=== PATIENT | female | born 1965 | race Caucasian/White ===

== ENCOUNTER 2017-07-05 15:59 | Observation (INO) | payer MEDICAID, OTHER ==
--- NOTE | 2017-07-05 17:00 | XR ---
EXAMINATION TYPE: XR chest 2V DATE OF EXAM: 07/05/2017 COMPARISON: July 16, 2011 HISTORY: Shortness of breath TECHNIQUE: Frontal and lateral views of the chest are obtained. FINDINGS: Scattered senescent parenchymal changes noted. No evidence for infiltrate. No evidence for atelectasis. Heart size is stable. Mediastinal structures are stable and grossly unremarkable. No evidence for hilar prominence. Degenerative changes dorsal spine. IMPRESSION: 1. No evidence for acute pulmonary disease.
[2017-07-05 17:03] LABS: Basophils # (A) 0.1 k/uL (0-0.2); Basophils % (A) 1 %; Eosinophils # (A) 0.2 k/uL (0-0.7); Eosinophils % (A) 3 %; HCT 33.3 % (34.0-46.0); HGB 10.2 gm/dL (11.4-16.0); Hypochromasia Slight; Lymphocytes # (A) 2.5 k/uL (1.0-4.8); Lymphocytes % (A) 33 %; MCH 23.3 pg (25.0-35.0); MCHC 30.6 g/dL (31.0-37.0); MCV 76.2 fL (80.0-100.0); Mean Platelet Volume 8.4; Monocytes # (A) 0.4 k/uL (0-1.0); Monocytes % (A) 6 %; Neutrophils # (A) 4.2 k/uL (1.3-7.7); Neutrophils % (A) 55 %; Platelet Count 289 k/uL (150-450); RBC 4.37 m/uL (3.80-5.40); RDW 14.2 % (11.5-15.5); WBC 7.5 k/uL (3.8-10.6)
[2017-07-05 17:11] LABS: INR 0.9 (<1.2); Partial Thromboplastin Time 23.2 sec (22.0-30.0); Prothrombin Time 9.5 sec (9.0-12.0)
[2017-07-05 17:13] LABS: ALT 28 U/L (9-52); AST 26 U/L (14-36); Albumin 4.3 g/dL (3.5-5.0); Alkaline Phosphatase 125 U/L (38-126); Anion Gap 15 mmol/L; Blood Urea Nitrogen 15 mg/dL (7-17); Calcium 9.5 mg/dL (8.4-10.2); Carbon Dioxide 23 mmol/L (22-30); Chloride 107 mmol/L (98-107); Creatine Kinase 93 U/L (30-135); Glucose 117 mg/dL (74-99); Lipase 110 U/L (23-300); Magnesium 1.8 mg/dL (1.6-2.3); Potassium 4.3 mmol/L (3.5-5.1); Sodium 145 mmol/L (137-145); Total Bilirubin 0.3 mg/dL (0.2-1.3); Total Protein 7.2 g/dL (6.3-8.2)
[2017-07-05 17:25] LABS: Troponin I <0.012 ng/mL (0.000-0.034)
--- NOTE | 2017-07-05 17:41 | ED ---
General Adult HPI - General Chief complaint: Chest Pain Stated complaint: Chest pain Time Seen by Provider: 07/05/17 16:44 Source: patient, RN notes reviewed, old records reviewed Mode of arrival: wheelchair Limitations: no limitations - History of Present Illness Initial comments: This is a 51-year-old male to the ER for evaluation. This patient presented today for evaluation regards to chest pain. Patient is no family history of chest pain no prior history of chest pain herself. She has no cardiac risk factors, but has had chest pain on and off for a week worse with exertion increasing shortness of breath. Patient has occasional diaphoresis. Currently no chest pain but she is having a racing heart, palpitations. Patient's chest pain is been episodic and weak. She is also felt fatigued - Related Data Home Medications Medication Instructions Recorded Confirmed Baclofen 10 mg PO TID 08/17/15 07/05/17 Gabapentin [Neurontin] 100 mg PO BID 08/17/15 07/05/17 Levothyroxine Sodium [Synthroid] 137 mcg PO QAM 08/17/15 07/05/17 Acetaminophen/Diphenhydramine 1 tab PO HS PRN 07/05/17 07/05/17 [Tylenol PM 500-25mg] Atorvastatin [Lipitor] 10 mg PO HS 07/05/17 07/05/17 Calcium Carbonate/Vitamin D3 1 tab PO DAILY 07/05/17 07/05/17 [Calcium 500-Vit D3 200 Tablet] Multivit with Calcium,Iron,Min 1 tab PO DAILY 07/05/17 07/05/17 [Women's Multivitamin] Allergies Allergy/AdvReac Type Severity Reaction Status Date / Time No Known Allergies Allergy Verified 07/05/17 16:45 Review of Systems ROS Statement: Those systems with pertinent positive or pertinent negative responses have been documented in the HPI. ROS Other: All systems not noted in ROS Statement are negative. Past Medical History Past Medical History: Thyroid Disorder History of Any Multi-Drug Resistant Organisms: None Reported Past Surgical History: Hysterectomy Additional Past Surgical History / Comment(s): thyroidectomy, fatty tumor Past Psychological History: No Psychological Hx Reported Smoking Status: Never smoker Past Alcohol Use History: None Reported Past Drug Use History: None Reported General Exam Limitations: no limitations General appearance: alert, in no apparent distress Head exam: Present: atraumatic, normocephalic, normal inspection Eye exam: Present: normal appearance, PERRL, EOMI. Absent: scleral icterus, conjunctival injection, periorbital swelling ENT exam: Present: normal exam, mucous membranes moist Neck exam: Present: normal inspection. Absent: tenderness, meningismus, lymphadenopathy Respiratory exam: Present: normal lung sounds bilaterally. Absent: respiratory distress, wheezes, rales, rhonchi, stridor Cardiovascular Exam: Present: regular rate, normal rhythm, normal heart sounds. Absent: systolic murmur, diastolic murmur, rubs, gallop, clicks GI/Abdominal exam: Present: soft, normal bowel sounds. Absent: distended, tenderness, guarding, rebound, rigid Extremities exam: Present: normal inspection, full ROM, normal capillary refill. Absent: tenderness, pedal edema, joint swelling, calf tenderness Back exam: Present: normal inspection Neurological exam: Present: alert, oriented X3, CN II-XII intact Psychiatric exam: Present: normal affect, normal mood Skin exam: Present: warm, dry, intact, normal color. Absent: rash Course Vital Signs 07/05/17 16:10 Temperature 97.6 F Pulse Rate 95 Respiratory 20 Rate Blood Pressure 138/80 O2 Sat by Pulse 99 Oximetry - Reevaluation(s) Reevaluation #1: 07/05/17 17:57 Patient still with episodic chest pain here in the emergency room, feels like her heart is racing EKG Findings - EKG Comments: EKG Findings:: EKG shows sinus rhythm rate of 94, WA 138, QRS 90, QTc 442 Medical Decision Making - Medical Decision Making 51 female the ER for evaluation of chest pain. Patient is recent week long history of chest pain, cardiac in nature shortness of breath. Will admit patient for cardiac observation - Lab Data Result diagrams: 07/05/17 16:32 07/05/17 16:32 Lab Results 07/05/17 07/05/17 07/05/17 Range/Units 16:32 16:32 16:32 WBC 7.5 (3.8-10.6) k/uL RBC 4.37 (3.80-5.40) m/uL Hgb 10.2 L (11.4-16.0) gm/dL Hct 33.3 L (34.0-46.0) % MCV 76.2 L (80.0-100.0) fL MCH 23.3 L (25.0-35.0) pg MCHC 30.6 L (31.0-37.0) g/dL RDW 14.2 (11.5-15.5) % Plt Count 289 (150-450) k/uL Neutrophils % 55 % Lymphocytes % 33 % Monocytes % 6 % Eosinophils % 3 % Basophils % 1 % Neutrophils # 4.2 (1.3-7.7) k/uL Lymphocytes # 2.5 (1.0-4.8) k/uL Monocytes # 0.4 (0-1.0) k/uL Eosinophils # 0.2 (0-0.7) k/uL Basophils # 0.1 (0-0.2) k/uL Hypochromasia Slight PT (9.0-12.0) sec INR (<1.2) APTT (22.0-30.0) sec Sodium 145 (137-145) mmol/L Potassium 4.3 (3.5-5.1) mmol/L Chloride 107 (98-107) mmol/L Carbon Dioxide 23 (22-30) mmol/L Anion Gap 15 mmol/L BUN 15 (7-17) mg/dL Creatinine 0.63 (0.52-1.04) mg/dL Est GFR (CKD-EPI)AfAm >90 (>60 ml/min/1.73 sqM) Est GFR (CKD-EPI)NonAf >90 (>60 ml/min/1.73 sqM) Glucose 117 H (74-99) mg/dL Calcium 9.5 (8.4-10.2) mg/dL Magnesium 1.8 (1.6-2.3) mg/dL Total Bilirubin 0.3 (0.2-1.3) mg/dL AST 26 (14-36) U/L ALT 28 (9-52) U/L Alkaline Phosphatase 125 (38-126) U/L Total Creatine Kinase 93 (30-135) U/L CK-MB (CK-2) 1.0 (0.0-2.4) ng/mL CK-MB (CK-2) Rel Index 1.1 Troponin I <0.012 (0.000-0.034) ng/mL NT-Pro-B Natriuret Pep pg/mL Total Protein 7.2 (6.3-8.2) g/dL Albumin 4.3 (3.5-5.0) g/dL Lipase 110 (23-300) U/L 07/05/17 07/05/17 Range/Units 16:32 16:32 WBC (3.8-10.6) k/uL RBC (3.80-5.40) m/uL Hgb (11.4-16.0) gm/dL Hct (34.0-46.0) % MCV (80.0-100.0) fL MCH (25.0-35.0) pg MCHC (31.0-37.0) g/dL RDW (11.5-15.5) % Plt Count (150-450) k/uL Neutrophils % % Lymphocytes % % Monocytes % % Eosinophils % % Basophils % % Neutrophils # (1.3-7.7) k/uL Lymphocytes # (1.0-4.8) k/uL Monocytes # (0-1.0) k/uL Eosinophils # (0-0.7) k/uL Basophils # (0-0.2) k/uL Hypochromasia PT 9.5 (9.0-12.0) sec INR 0.9 (<1.2) APTT 23.2 (22.0-30.0) sec Sodium (137-145) mmol/L Potassium (3.5-5.1) mmol/L Chloride (98-107) mmol/L Carbon Dioxide (22-30) mmol/L Anion Gap mmol/L BUN (7-17) mg/dL Creatinine (0.52-1.04) mg/dL Est GFR (CKD-EPI)AfAm (>60 ml/min/1.73 sqM) Est GFR (CKD-EPI)NonAf (>60 ml/min/1.73 sqM) Glucose (74-99) mg/dL Calcium (8.4-10.2) mg/dL Magnesium (1.6-2.3) mg/dL Total Bilirubin (0.2-1.3) mg/dL AST (14-36) U/L ALT (9-52) U/L Alkaline Phosphatase (38-126) U/L Total Creatine Kinase (30-135) U/L CK-MB (CK-2) (0.0-2.4) ng/mL CK-MB (CK-2) Rel Index Troponin I (0.000-0.034) ng/mL NT-Pro-B Natriuret Pep 60 pg/mL Total Protein (6.3-8.2) g/dL Albumin (3.5-5.0) g/dL Lipase (23-300) U/L - Radiology Data Radiology results: report reviewed (Chest x-rays negative for acute disease), image reviewed Critical Care Time Critical Care Time: Yes Total Critical Care Time: 31 Disposition Clinical Impression: Chest pain Disposition: ADMITTED IP TO THIS HOSP Condition: Undetermined Instructions: Chest Pain (ED) Referrals: Tamela Ngo MD [Primary Care Provider] - 1-2 days
[2017-07-05] MEDS ORDERED: HEPARIN SODIUM,PORCINE 5,000 UNIT/ML 1 ML VIAL IV ONE (17:54)
[2017-07-05] MEDS ORDERED: NITROGLYCERIN SL TABS 0.4 MG TAB SUBLINGUAL PRN (17:54)
[2017-07-05] MEDS ORDERED: ASPIRIN 81 MG PO STA (17:54)
[2017-07-05] MEDS ORDERED: HEPARIN SODIUM,PORCINE 5,000 UNIT/ML 1 ML VIAL IV PRN (17:54)
[2017-07-05] MEDS ORDERED: HEPARIN SOD,PORK IN 0.45% NACL 25,000 UNIT in 0.45% NACL 1 500ML.BAG IV SCH (18:00)
[2017-07-05 20:45] VITALS: BMI 28.8
[2017-07-05] MEDS ORDERED: ACETAMINOPHEN TAB 500 MG TAB PO PRN (21:08)
[2017-07-05] MEDS ORDERED: BACLOFEN 10 MG TAB PO SCH (21:15)
[2017-07-05] MEDS ORDERED: ATORVASTATIN 10 MG TAB PO SCH (21:15)
[2017-07-05] MEDS ORDERED: ACETAMINOPHEN TAB 325 MG TAB PO PRN (21:17)
[2017-07-05] MEDS ORDERED: diphenhydrAMINE 25 MG CAP PO PRN (21:21)
[2017-07-05] MEDS: METOPROLOL TARTRATE 25 MG TAB PO SCH (21:27)
[2017-07-05] MEDS: GABAPENTIN 100 MG CAP PO SCH (21:56)
[2017-07-06 00:37] LABS: Creatine Kinase 72 U/L (30-135)
[2017-07-06 00:50] LABS: Creatine Kinase MB 0.7 ng/mL (0.0-2.4); Troponin I <0.012 ng/mL (0.000-0.034)
[2017-07-06] MEDS ORDERED: LEVOTHYROXINE 137 MCG TAB PO SCH (06:30)
[2017-07-06 06:34] LABS: Mean Platelet Volume 8.2; Platelet Count 244 k/uL (150-450)
[2017-07-06 07:11] LABS: Creatine Kinase 66 U/L (30-135)
[2017-07-06 07:24] LABS: Creatine Kinase MB 0.6 ng/mL (0.0-2.4); Troponin I <0.012 ng/mL (0.000-0.034)
[2017-07-06 07:30] LABS: Cholesterol 193 mg/dL (<200); HDL Cholesterol 57 mg/dL (40-60); LDL Cholesterol,Calculated 82 mg/dL (0-99); Triglycerides 272 mg/dL (<150)
[2017-07-06] MEDS ORDERED: ATORVASTATIN 80 MG TAB PO SCH (09:00)
[2017-07-06] MEDS ORDERED: ASPIRIN 325 MG TAB PO SCH (09:00)
[2017-07-06] MEDS ORDERED: CALCIUM CARB-VIT D 500MG-200UN 1 EACH TAB PO SCH (09:00)
[2017-07-06] MEDS ORDERED: BACLOFEN 10 MG TAB PO SCH (09:00)
--- NOTE | 2017-07-06 09:36 | CONS ---
CONSULTATION CHIEF COMPLAINT: Chest pain and palpitations. HISTORY OF PRESENT ILLNESS: Saray is a 51-year-old lady with history of hypothyroidism, dyslipidemia, and chronic musculoskeletal pain, who presents to the hospital complaining of palpitations, sharp precordial pain. This has been going on for the last several weeks. She reported that this was somewhat worse yesterday and came to the ER and got admitted. Her chest discomfort is sharp, atypical, mild intensity, unrelated to exertion, associated with diaphoresis. There are no clear-cut relieving or exacerbating factors. Since being discharged home, she is doing well and is free of symptoms. EKG on her shows sinus rhythm without significant ST-T wave changes. Patient had 3 sets of cardiac enzymes that were all within normal limits and creatinine is normal at 0.6, hemoglobin is low at 10.2, LDL cholesterol is 82. PAST MEDICAL HISTORY: Significant for hypothyroidism and dyslipidemia. MEDICATIONS: Include Synthroid, Neurontin, baclofen, Lipitor and Tylenol. ALLERGIES: No known drug allergies. FAMILY HISTORY: Significant for premature coronary artery disease. SOCIAL HISTORY: Negative for current smoking, EtOH abuse or drug abuse. REVIEW OF SYSTEMS: HEENT is unremarkable. Cardiac as described above. Respiratory negative. GI negative. negative. Allergy negative. Skin negative. Musculoskeletal significant for arthritis. Psychosocial negative. Endocrine: Negative. Derm: Negative. Constitutional, oncological negative. Rest of the system review is not relevant. EXAM: Comfortable at rest. Vital signs is stable. There is no jugular venous distention. Carotid upstroke is normal. There is no bruit. Chest exam reveals good air entry bilaterally. Heart exam reveals first and second heart sounds. No gallop. No murmur. No rub. Abdomen is soft, nontender. Exam of extremities did not reveal any edema. Dorsalis pedis and posterior tibial pulses are normal. PAPER TUBE GRADER exam did not reveal focal neurological deficits. EKG does not reveal ischemic changes. Cardiac enzymes have been negative. ASSESSMENT: Chest pain, atypical and probably noncardiac in origin. So far, workup is benign and unremarkable. I will obtain a 2D echo and we should be able to discharge her home and arrange an outpatient stress test on her. MMODL / IJN: [id number] /
[2017-07-06] MEDS: METOPROLOL TARTRATE 25 MG TAB PO SCH (10:16)
[2017-07-06] MEDS: GABAPENTIN 100 MG CAP PO SCH (10:21)
[2017-07-06] MEDS ORDERED: MULTIVITAMINS, THERA 1 EACH TAB PO SCH (12:00)
--- NOTE | 2017-07-06 13:39 | ECHOF ---
Referral Reason:chest pain MEASUREMENTS -------- HEIGHT: 170.2 cm WEIGHT: 83.5 kg BP: RVIDd: 2.8 cm (< 3.3) IVSd: 0.9 cm (0.6 - 1.1) LVIDd: 4.8 cm (3.9 - 5.3) LVPWd: 0.8 cm (0.6 - 1.1) IVSs: 1.2 cm LVIDs: 3.6 cm LVPWs: 1.2 cm LA Diam: 3.9 cm (2.7 - 3.8) LAESV Index (A-L): 31.51 ml/m Ao Diam: 2.5 cm (2.0 - 3.7) AV Cusp: 1.7 cm (1.5 - 2.6) LA Diam: 3.9 cm (2.7 - 3.8) MV EXCURSION: 13.818 mm (> 18.000) MV EF SLOPE: 44 mm/s (70 - 150) EPSS: 1.4 cm MV E Hayden: 0.90 m/s MV DecT: 223 ms MV A Hayden: 1.07 m/s MV E/A Ratio: 0.84 RAP: 5.00 mmHg RVSP: 22.12 mmHg FINDINGS -------- Sinus rhythm. This was a technically good study. LV size, wall thickness and systolic function are normal, with an EF greater than 55%. The left alexander tricular size is normal. The right ventricle is normal in size. LA is midly dilated 29-33ml/m2. The right atrial size is normal. The aortic valve is trileaflet, and appears structurally normal. No aortic stenosis or regurgitation. Mild mitral regurgitation is present. Mild tricuspid regurgitation present. There is no evidence of pulmonary hypertension. The right v entricular systolic pressure, as measured by Doppler, is 22.12mmHg. There is no pulmonic regurgitation present. The aortic root size is normal. There is a trivial pericardial effusion present. CONCLUSIONS -------- 1. LV size, wall thickness and systolic function are normal, with an EF greater than 55%. 2. The left ventricular size is normal. 3. LA is midly dilated 29-33ml/m2. 4. The aortic valve is trileaflet, and appears structurally normal. No aortic stenosis or regurgitati on. 5. Mild mitral regurgitation is present. 6. Mild tricuspid regurgitation present. 7. There is no evidence of pulmonary hypertension. 8. The right ventricular systolic pressure, as measured by Doppler, is 22.12mmHg. 9. There is no pulmonic regurgitation present. 10. The aortic root size is normal. 11. There is a trivial pericardial effusion present. FARM LABORER: Brenda Vasquez RDCS
[2017-07-06 16:00] VITALS: BP 144/76; PULSE 81; RESP 18; TEMP 98.4
--- NOTE | 2017-07-06 18:28 | P.HPIM ---
History of Present Illness 51-year-old male to the ER for evaluation. This patient presented today for evaluation regards to chest pain. Patient is no family history of chest pain no prior history of chest pain herself. She has no cardiac risk factors, but has had chest pain on and off for a week worse with exertion increasing shortness of breath. Patient has occasional diaphoresis. Currently no chest pain but she is having a racing heart, palpitations. Patient's chest pain is been episodic and weak. She is also felt fatigued. Patient was ruled out acute coronary syndromes patient was a valid by cardiology and recommending outpatient stress test patient will be discharged . Review of Systems REVIEW OF SYSTEMS: CONSTITUTIONAL: No fever, no malaise, no fatigue. HEENT: No recent visual problems or hearing problems. Denied any sore throat. CARDIOVASCULAR: No orthopnea, PND, no palpitations, no syncope. PULMONARY: No shortness of breath, no cough, no hemoptysis. GASTROINTESTINAL: No diarrhea, no nausea, no vomiting, no abdominal pain. Normoactive bowel sounds. NEUROLOGICAL: No headaches, no weakness, no numbness. HEMATOLOGICAL: Denies any bleeding or petechiae. GENITOURINARY: Denies any burning micturition, frequency, or urgency. MUSCULOSKELETAL/RHEUMATOLOGICAL: Denies any joint pain, swelling, or any muscle pain. ENDOCRINE: Denies any polyuria or polydipsia. The rest of the 14-point review of systems is negative. Past Medical History Past Medical History: Hyperlipidemia, Osteoarthritis (OA), Thyroid Disorder Additional Past Medical History / Comment(s): Restless leg Sx History of Any Multi-Drug Resistant Organisms: None Reported Past Surgical History: Hysterectomy Additional Past Surgical History / Comment(s): thyroidectomy, fatty tumor Past Anesthesia/Blood Transfusion Reactions: Postoperative Nausea & Vomiting ( PONV) Past Psychological History: No Psychological Hx Reported Smoking Status: Never smoker Past Alcohol Use History: None Reported Past Drug Use History: None Reported - Past Family History Father Family Medical History: Cancer, Myocardial Infarction (MD) Additional Family Medical History / Comment(s): Bladder CA, from MD-CABG Mother Family Medical History: Diabetes Mellitus, Hypertension Additional Family Medical History / Comment(s): Mur[place] Son(s) Family Medical History: Diabetes Mellitus Sister(s) Family Medical History: Diabetes Mellitus, Hyperlipidemia Medications and Allergies Home Medications Medication Instructions Recorded Confirmed Type Baclofen 10 mg PO DAILY 08/17/15 07/05/17 History Gabapentin [Neurontin] 100 mg PO BID 08/17/15 07/05/17 History Levothyroxine Sodium [Synthroid] 137 mcg PO QAM 08/17/15 07/05/17 History Acetaminophen/Diphenhydramine 1 tab PO HS PRN 07/05/17 07/05/17 History [Tylenol PM 500-25mg] Atorvastatin [Lipitor] 10 mg PO HS 07/05/17 07/05/17 History Baclofen [Lioresal] 20 mg PO HS 07/05/17 07/05/17 History Calcium Carbonate/Vitamin D3 1 tab PO DAILY 07/05/17 07/05/17 History [Calcium 500-Vit D3 200 Tablet] Multivit with Calcium,Iron,Min 1 tab PO DAILY 07/05/17 07/05/17 History [Women's Multivitamin] Allergies Allergy/AdvReac Type Severity Reaction Status Date / Time No Known Allergies Allergy Verified 07/05/17 20:32 Physical Exam Vitals: Vital Signs Temp Pulse Pulse Resp BP BP BP 07/06/17 16:00 98.4 F 81 18 144/76 07/06/17 12:00 97.6 F 93 16 125/71 07/06/17 08:00 97.7 F 70 14 112/59 07/06/17 04:00 97.9 F 76 16 116/68 07/06/17 03:18 70 16 07/05/17 23:20 72 16 07/05/17 23:16 98.2 F 72 16 126/56 07/05/17 20:00 98.3 F 74 16 150/82 07/05/17 19:12 98.6 F 100 16 145/66 Pulse Ox 07/06/17 16:00 95 07/06/17 12:00 96 07/06/17 08:00 98 07/06/17 04:00 96 07/06/17 03:18 07/05/17 23:20 07/05/17 23:16 97 07/05/17 20:00 97 07/05/17 19:12 100 Intake and Output 07/06/17 07/06/17 07/06/17 06:59 14:59 22:59 Intake Total 579.943 Balance 579.943 Intake: IV 330 0.9 NS @ KVO 160 Heparin Sod,Pork in 0.45% 170 NaCl 25,000 unit In 0.45 % NaCl 1 500ml.bag @ 11.9 UNITS/KG/HR 19.86 mls/hr IV .Q24H [facility] Rx#: [id number] Intake, IV Titration 149.943 Amount Heparin Sod,Pork in 0.45% 149.943 NaCl 25,000 unit In 0.45 % NaCl 1 500ml.bag @ 11.9 UNITS/KG/HR 19.86 mls/hr IV .Q24H [facility] Rx#: [id number] Oral 100 Other: Voiding Method Toilet Toilet # Voids 2 PHYSICAL EXAMINATION: GENERAL: The patient is alert and oriented x3, not in any acute distress. Well developed, well nourished. HEENT: Pupils are round and equally reacting to light. EOMI. No scleral icterus. No conjunctival pallor. Normocephalic, atraumatic. No pharyngeal erythema. No thyromegaly. CARDIOVASCULAR: S1 and S2 present. No murmurs, rubs, or gallops. PULMONARY: Chest is clear to auscultation, no wheezing or crackles. ABDOMEN: Soft, nontender, nondistended, normoactive bowel sounds. No palpable organomegaly. MUSCULOSKELETAL: No joint swelling or deformity. EXTREMITIES: No cyanosis, clubbing, or pedal edema. NEUROLOGICAL: Gross neurological examination did not reveal any focal deficits. SKIN: No rashes. Results CBC & Chem 7: 07/06/17 06:21 07/05/17 16:32 Labs: Abnormal Lab Results - Last 24 Hours (Table) 07/05/17 07/06/17 07/06/17 Range/Units 23:55 06:21 08:10 APTT 36.9 H 43.5 H (22.0-30.0) sec Triglycerides 272 H (<150) mg/dL Thrombosis Risk Factor Assmnt - Choose All That Apply Each Factor Represents 1 point: Age 41-60 years Thrombosis Risk Factor Assessment Total Risk Factor Score: 1 Thrombosis Risk Factor Assessment Level: Low Risk Assessment and Plan Plan: 1 chest pain: Rule out acute coronary syndromes probably related to anxiety noncardiac chest pain outpatient stress test. 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
--- NOTE | 2017-07-06 18:29 | P.DS ---
Providers Date of admission: 07/05/17 17:54 Attending physician: Jorge Lovelace Consults: 07/05/17 17:54 Consult Physician Urgent Consulting Provider: Ramone Roper Consult Reason/Comments: cp Do you want consulting provider notified?: Yes Primary care physician: Jeni Rapp [facility] Course: Please refer to my HPI Patient Condition at Discharge: Undetermined Plan - Discharge Summary Discharge Rx Participant: No New Discharge Prescriptions: No Action Baclofen 10 mg PO DAILY Levothyroxine Sodium [Synthroid] 137 mcg PO QAM Gabapentin [Neurontin] 100 mg PO BID Multivit with Calcium,Iron,Min [Women's Multivitamin] 1 tab PO DAILY Acetaminophen/Diphenhydramine [Tylenol PM 500-25mg] 1 tab PO HS PRN PRN Reason: Pain Calcium Carbonate/Vitamin D3 [Calcium 500-Vit D3 200 Tablet] 1 tab PO DAILY Atorvastatin [Lipitor] 10 mg PO HS Baclofen [Lioresal] 20 mg PO HS Discharge Medication List Baclofen 10 mg PO DAILY 08/17/15 [History] Gabapentin [Neurontin] 100 mg PO BID 08/17/15 [History] Levothyroxine Sodium [Synthroid] 137 mcg PO QAM 08/17/15 [History] Acetaminophen/Diphenhydramine [Tylenol PM 500-25mg] 1 tab PO HS PRN 07/05/17 [ History] Atorvastatin [Lipitor] 10 mg PO HS 07/05/17 [History] Baclofen [Lioresal] 20 mg PO HS 07/05/17 [History] Calcium Carbonate/Vitamin D3 [Calcium 500-Vit D3 200 Tablet] 1 tab PO DAILY [History] Multivit with Calcium,Iron,Min [Women's Multivitamin] 1 tab PO DAILY 07/05/17 [ History] Follow up Appointment(s)/Referral(s): Tamela Ngo MD [Primary Care Provider] - 1-2 days Dante Patricia MD [STAFF PHYSICIAN] - 1 Week (Office will call to arrange follow up appointment) Patient Instructions/Handouts: Chest Pain (ED) Discharge Disposition: HOME SELF-CARE
== END 2017-07-06 17:35 | disposition home or self-care (01) ==
LOC: EC 15:59 → 3SUR 17:54
PROVIDERS: ADMIT Hospitalist; ATTEND Hospitalist
DX: R07.89 Other chest pain (principal); R07.2 Precordial pain; R00.0 Tachycardia, unspecified; R00.2 Palpitations; M79.1 Myalgia; R53.1 Weakness; G89.29 Other chronic pain; R06.02 Shortness of breath; M54.5 Low back pain; E89.0 Postprocedural hypothyroidism; R61 Generalized hyperhidrosis; F41.9 Anxiety disorder, unspecified; D64.9 Anemia, unspecified; G25.81 Restless legs syndrome; M19.90 Unspecified osteoarthritis, unspecified site; E78.5 Hyperlipidemia, unspecified; G62.9 Polyneuropathy, unspecified; Z79.899 Other long term (current) drug therapy; Z82.49 Family history of ischemic heart disease and other diseases of the circulatory system; Z80.52 Family history of malignant neoplasm of bladder; Z83.3 Family history of diabetes mellitus
CPT/HCPCS: 99291 ×2; 96376 ×2; 96365; 96366 ×3; 36415; 93005; 93306; 83880; 80061; 80053; 82550 ×2; 82553 ×2; 83690; 83735; 84484 ×2; 85025; 85049; 85610; 85730 ×2; 71046; G0378 ×2; J1644 ×2

== ENCOUNTER 2017-08-16 10:20 | Day surgery (SDC) | payer MEDICAID ==
[2017-08-13 14:42] VITALS: BMI 30.4
[~2017-08-16 10:20] MED LIST: ALPRAZolam 0.25 MG TAB PO PRN; ALPRAZolam 0.5 MG TAB PO PRN; ASPIRIN 325 MG TAB PO STA; NITROGLYCERIN SL TABS 0.4 MG TAB SUBLINGUAL PRN; SODIUM CHLORIDE 0.9% 1,000 ML in EMPTY BAG 1 BAG IV ONE
[2017-08-16 11:08] LABS: Anisocytosis Slight; Basophils % (A) 1 %; Eosinophils # (A) 0.2 k/uL (0-0.7); Eosinophils % (A) 3 %; HCT 38.6 % (34.0-46.0); HGB 12.4 gm/dL (11.4-16.0); Lymphocytes # (A) 1.3 k/uL (1.0-4.8); Lymphocytes % (A) 25 %; MCH 25.7 pg (25.0-35.0); MCV 80.3 fL (80.0-100.0); Mean Platelet Volume 7.9; Microcytosis Slight; Monocytes # (A) 0.3 k/uL (0-1.0); Monocytes % (A) 6 %; Neutrophils # (A) 3.2 k/uL (1.3-7.7); Neutrophils % (A) 63 %; Platelet Count 251 k/uL (150-450); RBC 4.81 m/uL (3.80-5.40); RDW 18.4 % (11.5-15.5); WBC 5.1 k/uL (3.8-10.6)
[2017-08-16 11:15] VITALS: PULSE 90; RESP 20; TEMP 99.2
[2017-08-16 11:18] LABS: Anion Gap 14 mmol/L; Blood Urea Nitrogen 10 mg/dL (7-17); Calcium 9.8 mg/dL (8.4-10.2); Carbon Dioxide 27 mmol/L (22-30); Chloride 104 mmol/L (98-107); Glucose 94 mg/dL (74-99); Potassium 4.4 mmol/L (3.5-5.1); Sodium 145 mmol/L (137-145)
[2017-08-16] MEDS ORDERED: MIDAZOLAM 2 MG/2 ML VIAL IV ONE (12:39)
[2017-08-16] MEDS ORDERED: LIDOCAINE 2% INJ 20 MG/ML SQ ONE (12:42)
[2017-08-16] MEDS ORDERED: HEPARIN SODIUM 1,000 UN/ML (10ML VL) IV ONE (12:46)
[2017-08-16] MEDS ORDERED: fentaNYL (PF) 50 MCG/ML 2 ML AMP IV ONE (12:48)
[2017-08-16] MEDS ORDERED: IOPAMIDOL-370 125ML BTL INJ ONE (12:50)
[2017-08-16] MEDS ORDERED: RX INFO: IV CONTRAST WAS GIVEN 1 EACH MISC MISCELLANE PRN (12:56)
[2017-08-16] MEDS ORDERED: SODIUM CHLORIDE 0.9% 1,000 ML IV SCH (13:00)
--- NOTE | 2017-08-16 14:53 | LTR ---
August 16, [address] Ngo: Mrs. Saray Merrill underwent a heart catheterization and that revealed normal coronaries. I want to thank you for allowing me to participate in the care and please do not hesitate to call if you have any question or concern. AYSHA / IJN: [id number] /
--- NOTE | 2017-08-16 15:11 | CC ---
CARDIAC CATHETERIZATION REPORT DATE OF SERVICE: 08/16/2017 PERFORMING PHYSICIAN: Lul Jolly MD, Carpet Cleaner. PROCEDURE PERFORMED: Selective right and left coronary angiogram. INDICATION: This is a very pleasant 51-year-old female patient who was having chest discomfort and underwent myocardial perfusion imaging stress test and that revealed anterior ischemia. Because of that, a heart catheterization was recommended. APPROACH: Right radial artery. COMPLICATION: None. LEVEL OF SEDATION: Moderate with sedation length of 12 minutes. PROCEDURE DESCRIPTION: After obtaining an informed consent, the patient was brought to the Cardiac [employer]iting [employer]. The right radial artery was cannulated using micropuncture technique. The micropuncture wire passed easily, then I placed a 6-Wallisian sheath in the right radial artery. After that, I gave the patient 2 mg of verapamil IA and 8000 units of heparin IV. Selective right and left coronary angiogram was performed using JR4 and JL3.5 catheters and the procedure was performed without any complication. SELECTIVE CORONARY ANGIOGRAM: 1. The right coronary artery is a large caliber vessel and it is a dominant vessel. It is angiographically normal. Distally bifurcates into PDA and PLV branches, both are angiographically normal. 2. The left main is angiographically normal. It bifurcates into left circumflex, ramus intermedius, and left anterior descending artery. 3. The left circumflex is a large caliber vessel. It is a nondominant vessel. The proximal circ is angiographically normal. The mid circ is normal and gives rise into OM branch which seems to be angiographically normal and the circ distally is angiographically normal. 4. The ramus intermedius is a large caliber vessel and seems to be angiographically normal. 5. The LAD: The proximal LAD is normal. The mid LAD is normal and gives rise into a large diagonal branch which seems to be angiographically normal and then distally becomes small caliber vessel and seems to be normal as well. CONCLUSION: Normal coronary angiogram. POSTPROCEDURE MANAGEMENT: Maximize medical treatment and follow up with the patient. MMODL / IJN: [id number] /
[2017-08-16 18:10] VITALS: BP 133/67
== END 2017-08-16 18:00 | disposition home or self-care (01) ==
LOC: CATHCVL 10:20
PROVIDERS: ATTEND Internal Medicine Interventional Cardiology
DX: R07.89 Other chest pain (principal); R94.39 Abnormal result of other cardiovascular function study; E78.5 Hyperlipidemia, unspecified; Z82.49 Family history of ischemic heart disease and other diseases of the circulatory system; Z79.82 Long term (current) use of aspirin; Z79.890 Hormone replacement therapy; Z79.899 Other long term (current) drug therapy
CPT/HCPCS: 93454; 80048; 85025; C1894; J2001; J2250; J3010; J1644; Q9967

== ENCOUNTER → 2018-07-22 | Outpatient (CLI) | payer MEDICAID ==
--- NOTE | 2018-07-22 22:09 | CT ---
EXAMINATION TYPE: CT abdomen pelvis w con DATE OF EXAM: 07/22/2018 HISTORY: abdominal mass, ascending colon mass per order. CT DLP: 1133.0mGycm Automated Exposure Control for Dose Reduction was Utilized. CONTRAST: CT scan of the abdomen and pelvis is performed with IV Contrast, patient injected with 100 mL of Isov ue 300. COMPARISON: CT abdomen and pelvis July 16, 2011 FINDINGS: LUNG BASES: There is right basilar linear scarring and/or atelectasis. There is a tiny pericardial ef fusion. LIVER/GB: Liver is diffusely low dense consistent with fatty infiltration. No suspicious focal masses are clearly seen.. PANCREAS: No significant abnormality is seen. SPLEEN: No significant abnormality is seen. ADRENALS: No significant abnormality is seen. KIDNEYS: There is symmetric cortical medullary uptake and excretion without hydronephrosis seen bilat erally.. BOWEL: Oral contrast reaches the level of rectum. Normal contrast-filled appendix is seen from the ba se of cecum. Focal mild wall thickening in the right colon axial image 47 could reflect polypoid type mass or neoplasm corresponding to coronal image 30. This additional area of mild wall thickening chris r the hepatic flexure. No suspicious adjacent adenopathy is seen. There is mild wall thickening over a longer segment in the mid to distal sigmoid colon with rare diverticula. No CT evidence for acute d iverticulitis. UTERUS/ADNEXA: Uterus is surgically absent or markedly atrophic. Scattered pelvic phleboliths are pre sent. LYMPH NODES: No greater than 1cm abdominal or pelvic lymph nodes are appreciated. OSSEOUS STRUCTURES: Advanced disc space narrowing at L5-S1 level is seen. OTHER: No significant additional abnormality is seen. IMPRESSION: 1. Primary right sided mass or neoplasm not well visualized on CT versus presumed colonoscopy. No met astatic disease or suspicious adenopathy is noted.
== END ==
LOC: RADCTMAIN 14:37
PROVIDERS: ATTEND Surgery
DX: K63.89 Other specified diseases of intestine (principal)
CPT/HCPCS: 74177; Q9967

== ENCOUNTER → 2018-07-22 | Day surgery (SDC) | payer MEDICAID ==
[2018-07-18 10:50] VITALS: BMI 31.3
[~2018-07-22] MED LIST changes: -ALPRAZolam 0.25 MG TAB PO PRN; -ALPRAZolam 0.5 MG TAB PO PRN; -ASPIRIN 325 MG TAB PO STA; +LACTATED RINGERS 1,000 ML IV SCH; +LIDOCAINE 1% 20 ML VIAL (10MG/ML) FOR IV START INTRADERMA PRN; +LIDOCAINE 1% INJ 10MG/ML (20 ML MDV) ONE; +MIDAZOLAM (PF) 2 MG/2 ML VIAL IV PRN; -NITROGLYCERIN SL TABS 0.4 MG TAB SUBLINGUAL PRN; +PROPOFOL 10 MG/ML 20 ML VIAL IV ONE; -SODIUM CHLORIDE 0.9% 1,000 ML in EMPTY BAG 1 BAG IV ONE
[2018-07-22 12:15] VITALS: TEMP 98.2
--- NOTE | 2018-07-22 13:14 | P.PCN ---
Date of Procedure: 07/22/18 Preoperative Diagnosis: Colon cancer screening Postoperative Diagnosis: Ascending colon mass, colon polyps, diverticulosis Procedure(s) Performed: Colonoscopy with polypectomy and biopsy Anesthesia: MAC Surgeon: Claudia Gatica Pathology: other Condition: stable Disposition: PACU Indications for Procedure: Patient presented for screening. Description of Procedure: The patient's taken to the endoscopy suite where colonoscope is passed per rectum to the cecum. She has a good prep. There is a few diverticuli noted in the sigmoid colon. She has 2 small polyps in the left: 1:30 and one at 70 cm which are removed with a lumpectomy snare. Just proximal to the ileocecal fat pad there is a large polypoid mass. This is likely a small colon cancer or very large dysplastic polyp. Polypectomy snare was used to remove a segment and sent for pathology. The rest the colon was without evidence of mass lesion ulcer or other mucosal abnormality. She tolerated the procedure without difficulty and is taken recovery room in satisfactory condition. Set her up for a computed tomography scan of the abdomen in order a CEA. There in the office in a week. Plan - Discharge Summary Discharge Rx Participant: No New Discharge Prescriptions: No Action Baclofen 10 mg PO TID Levothyroxine Sodium [Synthroid] 137 mcg PO QAM Gabapentin [Neurontin] 100 mg PO BID Multivit with Calcium,Iron,Min [Women's Multivitamin] 1 tab PO DAILY Atorvastatin [Lipitor] 10 mg PO HS Metoprolol Tartrate [Lopressor] 25 mg PO HS PRN PRN Reason: increased heart rate Ferrous Sulfate [Iron (65 MG Elemental)] 325 mg PO BID Aspirin 81 mg PO DAILY Discharge Medication List Baclofen 10 mg PO TID 08/17/15 [History] Gabapentin [Neurontin] 100 mg PO BID 08/17/15 [History] Levothyroxine Sodium [Synthroid] 137 mcg PO QAM 08/17/15 [History] Atorvastatin [Lipitor] 10 mg PO HS 07/05/17 [History] Multivit with Calcium,Iron,Min [Women's Multivitamin] 1 tab PO DAILY 07/05/17 [History] Aspirin 81 mg PO DAILY 08/13/17 [History] Ferrous Sulfate [Iron (65 MG Elemental)] 325 mg PO BID 08/13/17 [History] Metoprolol Tartrate [Lopressor] 25 mg PO HS PRN 08/13/17 [History]
[2018-07-22 13:57] VITALS: BP 149/84; PULSE 75
[2018-07-22 15:16] LABS: Blood Urea Nitrogen 13 mg/dL (7-17)
== END | disposition home or self-care (01) ==
LOC: ORWHC2ENDO 11:37
PROVIDERS: ATTEND Surgery
DX: Z12.11 Encounter for screening for malignant neoplasm of colon (principal); D12.2 Benign neoplasm of ascending colon; D12.4 Benign neoplasm of descending colon; K57.30 Diverticulosis of large intestine without perforation or abscess without bleeding; E78.5 Hyperlipidemia, unspecified; E07.9 Disorder of thyroid, unspecified; G25.81 Restless legs syndrome; G62.9 Polyneuropathy, unspecified; M19.90 Unspecified osteoarthritis, unspecified site; Z79.890 Hormone replacement therapy; Z79.899 Other long term (current) drug therapy; Z79.82 Long term (current) use of aspirin
CPT/HCPCS: 88305; 82378; 82565; 84520; 45385; J2001; J2704

== ENCOUNTER → 2018-08-23 | Outpatient (CLI) | payer MEDICAID ==
[2018-08-23 11:00] LABS: HCT 40.4 % (34.0-46.0); HGB 12.9 gm/dL (11.4-16.0); MCH 28.2 pg (25.0-35.0); MCHC 31.9 g/dL (31.0-37.0); MCV 88.5 fL (80.0-100.0); Platelet Count 248 k/uL (150-450); RBC 4.56 m/uL (3.80-5.40); RDW 14.1 % (11.5-15.5); WBC 6.2 k/uL (3.8-10.6)
[2018-08-23 11:14] LABS: Potassium 4.2 mmol/L (3.5-5.1)
== END ==
LOC: LABPAT 10:07
PROVIDERS: ATTEND Anesthesiology
DX: Z01.818 Encounter for other preprocedural examination (principal); Z01.812 Encounter for preprocedural laboratory examination
CPT/HCPCS: 36415; 80051; 85027; 93005

== ENCOUNTER 2018-08-26 11:29 | Inpatient (IN) | payer MEDICAID ==
[2018-08-21 10:52] VITALS: BMI 29.7
[~2018-08-26 11:29] MED LIST changes: +DEXAMETHASONE SOD PHOSPHATE 10 MG/ML 1 ML VIAL IV ONE; +HEPARIN SODIUM,PORCINE 5,000 UNIT/ML 1 ML VIAL SQ ONE; -LACTATED RINGERS 1,000 ML IV SCH; -LIDOCAINE 1% 20 ML VIAL (10MG/ML) FOR IV START INTRADERMA PRN; -LIDOCAINE 1% INJ 10MG/ML (20 ML MDV) ONE; -MIDAZOLAM (PF) 2 MG/2 ML VIAL IV PRN; +MIDAZOLAM 2 MG/2 ML VIAL IV PRN; +ONDANSETRON 4 MG/2 ML VIAL IVP ONE; -PROPOFOL 10 MG/ML 20 ML VIAL IV ONE; +SCOPOLAMINE 1.5MG/72HR PATCH TRANSDERM ONE; +ceFAZolin IN SWFI 2 GM/20 ML SYRINGE IVP ONE; +metroNIDAZOLE-NS PMX 500 MG in SALINE 1 100ML.BAG IVPB ONE
[2018-08-26] MEDS: LACTATED RINGERS 1,000 ML IV SCH (12:29)
[2018-08-26] MEDS ORDERED: MIDAZOLAM 2 MG/2 ML VIAL ONE (13:44)
[2018-08-26] MEDS ORDERED: HYDROmorphone (PF) 1 MG/ML ONE (13:44)
[2018-08-26] MEDS ORDERED: fentaNYL (PF) 50 MCG/ML 2 ML AMP ONE (13:44)
[2018-08-26] MEDS ORDERED: LIDOCAINE 1% INJ 10MG/ML (20 ML MDV) ONE (13:44)
[2018-08-26] MEDS ORDERED: ROCURONIUM BROMIDE 10 MG/ML 10 ML VIAL IV ONE (13:44)
[2018-08-26] MEDS ORDERED: NEOSTIGMINE 1 MG/ML 10 ML VIAL ONE (13:44)
[2018-08-26] MEDS ORDERED: SUCCINYLCHOLINE CHLORIDE 100 MG/5 ML SYR IV ONE (13:44)
[2018-08-26] MEDS ORDERED: PROPOFOL 10 MG/ML 20 ML VIAL IV ONE (13:44)
[2018-08-26] MEDS ORDERED: GLYCOPYRROLATE 0.2 MG/ML 2 ML VIAL ONE (13:44)
[2018-08-26] MEDS ORDERED: KETOROLAC 30 MG/ML 1 ML VIAL ONE (13:44)
[2018-08-26] MEDS ORDERED: BUPIVACAIN-EPI 0.25%-1:200,000 30 ML VIAL SQ ONE (14:21)
[2018-08-26] MEDS ORDERED: LIDOCAINE 1%/EPI 1:200,000 MPF 10 ML VIAL SQ ONE (14:31)
[2018-08-26] MEDS ORDERED: LACTATED RINGERS 1,000 ML IV ONE (15:00)
[2018-08-26] MEDS ORDERED: HYDROcodone/APAP 5-325MG 1 EACH TAB PO PRN ×2 (16:04)
--- NOTE | 2018-08-26 16:04 | P.OP ---
Date of Procedure: 08/26/18 Preoperative Diagnosis: Colon polyp Postoperative Diagnosis: Colon polyp Procedure(s) Performed: Robotic assisted right hemicolectomy Anesthesia: VELASQUEZ Surgeon: Claudia Gatica Estimated Blood Loss (ml): 100 Pathology: other (right colon) Condition: stable Disposition: observation Indications for Procedure: The patient has a large polyp in the right colon which could not be removed endoscopically Operative Findings: The liver, diaphragm, large and small bowel were all grossly normal where they were seen Description of Procedure: The patient's taken the operative suite where she is prepped and draped in the usual sterile manner under a general endotracheal anesthetic. A small incision is made to the right of the umbilicus and a optical trocar is placed into the abdominal cavity under visualization. Pneumoperitoneum was established with CO2 gas. Sites were chosen for accessory trochars needs are placed through small skin incisions. The terminal ileum and right colon are examined and there is no significant adhesions or other abnormalities. Therefore the robot is docked. Starting in the proximal transverse colon, the colon is mobilized using the vessel sealer. The colon is then taken down along the white line of Toldt. The appendix, cecum, terminal ileum were also mobilized using vessel sealer. The bowel was then mobilized medially along the avascular plane. Once adequate mobilization was carried out, which site is chosen for removal of the specimen. Thorough [place] was undocked and the laparoscopic instruments were removed. A small incision was made in the right mid abdomen. The anterior fascia was incised. The muscle was mobilized along the direction of its fibers and then the posterior fascia and peritoneum were incised. The transverse colon was then brought up through the incision. The omentum was divided with LigaSure. Opening was made in the mesentery of the colon and a stapler was placed and fired. The distal segment is tagged with 0 Vicryl and dropped back into the abdominal cavity. The mesentery was then taken down either using LigaSure or the larger vessels were clamped, cut and tied with 0 Vicryl suture. A site was then chosen on the terminal ileum for resection. A TRACIE stapler was placed and fired. The specimen was passed off. The antimesenteric border of the terminal ileum was then tacked to the transverse colon using 3-0 Vicryl. A small enterotomy was made in each limb of the bowel and a TRACIE stapler was placed and fired. The staple line appeared hemostatic. The remaining defect was closed with a TA 60 stapler. There was a good lumen to finger palpation. The bowel was dropped back into the abdominal cavity. Close were changed. The posterior fascia and peritoneum were closed with 0 Vicryl. This muscle layers were allowed to fall back together. The anterior fascia was closed with 0 Vicryl. Fascia at the 12 mm trocar site was closed with 0 Vicryl. Skin incisions were closed with celeste. Sterile dressings were applied. She tolerated the p rocedure without difficulty and was taken recovery room in satisfactory condition. According to or personnel, all counts are correct.
[2018-08-26] MEDS ORDERED: NALOXONE 0.4 MG/ML 1 ML VIAL IV PRN (16:06)
[2018-08-26] MEDS ORDERED: ONDANSETRON 4 MG/2 ML VIAL IVP PRN (16:06)
[2018-08-26] MEDS: HYDROmorphone 0.5 MG/0.5 ML SYRINGE IVP PRN ×2 (17:04→17:11)
[2018-08-26] MEDS: KETOROLAC 30 MG/ML 1 ML VIAL IVP SCH (20:56)
[2018-08-26] MEDS: metroNIDAZOLE-NS PMX 500 MG in SALINE 1 100ML.BAG IVPB SCH (20:56)
[2018-08-26] MEDS: ceFAZolin IN SWFI 2 GM/20 ML SYRINGE IVP SCH (20:56)
[2018-08-26] MEDS: METOCLOPRAMIDE 5 MG/ML 2 ML VIAL IVP SCH (20:56)
[2018-08-26] MEDS: FAMOTIDINE 20 MG TAB PO SCH ×2 (20:57→21:04)
[2018-08-26] MEDS: METOPROLOL TARTRATE 12.5 MG TAB PO SCH ×2 (20:57→21:05)
[2018-08-26] MEDS: ATORVASTATIN 10 MG TAB PO SCH ×2 (20:57→21:05)
[2018-08-26] MEDS: GABAPENTIN 100 MG CAP PO SCH ×2 (20:57→21:04)
[2018-08-27] MEDS ORDERED: HYDROcodone/APAP 5-325MG 1 EACH TAB ONE (03:00)
[2018-08-27] MEDS ORDERED: KETOROLAC 30 MG/ML 1 ML VIAL ONE (03:00)
[2018-08-27] MEDS ORDERED: METOCLOPRAMIDE 5 MG/ML 2 ML VIAL ONE (03:00)
[2018-08-27] MEDS: KETOROLAC 30 MG/ML 1 ML VIAL IVP SCH ×4 (05:14→19:06)
[2018-08-27] MEDS: METOCLOPRAMIDE 5 MG/ML 2 ML VIAL IVP SCH ×4 (05:14→19:06)
[2018-08-27] MEDS: ceFAZolin IN SWFI 2 GM/20 ML SYRINGE IVP SCH (05:35)
[2018-08-27] MEDS: metroNIDAZOLE-NS PMX 500 MG in SALINE 1 100ML.BAG IVPB SCH (05:36)
[2018-08-27] MEDS: LEVOTHYROXINE 137 MCG TAB PO SCH (05:38)
[2018-08-27] MEDS: LACTATED RINGERS 1,000 ML IV SCH (05:39)
[2018-08-27] MEDS: GABAPENTIN 100 MG CAP PO SCH ×2 (08:08→20:17)
[2018-08-27] MEDS: FAMOTIDINE 20 MG TAB PO SCH ×2 (08:08→20:17)
[2018-08-27 08:48] LABS: Basophils % (A) 0 %; Eosinophils % (A) 0 %; HCT 41.8 % (34.0-46.0); HGB 13.3 gm/dL (11.4-16.0); Lymphocytes % (A) 6 %; MCHC 31.8 g/dL (31.0-37.0); MCV 88.1 fL (80.0-100.0); Mean Platelet Volume 8.5; Monocytes # (A) 0.9 k/uL (0-1.0); Monocytes % (A) 6 %; Neutrophils # (A) 13.4 k/uL (1.3-7.7); Neutrophils % (A) 87 %; Platelet Count 273 k/uL (150-450); RBC 4.75 m/uL (3.80-5.40); RDW 13.6 % (11.5-15.5); WBC 15.4 k/uL (3.8-10.6)
[2018-08-27 09:10] LABS: Anion Gap 10 mmol/L; Blood Urea Nitrogen 14 mg/dL (7-17); Calcium 9.7 mg/dL (8.4-10.2); Carbon Dioxide 27 mmol/L (22-30); Chloride 105 mmol/L (98-107); Glucose 114 mg/dL (74-99); Sodium 142 mmol/L (137-145)
--- NOTE | 2018-08-27 15:26 | P.PN ---
Subjective Progress Note Date: 08/27/18 Principal diagnosis: S/P right hemicolectomy The patient is POD#1 robotic assisted right hemicolectomy. She is having expected incisional pain. No nausea or vomiting. Occasional belching. Doing well with oral intake. Ambulating well in the room Objective - Vital Signs Vital signs: Vital Signs Temp 98.5 F 08/27/18 14:04 Pulse 76 08/27/18 14:04 Resp 15 08/27/18 14:04 BP 115/69 08/27/18 14:04 Pulse Ox 92 L 08/27/18 14:04 Intake & Output 08/26/18 08/27/18 08/27/18 18:59 06:59 18:59 Intake Total 1700 260 Output Total 195 350 350 Balance 1505 -90 -350 Intake: IV 1700 Intake, IV Titration 260 Amount Lactated Ringers 1,000 ml 60 @ 20 mls/hr IV .Q24H [facility] Rx#:[id number] metroNIDAZOLE-NS PMX 500 100 mg In Saline 1 100ml.bag @ 100 mls/hr IVPB ONCE ONE Rx#:[id number] metroNIDAZOLE-NS PMX 500 100 mg In Saline 1 100ml.bag @ 100 mls/hr IVPB Q8H [facility] Rx#:[id number] Output: Urine 170 350 350 Estimated Blood Loss 25 - Constitutional General appearance: Present: cooperative, no acute distress - Respiratory Respiratory: bilateral: CTA, diminished (Mildly at the bases) - Cardiovascular Rhythm: regular - Gastrointestinal General gastrointestinal: Present: normal bowel sounds, soft. Absent: distended Localized gastrointestinal: surgical scar: diffuse (Dressings are intact clean and dry) - Labs CBC & Chem 7: 08/27/18 07:41 08/27/18 07:41 Labs: Abnormal Lab Results - Last 24 Hours (Table) 08/27/18 08/27/18 Range/Units 07:41 07:41 WBC 15.4 H (3.8-10.6) k/uL Neutrophils # 13.4 H (1.3-7.7) k/uL Glucose 114 H (74-99) mg/dL Assessment and Plan (1) Adenoma of colon Current Visit: Yes Status: Acute Code(s): D12.6 - BENIGN NEOPLASM OF COLON, UNSPECIFIED SNOMED Code(s): 173789265 (2) Neoplasm of uncertain behavior of colon Current Visit: Yes Status: Acute Code(s): D37.4 - NEOPLASM OF UNCERTAIN BEHAVIOR OF COLON SNOMED Code(s): 67390164 Plan: Radford catheter was left in the patient after surgery. Order was to discontinue it. She did not receive and incentive spirometry. Looking back at the orders it appears the order was accidentally removed before he signed the orders. We'll get a incentive spirometer for her now. Encourage activity. Hopefully ready for discharge in the next day or 2.
[2018-08-27] MEDS: ATORVASTATIN 10 MG TAB PO SCH (20:17)
[2018-08-27] MEDS: METOPROLOL TARTRATE 12.5 MG TAB PO SCH (20:17)
[2018-08-28] MEDS: KETOROLAC 30 MG/ML 1 ML VIAL IVP SCH ×2 (00:33→05:45)
[2018-08-28] MEDS: METOCLOPRAMIDE 5 MG/ML 2 ML VIAL IVP SCH (00:33)
[2018-08-28] MEDS: LACTATED RINGERS 1,000 ML IV SCH (05:43)
[2018-08-28] MEDS: LEVOTHYROXINE 137 MCG TAB PO SCH (05:45)
[2018-08-28 07:11] VITALS: BP 155/82; PULSE 86; RESP 14; TEMP 98.4
[2018-08-28] MEDS: GABAPENTIN 100 MG CAP PO SCH (07:53)
[2018-08-28] MEDS: FAMOTIDINE 20 MG TAB PO SCH (07:53)
--- NOTE | 2018-08-28 10:53 | P.PN ---
Subjective Progress Note Date: 08/28/18 Principal diagnosis: S/P right hemicolectomy The patient had diarrhea last night. It was watery, similar to her bowel prep. None this morning. She is able to tolerate breakfast and ate well. Using incentive spirometry. Pain is well controlled. Objective - Vital Signs Vital signs: Vital Signs Temp 98.4 F 08/28/18 06:53 Pulse 86 08/28/18 06:53 Resp 14 08/28/18 06:53 BP 155/82 08/28/18 06:53 Pulse Ox 98 08/28/18 06:53 Intake & Output 08/27/18 08/28/18 08/28/18 18:59 06:59 18:59 Intake Total 400 60 Output Total 650 Balance -250 60 Intake: Intake, IV Titration 60 Amount Lactated Ringers 1,000 ml 60 @ 20 mls/hr IV .Q24H [facility] Rx#:[id number] Oral 400 Output: Urine 650 - Constitutional General appearance: Present: cooperative, no acute distress - Respiratory Respiratory: bilateral: CTA - Cardiovascular Rhythm: regular - Gastrointestinal General gastrointestinal: Present: normal bowel sounds, soft Localized gastrointestinal: surgical scar: diffuse (Incisions intact clean and dry with minimal ecchymosis) - Labs CBC & Chem 7: 08/27/18 07:41 08/27/18 07:41 Assessment and Plan (1) Adenoma of colon Current Visit: Yes Status: Acute Code(s): D12.6 - BENIGN NEOPLASM OF COLON, UNSPECIFIED SNOMED Code(s): 648954001 (2) Neoplasm of uncertain behavior of colon Current Visit: Yes Status: Acute Code(s): D37.4 - NEOPLASM OF UNCERTAIN BEHAVIOR OF COLON SNOMED Code(s): 43243323 Plan: Monitor her today. If she has no further diarrhea she would be surgically stable for discharge. Discharge instructions were discussed with her. If she is not feeling well we'll keep her till tomorrow.
== END 2018-08-28 13:33 | disposition home or self-care (01) | DRG 331 ==
LOC: 2ORMAIN 11:29 → 4SSUR 17:10
PROVIDERS: ADMIT Surgery; ATTEND Surgery
PROC: 8E0W8CZ Robotic Assisted Procedure of Trunk Region, Via Natural or Artificial Opening Endoscopic (ICD-10-PCS; principal; 2018-08-26 13:15)
PROC: 0DTF0ZZ Resection of Right Large Intestine, Open Approach (ICD-10-PCS; principal; 2018-08-26 13:15)
DX: D12.2 Benign neoplasm of ascending colon (principal); E03.9 Hypothyroidism, unspecified; Z79.890 Hormone replacement therapy; E78.5 Hyperlipidemia, unspecified; Z79.82 Long term (current) use of aspirin; Z79.899 Other long term (current) drug therapy; G25.81 Restless legs syndrome; R19.7 Diarrhea, unspecified
CPT/HCPCS: 80048; 85025; 86850; 86900; 86901; 88309

== ENCOUNTER → 2020-03-08 | Outpatient (CLI) | payer MEDICAID | END | disposition home or self-care (01) | LOC: LABWHC1 15:52 | PROVIDERS: ATTEND Internal Medicine | DX: R05 Cough (principal); R50.9 Fever, unspecified | CPT/HCPCS: U0003; C9803 ==

== ENCOUNTER 2020-03-11 09:10 | Emergency (ER) | payer MEDICAID ==
[2020-03-11 09:16] VITALS: RESP 18; TEMP 99.1
[2020-03-11] MEDS ORDERED: SODIUM CHLORIDE 0.9% 500 ML 500 ML IV STA (09:45)
[2020-03-11] MEDS ORDERED: ACETAMINOPHEN TAB 500 MG TAB PO STA (09:45)
--- NOTE | 2020-03-11 09:51 | ED ---
URI HPI - General Chief Complaint: Upper Respiratory Infection Stated Complaint: cold and chest pain Time Seen by Provider: 03/11/20 09:29 Source: patient, RN notes reviewed Mode of arrival: wheelchair Limitations: no limitations - History of Present Illness Initial Comments: This is a 54-year-old female who does state that she has exposure to Covid 19 through her family members and who does states she had a test done 2 days ago with no results back yet who presents with complaints of frontal headache chills body aches sinus drainage with yellow discharge some back pain chest pain body aches no fever she generally does not feel well. She also states she has loss of taste and smell. No other complaints at this time MD Complaint: cough, sore throat, rhinorrhea, nasal congestion, sinus pain, other - Related Data Home Medications Medication Instructions Recorded Confirmed Gabapentin [Neurontin] 100 mg PO BID 08/17/15 03/11/20 Levothyroxine Sodium [Synthroid] 137 mcg PO QAM 08/17/15 03/11/20 Atorvastatin [Lipitor] 10 mg PO HS 07/05/17 03/11/20 Aspirin 81 mg PO HS 08/13/17 03/11/20 Ferrous Sulfate [Iron (65 MG 325 mg PO DAILY 08/13/17 03/11/20 Elemental)] Baclofen [Lioresal] 10 mg PO HS 08/21/18 03/11/20 Multivitamin [Multivitamins Adult 1 tab PO DAILY 08/21/18 03/11/20 Gummies] Metoprolol Succinate (ER) [Toprol 25 mg PO DAILY 03/11/20 03/11/20 Xl] Previous Rx's Medication Instructions Recorded Azithromycin [Zithromax Tri-Bartolo (3 500 mg PO DAILY 3 Days #3 tab 03/11/20 tabs)] Allergies Allergy/AdvReac Type Severity Reaction Status Date / Time No Known Allergies Allergy Verified 03/11/20 09:51 Review of Systems ROS Statement: Those systems with pertinent positive or pertinent negative responses have been documented in the HPI. ROS Other: All systems not noted in ROS Statement are negative. Past Medical History Past Medical History: Hyperlipidemia, Osteoarthritis (OA), Thyroid Disorder Additional Past Medical History / Comment(s): RLS., anemia, occasional "racing heart" ., states mass in colon . History of Any Multi-Drug Resistant Organisms: None Reported Past Surgical History: Heart Catheterization, Hysterectomy Additional Past Surgical History / Comment(s): partial thyroidectomy, fatty tumor on neck. Past Anesthesia/Blood Transfusion Reactions: Postoperative Nausea & Vomiting (PONV) Past Psychological History: No Psychological Hx Reported Smoking Status: Never smoker Past Alcohol Use History: None Reported Past Drug Use History: None Reported - Past Family History Father Family Medical History: Cancer, Myocardial Infarction ([place]) Additional Family Medical History / Comment(s): Bladder CA, from [place]-CABG Mother Family Medical History: Diabetes Mellitus, Hypertension Additional Family Medical History / Comment(s): [place] Son(s) Family Medical History: Diabetes Mellitus Sister(s) Family Medical History: Diabetes Mellitus, Hyperlipidemia General Exam - General Exam Comments Initial Comments: This is a well-developed well-nourished awake alert oriented 3 female Limitations: no limitations General appearance: alert, anxious Head exam: Present: atraumatic, normocephalic, normal inspection Eye exam: Present: normal appearance, PERRL, EOMI. Absent: scleral icterus, conjunctival injection, periorbital swelling ENT exam: Present: mucous membranes dry, other (Dull tympanic membranes some tenderness to percussion over the frontal and ethmoid sinus region. No tonsillar exudates minimal erythema to the posterior pharynx) Neck exam: Present: normal inspection. Absent: tenderness, meningismus, lymphadenopathy Respiratory exam: Present: normal lung sounds bilaterally. Absent: respiratory distress, wheezes, rales, rhonchi, stridor Cardiovascular Exam: Present: regular rate, normal rhythm, normal heart sounds. Absent: systolic murmur, diastolic murmur, rubs, gallop, clicks GI/Abdominal exam: Present: soft, normal bowel sounds. Absent: distended, tenderness, guarding, rebound, rigid Extremities exam: Present: normal inspection, full ROM, normal capillary refill. Absent: tenderness, pedal edema, joint swelling, calf tenderness Back exam: Present: normal inspection Neurological exam: Present: alert, oriented X3, CN II-XII intact Psychiatric exam: Present: normal affect, normal mood Skin exam: Present: warm, dry, intact, normal color. Absent: rash Course Vital Signs 03/11/20 03/11/20 03/11/20 09:14 10:16 11:00 Temperature 99.1 F Pulse Rate 90 88 75 Respiratory 18 18 18 Rate Blood Pressure 127/88 120/66 114/73 O2 Sat by Pulse 97 96 98 Oximetry 03/11/20 12:00 Temperature Pulse Rate 72 Respiratory 18 Rate Blood Pressure 122/78 O2 Sat by Pulse 98 Oximetry Medical Decision Making - Medical Decision Making I did have a long discussion with patient regarding the findings patient at this time does not benefit from hospitalization. She'll be discharged home on appropriate recommendations for current outpatient treatment. Patient is requesting antibiotics she will get a dose of Zithromax. This at this time does not seem unreasonable she does have a lot of sinus congestion and we did discuss [id number] Mucinex. He also did discuss return parameters. - Lab Data Result diagrams: 03/11/20 10:16 03/11/20 10:16 Lab Results 03/11/20 03/11/20 03/11/20 Range/Units 10:16 10:16 10:16 WBC 4.4 (3.8-10.6) k/uL RBC 4.51 (3.80-5.40) m/uL Hgb 13.5 (11.4-16.0) gm/dL Hct 39.3 (34.0-46.0) % MCV 87.1 (80.0-100.0) fL MCH 29.9 (25.0-35.0) pg MCHC 34.4 (31.0-37.0) g/dL RDW 12.8 (11.5-15.5) % Plt Count 166 (150-450) k/uL MPV 7.9 Neutrophils % 55 % Lymphocytes % 32 % Monocytes % 8 % Eosinophils % 0 % Basophils % 3 % Neutrophils # 2.4 (1.3-7.7) k/uL Lymphocytes # 1.4 (1.0-4.8) k/uL Monocytes # 0.3 (0-1.0) k/uL Eosinophils # 0.0 (0-0.7) k/uL Basophils # 0.1 (0-0.2) k/uL PT (9.0-12.0) sec INR (<1.2) APTT (22.0-30.0) sec D-Dimer (<0.60) mg/L FEU Sodium 139 (137-145) mmol/L Potassium 4.4 (3.5-5.1) mmol/L Chloride 107 (98-107) mmol/L Carbon Dioxide 23 (22-30) mmol/L Anion Gap 9 mmol/L BUN 12 (7-17) mg/dL Creatinine 0.61 (0.52-1.04) mg/dL Est GFR (CKD-EPI)AfAm >90 (>60 ml/min/1.73 sqM) Est GFR (CKD-EPI)NonAf >90 (>60 ml/min/1.73 sqM) Glucose 107 H (74-99) mg/dL Plasma Lactic Acid Faizan (0.7-2.0) mmol/L Calcium 8.8 (8.4-10.2) mg/dL Magnesium 1.9 (1.6-2.3) mg/dL Ferritin 239.0 (10.0-291.0) ng/mL Total Bilirubin 0.6 (0.2-1.3) mg/dL AST 65 H (14-36) U/L ALT 71 H (4-34) U/L Alkaline Phosphatase 117 (38-126) U/L Lactate Dehydrogenase 674 H (313-618) U/L Creatine Kinase 167 H (30-135) U/L C-Reactive Protein 23.0 H (<10.0) mg/L Total Protein 7.3 (6.3-8.2) g/dL Albumin 4.4 (3.5-5.0) g/dL Coronavirus (PCR) (Not Detectd) Influenza Type A RNA Not Detected (Not Detectd) Influenza Type B (PCR) Not Detected (Not Detectd) 03/11/20 03/11/20 03/11/20 Range/Units 10:28 10:28 11:23 WBC (3.8-10.6) k/uL RBC (3.80-5.40) m/uL Hgb (11.4-16.0) gm/dL Hct (34.0-46.0) % MCV (80.0-100.0) fL MCH (25.0-35.0) pg MCHC (31.0-37.0) g/dL RDW (11.5-15.5) % Plt Count (150-450) k/uL MPV Neutrophils % % Lymphocytes % % Monocytes % % Eosinophils % % Basophils % % Neutrophils # (1.3-7.7) k/uL Lymphocytes # (1.0-4.8) k/uL Monocytes # (0-1.0) k/uL Eosinophils # (0-0.7) k/uL Basophils # (0-0.2) k/uL PT 9.4 (9.0-12.0) sec INR 0.9 (<1.2) APTT 23.8 (22.0-30.0) sec D-Dimer 0.99 H (<0.60) mg/L FEU Sodium (137-145) mmol/L Potassium (3.5-5.1) mmol/L Chloride (98-107) mmol/L Carbon Dioxide (22-30) mmol/L Anion Gap mmol/L BUN (7-17) mg/dL Creatinine (0.52-1.04) mg/dL Est GFR (CKD-EPI)AfAm (>60 ml/min/1.73 sqM) Est GFR (CKD-EPI)NonAf (>60 ml/min/1.73 sqM) Glucose (74-99) mg/dL Plasma Lactic Acid Faizan 1.7 (0.7-2.0) mmol/L Calcium (8.4-10.2) mg/dL Magnesium (1.6-2.3) mg/dL Ferritin (10.0-291.0) ng/mL Total Bilirubin (0.2-1.3) mg/dL AST (14-36) U/L ALT (4-34) U/L Alkaline Phosphatase (38-126) U/L Lactate Dehydrogenase (313-618) U/L Creatine Kinase (30-135) U/L C-Reactive Protein (<10.0) mg/L Total Protein (6.3-8.2) g/dL Albumin (3.5-5.0) g/dL Coronavirus (PCR) Detected A (Not Detectd) Influenza Type A RNA (Not Detectd) Influenza Type B (PCR) (Not Detectd) - EKG Data -: EKG Interpreted by Me EKG shows normal: sinus rhythm (Sinus rhythm of 87 appear interval 136 QRS duration 12 QT since QTC 384/462 incomplete right bundle-branch block) - Radiology Data Radiology results: report reviewed (I did review the imaging and reports no evidence of DVT or PE. There is some evidence of scattered limited infiltrates basilar lungs.), image reviewed Disposition Clinical Impression: COVID-19, Viral syndrome, Pneumonitis Disposition: HOME SELF-CARE Condition: Good Instructions (If sedation given, give patient instructions): Upper Respiratory Infection (ED), Viral Syndrome (ED) Additional Instructions: Oral fluids, vitamin C, zinc, other medications discussed Prescriptions: Azithromycin [Zithromax Tri-Bartolo (3 tabs)] 500 mg PO DAILY 3 Days #3 tab Is patient prescribed a controlled substance at d/c from ED?: No Referrals: Tamela Ngo MD [Primary Care Provider] - 1-2 days
[2020-03-11 10:25] LABS: Basophils # (A) 0.1 k/uL (0-0.2); Basophils % (A) 3 %; Eosinophils % (A) 0 %; HCT 39.3 % (34.0-46.0); HGB 13.5 gm/dL (11.4-16.0); Lymphocytes # (A) 1.4 k/uL (1.0-4.8); Lymphocytes % (A) 32 %; MCH 29.9 pg (25.0-35.0); MCHC 34.4 g/dL (31.0-37.0); MCV 87.1 fL (80.0-100.0); Mean Platelet Volume 7.9; Monocytes # (A) 0.3 k/uL (0-1.0); Monocytes % (A) 8 %; Neutrophils # (A) 2.4 k/uL (1.3-7.7); Neutrophils % (A) 55 %; Platelet Count 166 k/uL (150-450); RBC 4.51 m/uL (3.80-5.40); RDW 12.8 % (11.5-15.5); WBC 4.4 k/uL (3.8-10.6)
[2020-03-11 10:39] LABS: ALT 71 U/L (4-34); AST 65 U/L (14-36); African American GFR (CKD) >90 (>60 ml/min/1.73 sqM); Albumin 4.4 g/dL (3.5-5.0); Alkaline Phosphatase 117 U/L (38-126); Anion Gap 9 mmol/L; Blood Urea Nitrogen 12 mg/dL (7-17); Calcium 8.8 mg/dL (8.4-10.2); Carbon Dioxide 23 mmol/L (22-30); Chloride 107 mmol/L (98-107); Creatine Kinase 167 U/L (30-135); Glucose 107 mg/dL (74-99); LDH 674 U/L (313-618); Magnesium 1.9 mg/dL (1.6-2.3); Non-African American GFR(CKD) >90 (>60 ml/min/1.73 sqM); Potassium 4.4 mmol/L (3.5-5.1); Sodium 139 mmol/L (137-145); Total Bilirubin 0.6 mg/dL (0.2-1.3); Total Protein 7.3 g/dL (6.3-8.2)
--- NOTE | 2020-03-11 10:55 | XR ---
EXAMINATION TYPE: XR chest 1V portable DATE OF EXAM: 03/11/2020 CLINICAL HISTORY: Suspected COVID-19 pneumonia. TECHNIQUE: Portable frontal view of the chest. COMPARISON: 07/05/[address] abdomen pelvis 07/22/2018. FINDINGS: The cardiomediastinal silhouette is within normal limits for size. Pulmonary vasculature i s normal. There is a 1.4 cm round nodular opacity over the right costophrenic angle otherwise there i s no focal air space opacity, pleural effusion, or pneumothorax seen. The osseous structures are inta ct. IMPRESSION: 1. 1.4 cm round nodular opacity over the right costophrenic angle. Findings may represent overlapping soft tissue density such as nipple shadow, or pulmonary nodule. Recommend repeat chest radiograph wi th nipple marker or CT chest for further characterization. 2. Otherwise no acute cardiopulmonary process.
[2020-03-11 11:33] LABS: INR 0.9 (<1.2); Partial Thromboplastin Time 23.8 sec (22.0-30.0); Prothrombin Time 9.4 sec (9.0-12.0)
[2020-03-11 11:40] LABS: D-Dimer 0.99 mg/L FEU (<0.60)
--- NOTE | 2020-03-11 12:06 | CT ---
EXAMINATION TYPE: CT angio chest DATE OF EXAM: 03/11/2020 COMPARISON: None HISTORY: Elevated d-dimer, cough and warm feeling CT DLP: 317.25 mGycm CONTRAST: CT chest with contrast and 3D reconstruction with MIP imaging is performed with IV Contrast, patient injected with 100. wasted 39 ml mL of Isovue 370. Contrast-enhanced CT of the chest was performed through the course of the pulmonary arteries with mic g and mediastinal window settings submitted. 3D reconstruction with MIP imaging was also performed. PULMONARY ARTERIES: The pulmonary arteries and their major tributaries are patent. I do not see lolly dence for sizable filling defect to suggest pulmonary embolic process. LUNGS: There are a few scattered basilar focal infiltrate seen with areas of groundglass density note d as well. Correlate for underlying inflammatory process. Mild basilar atelectasis. Tiny effusions no jennifer. MEDIASTINUM: Thoracic aorta is of normal caliber,however, evaluation is limited given timing of the contrast bolus. If there is concern for thoracic aortic pathology consider DEZ. Correlate clinicall y . The heart is not enlarged. No evidence for mediastinal mass. No mediastinal lymph nodes greater than 1cm. HILAR STRUCTURES: No evidence for mass. No hilar lymph nodes greater than 1 cm. UPPER ABDOMEN: No significant abnormality is seen. IMPRESSION: 1. No evidence for Pulmonary embolism at this time. 2. Correlate for mild developing pneumonia.
[2020-03-11] MEDS ORDERED: DEXAMETHASONE SOD PHOSPHATE 10 MG/ML 1 ML VIAL IV STA (13:09)
--- NOTE | 2020-03-11 13:58 | US ---
EXAMINATION TYPE: US venous doppler duplex LE DATE OF EXAM: 03/11/2020 1:46 PM COMPARISON: NONE CLINICAL HISTORY: DVT suspected. Bilateral lower leg cramping for 2 weeks SIDE PERFORMED: bilateral TECHNIQUE: The lower extremity deep venous system is examined utilizing real time linear array sonog wanda with graded compression, doppler sonography and color-flow sonography. VESSELS IMAGED: Common Femoral Vein Deep Femoral Vein Greater Saphenous Vein * Femoral Vein Popliteal Vein Small Saphenous Vein * Proximal Calf Veins (* superficial vessels) Right Leg: Normal flow, compressibility, and vascular waveforms. No evidence of DVT. Left Leg: Normal flow, compressibility, and vascular waveforms. No evidence of DVT. IMPRESSION: No deep venous thrombosis of the bilateral lower extremities.
[2020-03-11] MEDS ORDERED: AZITHROMYCIN 500 MG TAB PO STA (14:23)
[2020-03-11 14:49] VITALS: BP 130/56; PULSE 75
== END 2020-03-11 14:52 | disposition home or self-care (01) ==
LOC: EC 09:10
DX: U07.1 COVID-19 (principal); J12.89 Other viral pneumonia; B34.9 Viral infection, unspecified; E07.9 Disorder of thyroid, unspecified; E78.5 Hyperlipidemia, unspecified; Z79.82 Long term (current) use of aspirin; Z79.890 Hormone replacement therapy; Z79.899 Other long term (current) drug therapy
CPT/HCPCS: 36415; 71045; 71275; 80053; 82550; 82728; 83605; 83615; 83735; 84145; 85025; 85379; 85610; 85730; 86140; 87040; 87502; 87635; 93005; 93970; 96374; 99285

== ENCOUNTER 2020-03-14 11:12 | Inpatient (IN) | payer MEDICAID ==
[2020-03-14] MEDS ORDERED: ALBUTEROL HFA INHALER INHALATION STA (12:01)
[2020-03-14] MEDS ORDERED: ONDANSETRON 4 MG/2 ML VIAL IVP STA (12:09)
[2020-03-14] MEDS ORDERED: ACETAMINOPHEN TAB 500 MG TAB PO STA (12:09)
[2020-03-14] MEDS ORDERED: SODIUM CHLORIDE 0.9% 500 ML 500 ML IV STA (12:10)
[2020-03-14] MEDS ORDERED: SODIUM CHLORIDE 0.9% 1,000 ML IV STA (12:10)
--- NOTE | 2020-03-14 12:14 | ED ---
General Adult HPI - General Source: patient, RN notes reviewed Mode of arrival: ambulatory Limitations: no limitations <Itz Kumar - Last Filed: 03/14/20 14:55> <Wesly Loja - Last Filed: 03/14/20 16:28> - General Chief complaint: Recheck/Abnormal Lab/Rx Stated complaint: revisit - +COVID Time Seen by Provider: 03/14/20 11:25 - History of Present Illness Initial comments: Patient is a pleasant 54-year-old female presenting to the emergency Department with complaints of fatigue. Patient states symptoms have been present for close to week. Patient feels achy all over. Patient is having fever and chills. Patient was tested positive for covid 3 days ago. Patient does have some mild shortness of breath. Patient does have dry cough. Patient is having diarrhea. Patient has nausea and decreased oral intake. No vomiting. (Itz Kumar) - Related Data Home Medications Medication Instructions Recorded Confirmed Gabapentin [Neurontin] 100 mg PO BID 08/17/15 03/14/20 Levothyroxine Sodium [Synthroid] 137 mcg PO QAM 08/17/15 03/14/20 Atorvastatin [Lipitor] 10 mg PO HS 07/05/17 03/14/20 Aspirin 81 mg PO HS 08/13/17 03/14/20 Ferrous Sulfate [Iron (65 MG 325 mg PO DAILY 08/13/17 03/14/20 Elemental)] Baclofen [Lioresal] 10 mg PO HS 08/21/18 03/14/20 Multivitamin [Multivitamins Adult 1 tab PO DAILY 08/21/18 03/14/20 Gummies] Metoprolol Succinate (ER) [Toprol 25 mg PO DAILY 03/11/20 03/14/20 Xl] Azithromycin [Zithromax Tri-Bartolo (3 500 mg PO DIRECTED 03/14/20 03/14/20 tabs)] Allergies Allergy/AdvReac Type Severity Reaction Status Date / Time No Known Allergies Allergy Verified 03/14/20 12:44 Review of Systems ROS Other: All systems not noted in ROS Statement are negative. Constitutional: Reports: fever, chills Eyes: Denies: eye pain ENT: Denies: ear pain Respiratory: Reports: as per HPI, cough Cardiovascular: Denies: chest pain Endocrine: Reports: fatigue Gastrointestinal: Reports: nausea, diarrhea. Denies: abdominal pain, vomiting Genitourinary: Denies: dysuria Musculoskeletal: Denies: back pain Skin: Denies: rash Neurological: Denies: weakness <Itz Kumar - Last Filed: 03/14/20 14:55> ROS Other: All systems not noted in ROS Statement are negative. <Wesly Loja - Last Filed: 03/14/20 16:28> ROS Statement: Those systems with pertinent positive or pertinent negative responses have been documented in the HPI. Past Medical History Past Medical History: Hyperlipidemia, Osteoarthritis (OA), Thyroid Disorder Additional Past Medical History / Comment(s): RLS., anemia, occasional "racing heart" ., states mass in colon . History of Any Multi-Drug Resistant Organisms: None Reported Past Surgical History: Heart Catheterization, Hysterectomy Additional Past Surgical History / Comment(s): partial thyroidectomy, fatty tumor on neck. Past Anesthesia/Blood Transfusion Reactions: Postoperative Nausea & Vomiting (PONV) Past Psychological History: No Psychological Hx Reported Smoking Status: Never smoker Past Alcohol Use History: None Reported Past Drug Use History: None Reported - Past Family History Father Family Medical History: Cancer, Myocardial Infarction ([place]) Additional Family Medical History / Comment(s): Bladder CA, from [place]-CAB[place] Mother Family Medical History: Diabetes Mellitus, Hypertension Additional Family Medical History / Comment(s): [place] Son(s) Family Medical History: Diabetes Mellitus Sister(s) Family Medical History: Diabetes Mellitus, Hyperlipidemia <Itz Kumar - Last Filed: 03/14/20 14:55> General Exam Limitations: no limitations General appearance: alert, in no apparent distress Head exam: Present: normocephalic Eye exam: Present: normal appearance Neck exam: Present: normal inspection Respiratory exam: Present: normal lung sounds bilaterally Cardiovascular Exam: Present: normal rhythm, tachycardia GI/Abdominal exam: Present: soft. Absent: tenderness Extremities exam: Present: normal inspection Neurological exam: Present: alert Psychiatric exam: Present: normal affect, normal mood Skin exam: Present: normal color <Itz Kumar - Last Filed: 03/14/20 14:55> Course <Itz Kumar - Last Filed: 03/14/20 14:55> <Wesly Loja - Last Filed: 03/14/20 16:28> Vital Signs 03/14/20 03/14/20 11:32 14:37 Temperature 98.9 F Pulse Rate 111 H 105 H Respiratory 18 18 Rate Blood Pressure 116/78 124/84 O2 Sat by Pulse 96 94 L Oximetry - Reevaluation(s) Reevaluation #1: 03/14/20 14:[address] Loja At shift change (Itz Kumar) Reevaluation #2: 03/14/20 16:27 Medical records reviewed (Wesly Loja) Reevaluation #3: 03/14/20 16:28 Patient does not feel improved here in the ER (Wesly Loja) - Consultations Consultation #1: Spoke with EM and agreeable to admit (Wesly Loja) EKG Findings - EKG Comments: EKG Findings:: Sinus tachycardia 108. WV 174. QRS 88. QT 354. QTC 474. Normal axis. Normal QRS. No acute ST change. <Itz Kumar - Last Filed: 03/14/20 14:55> Medical Decision Making - Lab Data Result diagrams: 03/14/20 14:38 - Radiology Data Radiology results: image reviewed (chest x-ray does show mild left lower lobe infiltrate changes) <Itz Kumar - Last Filed: 03/14/20 14:55> - Lab Data Result diagrams: 03/14/20 14:38 03/14/20 14:38 - Radiology Data Radiology results: report reviewed (Chest x-ray shows bilateral infiltrate), image reviewed <Wesly Loja - Last Filed: 03/14/20 16:28> - Medical Decision Making 54 female to the ER for evaluation, patient is a known coronavirus patient coming in for increasing shortness of breath, patient will be admitted for treatment and evaluation regarding coronavirus (Wesly Loja) - Lab Data Lab Results 03/14/20 03/14/20 03/14/20 Range/Units 14:38 14:38 14:38 WBC 4.8 (3.8-10.6) k/uL RBC 4.52 (3.80-5.40) m/uL Hgb 13.3 (11.4-16.0) gm/dL Hct 39.2 (34.0-46.0) % MCV 86.7 (80.0-100.0) fL MCH 29.4 (25.0-35.0) pg MCHC 33.9 (31.0-37.0) g/dL RDW 12.7 (11.5-15.5) % Plt Count 177 (150-450) k/uL MPV 7.9 Neutrophils % 76 % Lymphocytes % 16 % Monocytes % 6 % Eosinophils % 0 % Basophils % 0 % Neutrophils # 3.6 (1.3-7.7) k/uL Lymphocytes # 0.8 L (1.0-4.8) k/uL Monocytes # 0.3 (0-1.0) k/uL Eosinophils # 0.0 (0-0.7) k/uL Basophils # 0.0 (0-0.2) k/uL PT 9.3 (9.0-12.0) sec INR 0.9 (<1.2) APTT 22.5 (22.0-30.0) sec Sodium 135 L (137-145) mmol/L Potassium 3.8 (3.5-5.1) mmol/L Chloride 103 (98-107) mmol/L Carbon Dioxide 26 (22-30) mmol/L Anion Gap 6 mmol/L BUN 8 (7-17) mg/dL Creatinine 0.60 (0.52-1.04) mg/dL Est GFR (CKD-EPI)AfAm >90 (>60 ml/min/1.73 sqM) Est GFR (CKD-EPI)NonAf >90 (>60 ml/min/1.73 sqM) Glucose 110 H (74-99) mg/dL Plasma Lactic Acid Faizan (0.7-2.0) mmol/L Calcium 8.8 (8.4-10.2) mg/dL Magnesium 2.1 (1.6-2.3) mg/dL Total Bilirubin 0.5 (0.2-1.3) mg/dL AST 53 H (14-36) U/L ALT 54 H (4-34) U/L Alkaline Phosphatase 121 (38-126) U/L Lactate Dehydrogenase 623 H (313-618) U/L C-Reactive Protein 49.1 H (<10.0) mg/L Total Protein 6.8 (6.3-8.2) g/dL Albumin 4.0 (3.5-5.0) g/dL 03/14/ Range/Units 14:38 WBC (3.8-10.6) k/uL RBC (3.80-5.40) m/uL Hgb (11.4-16.0) gm/dL Hct (34.0-46.0) % MCV (80.0-100.0) fL MCH (25.0-35.0) pg MCHC (31.0-37.0) g/dL RDW (11.5-15.5) % Plt Count (150-450) k/uL MPV Neutrophils % % Lymphocytes % % Monocytes % % Eosinophils % % Basophils % % Neutrophils # (1.3-7.7) k/uL Lymphocytes # (1.0-4.8) k/uL Monocytes # (0-1.0) k/uL Eosinophils # (0-0.7) k/uL Basophils # (0-0.2) k/uL PT (9.0-12.0) sec INR (<1.2) APTT (22.0-30.0) sec Sodium (137-145) mmol/L Potassium (3.5-5.1) mmol/L Chloride (98-107) mmol/L Carbon Dioxide (22-30) mmol/L Anion Gap mmol/L BUN (7-17) mg/dL Creatinine (0.52-1.04) mg/dL Est GFR (CKD-EPI)AfAm (>60 ml/min/1.73 sqM) Est GFR (CKD-EPI)NonAf (>60 ml/min/1.73 sqM) Glucose (74-99) mg/dL Plasma Lactic Acid Afizan 1.2 (0.7-2.0) mmol/L Calcium (8.4-10.2) mg/dL Magnesium (1.6-2.3) mg/dL Total Bilirubin (0.2-1.3) mg/dL AST (14-36) U/L ALT (4-34) U/L Alkaline Phosphatase (38-126) U/L Lactate Dehydrogenase (313-618) U/L C-Reactive Protein (<10.0) mg/L Total Protein (6.3-8.2) g/dL Albumin (3.5-5.0) g/dL Disposition <Kumar,Itz - Last Filed: 03/14/20 14:55> Is patient prescribed a controlled substance at d/c from ED?: No <Wesly oLja - Last Filed: 03/14/20 16:28> Clinical Impression: COVID-19, Pneumonitis Disposition: ADMITTED IP TO THIS HOSP Condition: Fair Referrals: Tamela Ngo MD [Primary Care Provider] - 1-2 days
--- NOTE | 2020-03-14 12:35 | XR ---
EXAMINATION TYPE: XR chest 1V portable DATE OF EXAM: 03/14/2020 COMPARISON: 03/11/2020 HISTORY: Shortness of breath TECHNIQUE: Single frontal view of the chest is obtained. FINDINGS: There is bilateral lower lobe subsegmental infiltrate. Pleural thickening versus tiny effu reyna. No sizable pneumothorax. Heart size normal. No overt failure. Rounded nodule seen on the prior exam not as well-seen on today's exam. IMPRESSION: 1. Bilateral lower lobe infiltrate correlate for pneumonia.
[2020-03-14] MEDS ORDERED: ONDANSETRON ODT 4 MG TAB PO STA (13:16)
[2020-03-14] MEDS ORDERED: DICYCLOMINE 10 MG/ML 2 ML AMP IM STA (13:17)
[2020-03-14 14:47] LABS: Basophils % (A) 0 %; Eosinophils % (A) 0 %; HCT 39.2 % (34.0-46.0); HGB 13.3 gm/dL (11.4-16.0); Lymphocytes # (A) 0.8 k/uL (1.0-4.8); Lymphocytes % (A) 16 %; MCH 29.4 pg (25.0-35.0); MCHC 33.9 g/dL (31.0-37.0); MCV 86.7 fL (80.0-100.0); Mean Platelet Volume 7.9; Monocytes # (A) 0.3 k/uL (0-1.0); Monocytes % (A) 6 %; Neutrophils # (A) 3.6 k/uL (1.3-7.7); Neutrophils % (A) 76 %; Platelet Count 177 k/uL (150-450); RBC 4.52 m/uL (3.80-5.40); RDW 12.7 % (11.5-15.5); WBC 4.8 k/uL (3.8-10.6)
[2020-03-14 14:58] LABS: ALT 54 U/L (4-34); AST 53 U/L (14-36); African American GFR (CKD) >90 (>60 ml/min/1.73 sqM); Alkaline Phosphatase 121 U/L (38-126); Anion Gap 6 mmol/L; Blood Urea Nitrogen 8 mg/dL (7-17); C Reactive Protein 49.1 mg/L (<10.0); Calcium 8.8 mg/dL (8.4-10.2); Carbon Dioxide 26 mmol/L (22-30); Chloride 103 mmol/L (98-107); Glucose 110 mg/dL (74-99); INR 0.9 (<1.2); LDH 623 U/L (313-618); Magnesium 2.1 mg/dL (1.6-2.3); Non-African American GFR(CKD) >90 (>60 ml/min/1.73 sqM); Potassium 3.8 mmol/L (3.5-5.1); Sodium 135 mmol/L (137-145); Total Bilirubin 0.5 mg/dL (0.2-1.3); Total Protein 6.8 g/dL (6.3-8.2)
[2020-03-14 14:59] LABS: Partial Thromboplastin Time 22.5 sec (22.0-30.0); Prothrombin Time 9.3 sec (9.0-12.0)
[2020-03-14] MEDS ORDERED: PNEUMONIA PROTOCOL UTILIZED 1 EACH MISC PO PRN (16:26)
--- NOTE | 2020-03-14 16:59 | CT ---
CT CHEST FOR PULMONARY EMBOLISM. EXAMINATION TYPE: CT angio chest DATE OF EXAM: 03/14/2020 INDICATION: Shortness of breath. CT DLP: 275.6 mGycm, Automated exposure control for dose reduction was used. CONTRAST: Patient injected with 100 mL of Isovue 370. COMPARISON: TECHNIQUE: CT of the chest is performed on a spiral scan at 2 mm thick sections. Study is performed with intravenous contrast timed for evaluation for pulmonary embolism. This will limit additional po rtions of the evaluation. 3-D MIP images reconstructed by the technologist are reviewed on the compu ter in the coronal and sagittal planes. FINDINGS: Right lobe thyroid not identified. No persistent filling defects are evident to suggest an acute pulmonary embolism. No mediastinal or hilar adenopathy enlarged by CT criteria is evident. The ascending aorta diameter at the level of the main pulmonary artery is 3.1 cm. The main pulmonary artery diameter at the bifur cation is 3.3 cm. Correlate for pulmonary hypertension. No right heart strain. Minimal pleural effusions are present. Small focal infiltrate right upper lobe measuring 1.4 cm. Seri es 406 image 39. Follow-up is recommended. Some mild scattered tracer within the periphery of the mic gs are bases and dependent portions more likely related to atelectasis. Atypical pneumonia should be considered. There is a small focal consolidation posterior lateral right lung base. Atelectasis or pneumonia shou ld be considered. Series [address] section through the upper abdomen. There is moderate fatty infiltration liver. IMPRESSIONS: 1. No acute pulmonary embolism. 2. Correlate for pulmonary hypertension. 3. Minimal bilateral pleural effusions. 4. Scattered infiltrates. Correlate for atelectasis or atypical pneumonia. 5. Small focal infiltrate may be pneumonia in the right lateral lung base. 6. Small nodule or infiltrate in the periphery of the right lateral upper lung field could be atelect asis. Follow-up is recommended.
[2020-03-14] MEDS ORDERED: TEMAZEPAM 15 MG CAP PO PRN (17:39)
[2020-03-14] MEDS ORDERED: ALPRAZolam 0.25 MG TAB PO PRN (17:39)
[2020-03-14] MEDS ORDERED: HYDROcodone/APAP 5-325MG 1 EACH TAB PO PRN (17:39)
[2020-03-14] MEDS ORDERED: AZITHROMYCIN 500 MG TAB PO SCH (17:45)
[2020-03-14] MEDS: SODIUM CHLORIDE 0.9% 1,000 ML IV SCH (18:31)
[2020-03-14] MEDS: CHOLECALCIFEROL 1,000 UNIT TAB PO SCH (18:32)
[2020-03-14] MEDS: ZINC SULFATE 220 MG CAP PO SCH (18:32)
[2020-03-14] MEDS: dexAMETHasone 2 MG TAB PO SCH (18:32)
--- NOTE | 2020-03-14 21:27 | HP ---
HISTORY AND PHYSICAL CHIEF COMPLAINT: Headache and fever and shortness of breath and cough. HISTORY OF PRESENT ILLNESS: This 54-year-old woman with a past medical history of hyperlipidemia, DJD, hypothyroidism, history of restless leg syndrome, history of occasional racing heart being followed by Dr. Ngo in the outpatient setting, was not feeling well over the past one week. The patient had shortness of breath with cough and fever and the patient also had some chills. The patient had test for Covid 19 positive 3 days ago. The patient admitted for further evaluation and treatment. Chest x-ray showed bilateral pneumonia which was confirmed by CT angio. There was no evidence of pulmonary embolism. The patient also had some diarrhea which is going on for the last one week. Patient has some abdominal discomfort and cough and cramps also. PAST MEDICAL HISTORY: History hyperlipidemia, history of DJD, history of hypothyroidism, restless leg syndrome, history of cardiac catheterization. MEDICATIONS: Prior to admission: Home medications are: Multivitamins, Toprol-XL, Synthroid, Neurontin, iron, Lioresal. Zithromax. Lipitor. Aspirin. ALLERGIES: None. FAMILY HISTORY: Family history of myocardial infarction, bladder cancer, CABG. SOCIAL HISTORY: No history of smoking. No history of alcohol. REVIEW OF SYSTEMS: ENT: No diminished vision. No diminished hearing. CARDIOVASCULAR: No angina or palpitations. RESPIRATORY: No cough or hemoptysis. GI as mentioned earlier. : No dysuria. NERVOUS SYSTEM: No numbness, weakness. ALLERGY/IMMUNOLOGY: No asthma or hayfever. MUSCULOSKELETAL as mentioned earlier. HEMATOLOGY/ONCOLOGY: No history of anemia. ENDOCRINE: No history of diabetes or hypothyroidism. CONSTITUTIONAL: As mentioned earlier. DERMATOLOGY: Negative. RHEUMATOLOGY: Negative. PSYCHIATRIC: As mentioned earlier. PHYSICAL EXAMINATION: Alert and oriented times three. Pulse is 111. Blood pressure 117/70, respiration 18, temp 98.2, pulse ox 96% on room air. HEENT: Conjunctivae normal. NECK: No JVD. CARDIOVASCULAR: S1, S2. RESPIRATIONS: Breath sounds diminished in the bases. A few rhonchi and crackles. ABDOMEN: Soft, nontender. LEGS are no edema. No swelling. NERVOUS SYSTEM: Higher functions as mentioned earlier. Moves all four extremities. No focal deficits. LYMPHATICS: No lymph nodes palpable in the neck, axillae or groin. SKIN: No ulcers, rashes or bleeding. JOINTS: No active deforming arthropathy. LABORATORY DATA: CBC within normal limits. Sodium 135, AST/ALT noted. ASSESSMENT: 1. Acute COVID-19 infection with bilateral interstitial pneumonia. 2. Acute diarrhea as well as nausea with gastroenteritis symptoms secondary to Covid 19. 3. Hyponatremia. 4. Elevated inflammatory markers including LDH and CRP. 5. Elevated AST/ALT. 6. History of hyperlipidemia. 7. History of degenerative joint disease. 8. History of hypothyroidism. 9. History of restless legs syndrome. 10.History of anemia. 11.History of cardiac catheterization. 12.Obesity with body mass of 31.3. RECOMMENDATIONS AND DISCUSSION: This 54-year-old woman who presented with multiple complex medical issues, we will monitor the patient closely, continue the current medications, management and recommend cautious IV fluids and inflammatory markers. Infectious disease evaluation and explore whether the patient is a candidate for Remdesivir. Otherwise initiate dexamethasone, Zinc and Lovenox. Prognosis guarded. Further recommendations to follow. A copy of dictation forwarded to Dr. Ngo, who is the primary physician. MMODL / IJN: [id number] /
[2020-03-14] MEDS: ASPIRIN 81 MG PO SCH (21:28)
[2020-03-14] MEDS: ATORVASTATIN 10 MG TAB PO SCH (21:28)
[2020-03-14] MEDS: BACLOFEN 10 MG TAB PO SCH (21:28)
[2020-03-14] MEDS: GABAPENTIN 100 MG CAP PO SCH (21:28)
[2020-03-14 23:57] LABS: Ferritin 275.1 ng/mL (10.0-291.0)
[2020-03-15] MEDS: ACETAMINOPHEN TAB 325 MG TAB PO PRN ×3 (01:34→17:55)
[2020-03-15] MEDS: LEVOTHYROXINE 137 MCG TAB PO SCH (05:54)
[2020-03-15 07:12] LABS: Basophils % (A) 1 %; Eosinophils % (A) 0 %; HCT 33.8 % (34.0-46.0); HGB 11.5 gm/dL (11.4-16.0); Lymphocytes # (A) 0.7 k/uL (1.0-4.8); Lymphocytes % (A) 20 %; MCH 29.6 pg (25.0-35.0); MCHC 33.9 g/dL (31.0-37.0); MCV 87.4 fL (80.0-100.0); Monocytes # (A) 0.2 k/uL (0-1.0); Monocytes % (A) 6 %; Neutrophils # (A) 2.4 k/uL (1.3-7.7); Neutrophils % (A) 71 %; Platelet Count 158 k/uL (150-450); RBC 3.87 m/uL (3.80-5.40); RDW 12.7 % (11.5-15.5); WBC 3.4 k/uL (3.8-10.6)
[2020-03-15] MEDS: ZINC SULFATE 220 MG CAP PO SCH (08:05)
[2020-03-15] MEDS: ASCORBIC ACID 500 MG TAB PO SCH (08:05)
[2020-03-15] MEDS: dexAMETHasone 2 MG TAB PO SCH (08:05)
[2020-03-15] MEDS: MULTIVITAMINS, THERA 1 EACH TAB PO SCH (08:05)
[2020-03-15] MEDS: SODIUM CHLORIDE 0.9% 1,000 ML IV SCH (08:05)
[2020-03-15] MEDS: GABAPENTIN 100 MG CAP PO SCH ×3 (08:05→20:31)
[2020-03-15] MEDS: FERROUS SULFATE 325 MG TAB PO SCH (08:06)
[2020-03-15] MEDS: METOPROLOL SUCCINATE (ER) 25 MG TAB.ER.24H PO SCH (08:06)
[2020-03-15] MEDS: CHOLECALCIFEROL 1,000 UNIT TAB PO SCH (08:06)
--- NOTE | 2020-03-15 08:42 | XR ---
EXAMINATION TYPE: XR chest 1V portable DATE OF EXAM: 03/15/2020 COMPARISON: Prior chest x-ray 03/14/2020 HISTORY: Pneumonia TECHNIQUE: Single frontal view of the chest is obtained. FINDINGS: Some patchy basilar density is again seen. No evident pneumothorax or sizable pleural effu reyna. Lung volumes are low. Cardiac mediastinal silhouette, pulmonary vascularity and benitez are unchan ged. IMPRESSION: Essentially stable findings. Correlate for bilateral pneumonia, basilar atelectasis., Fo llow-up PA and lateral chest x-ray when stable.
[2020-03-15] MEDS ORDERED: MULTIVITAMINS, THERA 1 EACH TAB PO SCH (09:00)
[2020-03-15 10:06] LABS: African American GFR (CKD) 118.9 (60.0-200.0); Anion Gap 8.7 mmol/L (4.00-12.00); BUN/Creat Ratio 11.67 Ratio (12.00-20.00); Calcium 8.4 mg/dL (8.7-10.3); Carbon Dioxide 25.3 mmol/L (21.6-31.8); Non-African American GFR(CKD) 102.6 (60.0-200.0); Potassium 3.8 mmol/L (3.5-5.5)
[2020-03-15] MEDS: ENOXAPARIN 40 MG/0.4 ML SYRINGE SQ SCH (10:58)
--- NOTE | 2020-03-15 15:19 | P.PN ---
Subjective Progress Note Date: 03/15/20 This is a 54-year-old female who was recently admitted with shortness of breath with cough and fever along with some chills and is being closely monitored. Patient was found to have Covid 19 with a chest x-ray showing bilateral pneumonia as well as computed tomography scan. No evidence of PE noted and p atient is maintained on Lovenox. Infectious disease is consulted and currently pending at this time. Patient is maintained on oral dexamethasone along with zinc and Lovenox. Patient is currently 95% on room air. Patient continues to have some mild GI upset and is maintained on clear liquids. May advance slowly as tolerated. Review of systems: Constitutional: reports fatigue, fever, and chills Cardiovascular: No reports of chest pain or palpitations Respiratory: Reports mild shortness of breath and cough GI: Reports intermittent nausea, no vomiting, loose stools : No reports of dysuria or retention Neurovascular: No reports of weakness or numbness All medications have been reviewed Active Medications Acetaminophen (Acetaminophen Tab 325 Mg Tab) 650 mg PO Q6HR PRN PRN Reason: Fever and/ or Pain Last Admin: 03/15/20 08:19 Dose: 650 mg Documented by: Hydrocodone Bitart/Acetaminophen (Hydrocodone/Apap 5-325mg 1 Each Tab) 1 each PO Q6HR PRN PRN Reason: Pain Alprazolam (Alprazolam 0.25 Mg Tab) 0.25 mg PO TID PRN PRN Reason: Anxiety Ascorbic Acid (Ascorbic Acid 500 Mg Tab) 500 mg PO DAILY [facility] Last Admin: 03/15/20 08:05 Dose: 500 mg Documented by: Aspirin (Aspirin 81 Mg) 81 mg PO [facility] Last Admin: 03/14/20 21:28 Dose: 81 mg Documented by: Atorvastatin Calcium (Atorvastatin 10 Mg Tab) 10 mg PO [facility] Last Admin: 03/14/20 21:28 Dose: 10 mg Documented by: Baclofen (Baclofen 10 Mg Tab) 10 mg PO [facility] Last Admin: 03/14/20 21:28 Dose: 10 mg Documented by: Cholecalciferol (Cholecalciferol 1,000 Unit Tab) 1,000 unit PO DAILY [facility] Last Admin: 03/15/20 08:06 Dose: 1,000 unit Documented by: Dexamethasone (Dexamethasone 2 Mg Tab) 6 mg PO DAILY [facility] Last Admin: 03/15/20 08:05 Dose: 6 mg Documented by: Enoxaparin Sodium (Enoxaparin 40 Mg/0.4 Ml Syringe) 40 mg SQ DAILY [facility] Last Admin: 03/15/20 10:58 Dose: 40 mg Documented by: Ferrous Sulfate (Ferrous Sulfate 325 Mg Tab) 325 mg PO DAILY [facility] Last Admin: 03/15/20 08:06 Dose: 325 mg Documented by: Gabapentin (Gabapentin 100 Mg Cap) 100 mg PO BID [facility] Last Admin: 03/15/20 08:12 Dose: Not Given Documented by: Sodium Chloride (Saline 0.9%) 1,000 mls @ 75 mls/hr IV .[id number] [facility] Last Admin: 03/15/20 08:05 Dose: 75 mls/hr Documented by: Levothyroxine Sodium (Levothyroxine 137 Mcg Tab) 137 mcg PO DAILY@0600 [facility] Last Admin: 03/15/20 05:54 Dose: 137 mcg Documented by: Metoprolol Succinate (Metoprolol Succinate (Er) 25 Mg Tab.Er.24h) 25 mg PO DAILY [facility] Last Admin: 03/15/20 08:06 Dose: 25 mg Documented by: Multivitamins (Multivitamins, Thera 1 Each Tab) 1 each PO DAILY@1200 [facility] Last Admin: 03/15/20 08:05 Dose: 1 each Documented by: Temazepam (Temazepam 15 Mg Cap) 15 mg PO HS PRN PRN Reason: Insomnia Zinc Sulfate (Zinc Sulfate 220 Mg Cap) 220 mg PO DAILY [facility] Last Admin: 03/15/20 08:05 Dose: 220 mg Documented by: Objective - Vital Signs Vital signs: Vital Signs Temp 97.4 F L 03/15/20 11:15 Pulse 96 03/15/20 11:15 Resp 16 03/15/20 11:15 BP 129/79 03/15/20 11:15 Pulse Ox 95 03/15/20 11:15 Intake & Output 03/14/20 03/15/20 03/15/20 18:59 06:59 18:59 Intake Total 1260 Balance 1260 Weight 90.718 kg Intake: Intake, IV Titration 900 Amount Sodium Chloride 0.9% 1, 900 000 ml @ 75 mls/hr IV . [id number] [facility] Rx#:[id number] Oral 360 Other: # Voids 1 # Bowel Movements 1 1 - Exam Gen: This is a 54-year-old female awake, alert and oriented 3, well-developed, well-nourished. Temp is 97.4F, pulse is 86, respirations are 16, blood pressure is 129/79, oxygen saturation is 95% on room air. HEENT: Head is atraumatic, normocephalic. Pupils equal, round. Sclerae is anicteric. NECK: Supple. No JVD. No lymphadenopathy. No thyromegaly. LUNGS: breath Sounds diminished at the bases with a few scattered rhonchi and crackles noted. No intercostal retractions. HEART: S1, S2 are muffled ABDOMEN: Soft. Bowel sounds are present. No masses. No tenderness. EXTREMITIES: No pedal edema. No calf tenderness. NEUROLOGICAL: Patient is awake, alert and oriented x3. Cranial nerves 2 through 12 are grossly intact. - Labs CBC & Chem 7: 03/15/20 06:34 03/15/20 06:34 Labs: Abnormal Lab Results - Last 24 Hours (Table) 03/14/20 03/15/20 03/15/20 Range/Units 14:38 06:34 06:34 WBC 3.4 L (3.8-10.6) k/uL Hct 33.8 L (34.0-46.0) % Lymphocytes # 0.7 L (1.0-4.8) k/uL D-Dimer 1.36 H (<0.60) mg/L FEU BUN 7.0 L (9.0-27.0) mg/dL BUN/Creatinine Ratio 11.67 L (12.00-20.00) Ratio Glucose 129 H (70-110) mg/dL Calcium 8.4 L (8.7-10.3) mg/dL Assessment and Plan Assessment: Acute Covid 19 infection with bilateral interstitial pneumonia Acute diarrhea as well as nausea with gastroenteritis symptoms secondary to Covid 19 Hyponatremia, improved Elevated inflammatory markers including LDH and CRP Elevated AST, ALT History of hyperlipidemia history of degenerative joint disease History of hypothyroidism history of restless leg syndrome History of anemia history of cardiac catheterization Obesity with a body mass index of 31.3 Recommendations and discussion: Recommend continue current medications, management, and symptomatic treatment. Infectious disease is consulted and pending at this time. Patient is maintained on dexamethasone along with zinc and Lovenox and will continue at this time. Possibility of Remdesivir treatment. Instructed to continue to advance diet slowly as tolerated. C. diff currently pending. Will continue to monitor vital signs and labs closely. Prognosis is guarded. Further recommendations to follow.
[2020-03-15] MEDS ORDERED: LOPERAMIDE 2 MG CAP PO PRN (19:16)
[2020-03-15] MEDS: BACLOFEN 10 MG TAB PO SCH (20:32)
[2020-03-15] MEDS: ATORVASTATIN 10 MG TAB PO SCH (20:32)
[2020-03-15] MEDS: ASPIRIN 81 MG PO SCH (20:32)
--- NOTE | 2020-03-15 23:38 | P.CONS ---
History of Present Illness - Reason for Consult Consult date: 03/15/20 covid Requesting physician: Jorge Lovelace - Chief Complaint weakness and diarrhea x 1 week - History of Present Illness Patient is a 54-year-old female presenting to the ER at [facility] yesterday afternoon for evaluation of fatigue generalized body aches fever and chills in this patient symptom has been going on for about a week patient was tested for Covid 3 days ago and came back positive, patient denies significant shortness of breath minimal cough which is dry nature some nausea but no vomiting however we did have significant diarrhea with multiple more stools denies any blood or mucus in the stool with the symptom the patient was evaluated by the ER physician on arrival to the ER patient was afebrile and no fever has been recorded patient has been satting 96 to 95% on room air patient did have a normal white count with lymphopenia D-dimer was 1.36 liver enzymes elevated CRP is 41.1 procalcitonin was normal patient did have stool for C. difficile which came back negative patient did have a chest x-ray bilateral lower lobe infiltrate correlate for pneumonia CT angiogram of the chest was suggestive of scattered infiltrate patient has been admitted to the hospital currently being treated with dexamethasone Lovenox Imodium and zinc sulfate infection was consulted for further management. Review of Systems Positive point has been mentioned in HPI rest of the systems are negative. Past Medical History Past Medical History: Hyperlipidemia, Osteoarthritis (OA), Thyroid Disorder Additional Past Medical History / Comment(s): RLS., anemia, occasional "racing heart" ., states mass in colon/ hemicolectomy. History of Any Multi-Drug Resistant Organisms: None Reported Past Surgical History: Heart Catheterization, Hysterectomy Additional Past Surgical History / Comment(s): partial thyroidectomy, fatty tumor on neck, R hemicolectomy. Past Anesthesia/Blood Transfusion Reactions: Postoperative Nausea & Vomiting (PONV) Past Psychological History: No Psychological Hx Reported Smoking Status: Never smoker Past Alcohol Use History: None Reported Past Drug Use History: None Reported - Past Family History Father Family Medical History: Cancer, Myocardial Infarction ([place]) Additional Family Medical History / Comment(s): Bladder CA, from [place]-CABG Mother Family Medical History: Diabetes Mellitus, Hypertension Additional Family Medical History / Comment(s): [place] Son(s) Family Medical History: Diabetes Mellitus Sister(s) Family Medical History: Diabetes Mellitus, Hyperlipidemia Medications and Allergies Home Medications Medication Instructions Recorded Confirmed Type Gabapentin [Neurontin] 100 mg PO BID 08/17/15 03/14/20 History Levothyroxine Sodium [Synthroid] 137 mcg PO QAM 08/17/15 03/14/20 History Atorvastatin [Lipitor] 10 mg PO HS 07/05/17 03/14/20 History Aspirin 81 mg PO HS 08/13/17 03/14/20 History Ferrous Sulfate [Iron (65 MG 325 mg PO DAILY 08/13/17 03/14/20 History Elemental)] Baclofen [Lioresal] 10 mg PO HS 08/21/18 03/14/20 History Multivitamin [Multivitamins Adult 1 tab PO DAILY 08/21/18 03/14/20 History Gummies] Metoprolol Succinate (ER) [Toprol 25 mg PO DAILY 03/11/20 03/14/20 History Xl] Azithromycin [Zithromax Tri-Bartolo (3 500 mg PO DIRECTED 03/14/20 03/14/20 History tabs)] Allergies Allergy/AdvReac Type Severity Reaction Status Date / Time No Known Allergies Allergy Verified 03/14/20 12:44 Physical Exam Vitals: Vital Signs Temp Pulse Resp BP Pulse Ox 03/15/20 19:52 96 16 03/15/20 19:35 98.0 F 86 16 133/83 94 L 03/15/20 16:26 96 03/15/20 12:02 94 L 03/15/20 11:15 97.4 F L 96 16 129/79 95 03/15/20 07:30 18 03/15/20 07:14 98.0 F 76 16 110/64 96 03/15/20 02:05 98.0 F 85 16 119/78 93 L Intake and Output 03/15/20 03/15/20 03/15/20 06:59 14:59 22:59 Intake Total 1260 662 Balance 1260 662 Intake: Intake, IV Titration 900 12 Amount Sodium Chloride 0.9% 1, 900 12 000 ml @ 75 mls/hr IV . [id number] Rx#:[id number] Oral 360 650 Other: # Voids 1 1 # Bowel Movements 1 1 1 GENERAL DESCRIPTION: Middle-aged female lying in bed, no distress. No tachypnea or accessory muscle of respiration use. HEENT: Shows Pallor , no scleral icterus. Oral mucous membrane is dry. NECK: Trachea central, no thyromegaly. LUNGS: Unlabored breathing. Decreased breath sound at the base. No wheeze or crackle. HEART: S1, S2, regular rate and rhythm. ABDOMEN: Soft, no tenderness , guarding or rigidity EXTREMITIES: No edema of feet. SKIN: No rash, no masses palpable. NEUROLOGICAL: The patient is awake, alert, oriented x3, mood and affect normal. Results CBC & Chem 7: 03/15/20 06:34 03/15/20 06:34 Labs: Abnormal Lab Results - Last 24 Hours (Table) 03/15/20 03/15/20 Range/Units 06:34 06:34 WBC 3.4 L (3.8-10.6) k/uL Hct 33.8 L (34.0-46.0) % Lymphocytes # 0.7 L (1.0-4.8) k/uL BUN 7.0 L (9.0-27.0) mg/dL BUN/Creatinine Ratio 11.67 L (12.00-20.00) Ratio Glucose 129 H (70-110) mg/dL Calcium 8.4 L (8.7-10.3) mg/dL Microbiology - Last 24 Hours (Table) 03/14/20 14:38 Blood Culture - Preliminary Blood No Growth after 24 hours Assessment and Plan Assessment: -patient presented to hospital with generalized weakness body aches fever and diarrhea however the patient did have very minimal respiratory symptoms and is currently not hypoxic or need for supplemental oxygen therapy this patient diagnosed with acute COVID-19 infection (1) COVID-19 Current Visit: Yes Status: Acute Code(s): U07.1 - COVID-19 SNOMED Code(s): 224498238 Plan: 1-patient to continue with the dexamethasone Lovenox and zinc sulfate 2-we will add Questran for symptomatic relief 3-recheck inflammatory markers tomorrow 4-if develop any hypoxemia or worsening respiratory status she will qualify for remdesivir currently with O2 sats more than 94% will not qualify for remdesivir per institutional policy 5-droplet isolation We will follow on clinical condition and cultures to further adjust medication if needed Thank you for this consultation we will follow the patient along with you Time with Patient: Greater than 30
[2020-03-16] MEDS: ACETAMINOPHEN TAB 325 MG TAB PO PRN ×2 (02:28→22:18)
[2020-03-16] MEDS: LEVOTHYROXINE 137 MCG TAB PO SCH (06:29)
[2020-03-16 06:40] LABS: Basophils % (A) 0 %; Eosinophils % (A) 0 %; HCT 37.2 % (34.0-46.0); HGB 12.6 gm/dL (11.4-16.0); Lymphocytes # (A) 1.8 k/uL (1.0-4.8); Lymphocytes % (A) 29 %; MCH 29.2 pg (25.0-35.0); MCHC 33.9 g/dL (31.0-37.0); MCV 86.3 fL (80.0-100.0); Monocytes # (A) 0.3 k/uL (0-1.0); Monocytes % (A) 5 %; Neutrophils # (A) 4.1 k/uL (1.3-7.7); Neutrophils % (A) 64 %; Platelet Count 168 k/uL (150-450); RBC 4.31 m/uL (3.80-5.40); RDW 13.1 % (11.5-15.5); WBC 6.3 k/uL (3.8-10.6)
[2020-03-16] MEDS: CHOLESTYRAMINE (WITH SUGAR) 4 GM PACKET PO SCH ×2 (08:13→17:33)
[2020-03-16] MEDS: dexAMETHasone 2 MG TAB PO SCH (08:14)
[2020-03-16] MEDS: FERROUS SULFATE 325 MG TAB PO SCH (08:14)
[2020-03-16] MEDS: CHOLECALCIFEROL 1,000 UNIT TAB PO SCH (08:14)
[2020-03-16] MEDS: MULTIVITAMINS, THERA 1 EACH TAB PO SCH (08:14)
[2020-03-16] MEDS: ENOXAPARIN 40 MG/0.4 ML SYRINGE SQ SCH (08:14)
[2020-03-16] MEDS: ASCORBIC ACID 500 MG TAB PO SCH (08:14)
[2020-03-16] MEDS: ZINC SULFATE 220 MG CAP PO SCH (08:15)
[2020-03-16] MEDS: METOPROLOL SUCCINATE (ER) 25 MG TAB.ER.24H PO SCH (08:15)
[2020-03-16] MEDS: GABAPENTIN 100 MG CAP PO SCH ×2 (08:15→22:12)
[2020-03-16 10:25] LABS: African American GFR (CKD) 96.2 (60.0-200.0); Anion Gap 7.1 mmol/L (4.00-12.00); BUN/Creat Ratio 8.75 Ratio (12.00-20.00); C Reactive Protein 3.8 mg/dL (0.0-0.8); Calcium 8.4 mg/dL (8.7-10.3); Carbon Dioxide 27.9 mmol/L (21.6-31.8); Potassium 3.6 mmol/L (3.5-5.5)
--- NOTE | 2020-03-16 12:07 | XR ---
EXAMINATION TYPE: XR chest 1V portable DATE OF EXAM: 03/16/2020 COMPARISON: 03/15/2020 HISTORY: Shortness of breath and cough TECHNIQUE: Single frontal view of the chest is obtained. FINDINGS: There are bilateral lower lobe infiltrates. Patchy infiltrate in the right upper lobe late rally. Findings are progressed from prior exam. Heart size stable. No pneumothorax. Tiny bilateral ef fusion suspected. IMPRESSION: 1. There is mild progression of bilateral areas of infiltrate correlate for pneumonia.
[2020-03-16] MEDS: ATORVASTATIN 10 MG TAB PO SCH (22:12)
[2020-03-16] MEDS: BACLOFEN 10 MG TAB PO SCH (22:12)
[2020-03-16] MEDS: ASPIRIN 81 MG PO SCH (22:12)
[2020-03-16] MEDS: SODIUM CHLORIDE 0.9% 1,000 ML IV SCH (22:12)
[2020-03-16] MEDS: methylPREDNISolone SOD SUCCI 125 MG/2 ML VIAL IV SCH (23:31)
--- NOTE | 2020-03-17 00:28 | P.PN ---
Subjective Progress Note Date: 03/16/20 This is a 54-year-old female who was recently admitted with shortness of breath with cough and fever along with some chills and is being closely monitored. Patient was found to have Covid 19 with a chest x-ray showing bilateral pneumonia as well as computed tomography scan. No evidence of PE noted and p atient is maintained on Lovenox. Infectious disease is consulted and currently pending at this time. Patient is maintained on oral dexamethasone along with zinc and Lovenox. Patient is currently 95% on room air. Patient continues to have some mild GI upset and is maintained on clear liquids. May advance slowly as tolerated. Review of systems: Constitutional: reports fatigue, fever, and chills Cardiovascular: No reports of chest pain or palpitations Respiratory: Reports mild shortness of breath and cough GI: Reports intermittent nausea, no vomiting, loose stools : No reports of dysuria or retention Neurovascular: No reports of weakness or numbness All medications have been reviewed 03/16/2020 Patient is seen in follow up and continues to have multiple episodes of diarrhea with some nausea throughout the night. Patient is lethargic and having intermittent low grade fevers. Patient is tolerating diet with no vomiting noted. Patient remains on IV steroids, zinc, and lovenox. Dexamethasone discontinued. Infectious disease following. Patient oxygen saturations currently 93-94% on room air. Discussed with the patient about increasing activity as tolerated. Incentive spirometer ordered and instructed patient to continue using 10 times every hour while awake. Patient denies any chest pain or palpitations. Patient denies any worsening shortness of breath, but is having a dry cough. Patient having intermittent low grade temps of 100 degrees. Active Medications Acetaminophen (Acetaminophen Tab 325 Mg Tab) 650 mg PO Q6HR PRN PRN Reason: Fever and/ or Pain Last Admin: 03/16/20 02:28 Dose: 650 mg Documented by: Hydrocodone Bitart/Acetaminophen (Hydrocodone/Apap 5-325mg 1 Each Tab) 1 each PO Q6HR PRN PRN Reason: Pain Alprazolam (Alprazolam 0.25 Mg Tab) 0.25 mg PO TID PRN PRN Reason: Anxiety Ascorbic Acid (Ascorbic Acid 500 Mg Tab) 500 mg PO DAILY [facility] Last Admin: 03/16/20 08:14 Dose: 500 mg Documented by: Aspirin (Aspirin 81 Mg) 81 mg PO HS [facility] Last Admin: 03/15/20 20:32 Dose: 81 mg Documented by: Atorvastatin Calcium (Atorvastatin 10 Mg Tab) 10 mg PO HS [facility] Last Admin: 03/15/20 20:32 Dose: 10 mg Documented by: Baclofen (Baclofen 10 Mg Tab) 10 mg PO HS [facility] Last Admin: 03/15/20 20:32 Dose: 10 mg Documented by: Cholecalciferol (Cholecalciferol 1,000 Unit Tab) 1,000 unit PO DAILY [facility] Last Admin: 03/16/20 08:14 Dose: 1,000 unit Documented by: Cholestyramine Resin (Cholestyramine (With Sugar) 4 Gm Packet) 4 gm PO BID@1000,1800 [facility] Last Admin: 03/16/20 08:13 Dose: 4 gm Documented by: Dexamethasone (Dexamethasone 2 Mg Tab) 6 mg PO DAILY [facility] Last Admin: 03/16/20 08:14 Dose: 6 mg Documented by: Enoxaparin Sodium (Enoxaparin 40 Mg/0.4 Ml Syringe) 40 mg SQ DAILY [facility] Last Admin: 03/16/20 08:14 Dose: 40 mg Documented by: Ferrous Sulfate (Ferrous Sulfate 325 Mg Tab) 325 mg PO DAILY [facility] Last Admin: 03/16/20 08:14 Dose: 325 mg Documented by: Gabapentin (Gabapentin 100 Mg Cap) 100 mg PO BID [facility] Last Admin: 03/16/20 08:15 Dose: 100 mg Documented by: Sodium Chloride (Saline 0.9%) 1,000 mls @ 75 mls/hr IV .[id number] [facility] Last Admin: 03/15/20 08:05 Dose: 75 mls/hr Documented by: Levothyroxine Sodium (Levothyroxine 137 Mcg Tab) 137 mcg PO DAILY@0600 [facility] Last Admin: 03/16/20 06:29 Dose: 137 mcg Documented by: Loperamide HCl (Loperamide 2 Mg Cap) 2 mg PO QID PRN PRN Reason: Diarrhea Last Admin: 03/15/20 20:37 Dose: 2 mg Documented by: Metoprolol Succinate (Metoprolol Succinate (Er) 25 Mg Tab.Er.24h) 25 mg PO DAILY [facility] Last Admin: 03/16/20 08:15 Dose: 25 mg Documented by: Multivitamins (Multivitamins, Thera 1 Each Tab) 1 each PO DAILY@1200 [facility] Last Admin: 03/16/20 08:14 Dose: 1 each Documented by: Temazepam (Temazepam 15 Mg Cap) 15 mg PO HS PRN PRN Reason: Insomnia Zinc Sulfate (Zinc Sulfate 220 Mg Cap) 220 mg PO DAILY [facility] Last Admin: 03/16/20 08:15 Dose: 220 mg Documented by: Objective - Vital Signs Vital signs: Vital Signs Temp 98.5 F 03/16/20 11:51 Pulse 92 03/16/20 11:51 Resp 17 03/16/20 11:51 BP 111/67 03/16/20 11:51 Pulse Ox 94 L 03/16/20 13:10 Intake & Output 03/15/20 03/16/20 03/16/20 18:59 06:59 18:59 Intake Total 662 Balance 662 Intake: Intake, IV Titration 12 Amount Sodium Chloride 0.9% 1, 12 000 ml @ 75 mls/hr IV . [id number] [facility] Rx#:[id number] Oral 650 Other: # Voids 3 3 # Bowel Movements 1 0 - Exam Gen: This is a 54-year-old female awake, alert and oriented 3, well-developed, well-nourished. Temp is 98.5F, pulse is 92, respirations are 17, blood pressure is 111/67, oxygen saturation is 94% on room air. HEENT: Head is atraumatic, normocephalic. Pupils equal, round. Sclerae is anicteric. NECK: Supple. No JVD. No lymphadenopathy. No thyromegaly. LUNGS: breath Sounds diminished at the bases with a few scattered rhonchi and crackles noted. No intercostal retractions. HEART: S1, S2 are muffled ABDOMEN: Soft. Bowel sounds are present. No masses. No tenderness. EXTREMITIES: No pedal edema. No calf tenderness. NEUROLOGICAL: Patient is awake, alert and oriented x3. Cranial nerves 2 through 12 are grossly intact. - Labs CBC & Chem 7: 03/16/20 06:07 03/16/20 06:29 Labs: Abnormal Lab Results - Last 24 Hours (Table) 03/16/20 03/16/20 Range/Units 06:07 06:29 D-Dimer 0.95 H (<0.60) mg/L FEU BUN 7.0 L (9.0-27.0) mg/dL BUN/Creatinine Ratio 8.75 L (12.00-20.00) Ratio Calcium 8.4 L (8.7-10.3) mg/dL Lactate Dehydrogenase 271 H (120-246) U/L C-Reactive Protein 3.8 H (0.0-0.8) mg/dL Microbiology - Last 24 Hours (Table) 03/14/20 14:38 Blood Culture - Preliminary Blood No Growth after 24 hours Assessment and Plan Assessment: Acute Covid 19 infection with bilateral interstitial pneumonia Acute diarrhea as well as nausea with gastroenteritis symptoms secondary to Covid 19 Hyponatremia, improved Elevated inflammatory markers including LDH and CRP Elevated AST, ALT History of hyperlipidemia history of degenerative joint disease History of hypothyroidism history of restless leg syndrome History of anemia history of cardiac catheterization Obesity with a body mass index of 31.3 Recommendations and discussion: Recommend continue current medications, management, and symptomatic treatment. Infectious disease following. Patient is maintained on IV solumedrol along with zinc and Lovenox and will continue at this time. Possibility of Remdesivir treatment although patient oxygen saturations remain 93-94% room air. Instructed to continue to advance diet slowly as tolerated. Instructed the patient to use Incentive spirometer at least 10 times every hour while awake and increase activity as tolerated. C. diff negative. Will continue to monitor vital signs and labs closely. Prognosis is guarded. Further recommendations to follow.
--- NOTE | 2020-03-17 01:15 | PN ---
PROGRESS NOTE DATE OF SERVICE: 03/16/2020 REASON FOR FOLLOWUP: COVID-19 with GI symptoms. INTERVAL HISTORY: The patient is currently afebrile, however, she did have a low-grade fever of 100.7 around 2:20 this morning. The patient has been complaining mostly of diarrhea and slightly anxious. Denies having any shortness of breath or cough though. No nausea, no vomiting. PHYSICAL EXAMINATION: Blood pressure 122/77 with a pulse of 63, temperature 99.4. She is 94% on room air. General description is a middle-aged female lying in bed in no distress. RESPIRATORY SYSTEM: Unlabored breathing with decreased intensity of breath sounds. No wheeze. HEART S1, S2. Regular rate and rhythm. ABDOMEN: Soft, no tenderness. LABS: Hemoglobin is 12.6, white count 6.3. D-dimer is down to 0.95. CRP is down to 3.8. Stool for C difficile was negative. Procalcitonin was negative. DIAGNOSTIC IMPRESSION AND PLAN: Patient with acute COVID-19 infection in this patient predominantly gastrointestinal symptoms and the patient did have slight progression of infiltrate on the chest x-ray. The patient is currently covered with dexamethasone, Lovenox and zinc sulfate. In view of slight progression on the chest x-ray, we will switch over dexamethasone to Solu-Medrol and see clinical response. If any evidence of hypoxemia, will start the patient on remdesivir. MMARIANNA / ANNETTEN: [id number] /
[2020-03-17 05:39] VITALS: TEMP 98.1
[2020-03-17] MEDS: LEVOTHYROXINE 137 MCG TAB PO SCH (05:59)
[2020-03-17] MEDS: methylPREDNISolone SOD SUCCI 125 MG/2 ML VIAL IV SCH ×2 (05:59→12:53)
[2020-03-17 09:59] LABS: Basophils % (A) 0 %; Eosinophils % (A) 0 %; HGB 12.5 gm/dL (11.4-16.0); Lymphocytes # (A) 0.7 k/uL (1.0-4.8); Lymphocytes % (A) 12 %; MCH 29.8 pg (25.0-35.0); MCHC 33.7 g/dL (31.0-37.0); MCV 88.4 fL (80.0-100.0); Mean Platelet Volume 7.6; Monocytes # (A) 0.1 k/uL (0-1.0); Monocytes % (A) 2 %; Neutrophils % (A) 84 %; Platelet Count 256 k/uL (150-450); RBC 4.18 m/uL (3.80-5.40); WBC 5.9 k/uL (3.8-10.6)
[2020-03-17] MEDS: GABAPENTIN 100 MG CAP PO SCH (10:18)
[2020-03-17] MEDS: ZINC SULFATE 220 MG CAP PO SCH (10:18)
[2020-03-17] MEDS: MULTIVITAMINS, THERA 1 EACH TAB PO SCH (10:18)
[2020-03-17] MEDS: METOPROLOL SUCCINATE (ER) 25 MG TAB.ER.24H PO SCH (10:18)
[2020-03-17] MEDS: ENOXAPARIN 40 MG/0.4 ML SYRINGE SQ SCH (10:18)
[2020-03-17] MEDS: CHOLECALCIFEROL 1,000 UNIT TAB PO SCH (10:18)
[2020-03-17] MEDS: CHOLESTYRAMINE (WITH SUGAR) 4 GM PACKET PO SCH (10:19)
[2020-03-17] MEDS: FERROUS SULFATE 325 MG TAB PO SCH (10:19)
[2020-03-17] MEDS: ASCORBIC ACID 500 MG TAB PO SCH (12:50)
--- NOTE | 2020-03-17 12:53 | P.DS ---
Providers Date of admission: 03/14/20 16:26 Expected date of discharge: 03/17/20 Attending physician: Jorge Lovelace Consults: 03/14/20 16:26 Consult Physician Routine Consulting Provider: Trxiie Sanches Consult Reason/Comments: covid Do you want consulting provider notified?: Yes Primary care physician: Jeni Rapp Assessment: Final diagnosis Acute Covid 19 infection with bilateral interstitial pneumonia Acute diarrhea as well as nausea with gastroenteritis symptoms secondary to Covid 19 Hyponatremia, improved Elevated inflammatory markers including LDH and CRP Elevated AST, ALT History of hyperlipidemia history of degenerative joint disease History of hypothyroidism history of restless leg syndrome History of anemia history of cardiac catheterization Obesity with a body mass index of 31.3 Discharge disposition Patient is being discharged in a stable condition with guarded prognosis to home. Patient will follow-up with Dr. Ngo in the outpatient setting upon di scharge. Patient is to continue with prednisone taper along with zinc supplements and Questran as needed for loose stools. Total time taken is greater than 35 minutes. History of present illness This is a 54-year-old female who was recently admitted with shortness of breath with cough and fever along with some chills and GI symptoms, Covid 19 and was being closely monitored. Patient continued to have some GI symptoms including vomiting and diarrhea and was started on Questran. Infectious disease following and patient was initiated on dexamethasone although transitioned to IV steroids and will continue with the prednisone taper in the outpatient setting. She will also continue with zinc supplements and vitamin C. Patient was given a prescription for Questran to be used as needed for loose stools. Patient's diet was tolerated and advance and instructed to slowly advance as tolerated at home. Patient states the diarrhea has subsided and is tolerating food with no vomiting or nausea noted. Patient also instructed to continue to quarantine for an additional 7-10 days until symptom-free for 3 days and follow-up with primary care provider. Patient is currently maintained on room air and instructed to continue using incentive spirometer at least 10 times every hour while awake. Currently no reports of chest pain, worsening shortness of breath, or palpitations. Patient is afebrile. No reports of nausea or vomiting and patient is tolerating diet. Patient will be going home today. On exam vital signs are stable. Temp is 98.1F, pulse is 62, respirations are 16, blood pressure is 123/69, oxygen saturation is 93% on room air. Cardio S1, S2 are muffled. Respiratory system shows diminished breath sounds at the bases with no wheezing or rhonchi noted. Abdomen is soft and nontender. Nervous system shows no focal deficits. Please refer to medication reconciliation sheet for a list of medications. Patient Condition at Discharge: Fair Plan - Discharge Summary New Discharge Prescriptions: New predniSONE 0 mg PO DIRECTED #30 tab Cholestyramine (with Sugar) [Questran] 4 gm PO BID #20 packet Zinc Sulfate [Orazinc] 220 mg PO DAILY 30 Days #30 cap Acetaminophen Tab [Tylenol] 650 mg PO Q6HR PRN tab PRN Reason: Fever And/ Or Pain Ascorbic Acid [Vitamin C] 500 mg PO DAILY 30 Days #30 tab Cholecalciferol [Vitamin D3 (25 Mcg = 1000 Iu)] 1,000 unit PO DAILY 30 Days #30 tab Continue Levothyroxine Sodium [Synthroid] 137 mcg PO QAM Gabapentin [Neurontin] 100 mg PO BID Atorvastatin [Lipitor] 10 mg PO HS Ferrous Sulfate [Iron (65 MG Elemental)] 325 mg PO DAILY Aspirin 81 mg PO HS Multivitamin [Multivitamins Adult Gummies] 1 tab PO DAILY Baclofen [Lioresal] 10 mg PO HS Metoprolol Succinate (ER) [Toprol XL] 25 mg PO DAILY Discontinued Azithromycin [Zithromax Tri-Bartolo (3 tabs)] 500 mg PO DIRECTED Discharge Medication List Gabapentin [Neurontin] 100 mg PO BID 08/17/15 [History] Levothyroxine Sodium [Synthroid] 137 mcg PO QAM 08/17/15 [History] Atorvastatin [Lipitor] 10 mg PO HS 07/05/17 [History] Aspirin 81 mg PO HS 08/13/17 [History] Ferrous Sulfate [Iron (65 MG Elemental)] 325 mg PO DAILY 08/13/17 [History] Baclofen [Lioresal] 10 mg PO HS 08/21/18 [History] Multivitamin [Multivitamins Adult Gummies] 1 tab PO DAILY 08/21/18 [History] Metoprolol Succinate (ER) [Toprol XL] 25 mg PO DAILY 03/11/20 [History] Acetaminophen Tab [Tylenol] 650 mg PO Q6HR PRN tab 03/17/20 [Rx] Ascorbic Acid [Vitamin C] 500 mg PO DAILY 30 Days #30 tab 03/17/20 [Rx] Cholecalciferol [Vitamin D3 (25 Mcg = 1000 Iu)] 1,000 unit PO DAILY 30 Days #30 tab 03/17/20 [Rx] Cholestyramine (with Sugar) [Questran] 4 gm PO BID #20 packet 03/17/20 [Rx] Zinc Sulfate [Orazinc] 220 mg PO DAILY 30 Days #30 cap 03/17/20 [Rx] predniSONE 0 mg PO DIRECTED #30 tab 03/17/20 [Rx] Follow up Appointment(s)/Referral(s): Tamela Ngo MD [Primary Care Provider] - 1-2 days Patient Instructions/Handouts: Cholestyramine (By mouth), Prednisone (By mouth), Ascorbic Acid (By mouth), Zinc Supplement (By mouth), Vitamin D (By mouth) Activity/Diet/Wound Care/Special Instructions: Activity Limited until follow-up Follow up with primary care provider upon discharge Continue with prednisone taper Continue current diet and advance slowly as tolerated May use Questran for loose stools Continue quarantine for an additional 7-10 days until symptom-free for 3 days and follow-up with primary care provider Encourage fluids and rest Discharge Disposition: HOME SELF-CARE
[2020-03-17 13:11] VITALS: BP 136/85; PULSE 87; RESP 18
[2020-03-17 15:50] LABS: African American GFR (CKD) 83.4 (60.0-200.0); BUN/Creat Ratio 13.33 Ratio (12.00-20.00); Calcium 9.1 mg/dL (8.7-10.3); Potassium 3.8 mmol/L (3.5-5.5)
--- NOTE | 2020-03-17 16:26 | P.PN ---
Subjective Progress Note Date: 03/17/20 HISTORY OF PRESENT ILLNESS This is a 54-year-old female under treatment for Covid 19 GI symptoms. She had mostly diarrhea but states she has had none since yesterday morning. She denies having any nausea or vomiting. She denies any abdominal pain. She does complain of a cough when she takes a deep breath but no shortness of breath. Patient states that she is feeling a lot better. Patient has had significant improvement after switching to Solu-Medrol. She has been afebrile greater than 24 hours and has not required oxygen therapy. Repeat CBC is unremarkable except for lymphopenia at 0.7. Electrolytes and renal function normal. Blood sugar 293. C. difficile toxin was negative. PHYSICAL EXAMINATION Gen: This is a 54-year-old female. She is resting in chair and appea rs to be comfortable and in no acute distress. VS: Afebrile, heart rate 87, blood pressure 136/85, pulse ox 93% on room air. HEENT: Head is atraumatic, normocephalic. Pupils equal, round. Sclerae is a nicteric. LUNGS: Clear to auscultation. No wheezes or rhonchi. No intercostal retractions. HEART: Regular rate and rhythm. No murmur. ABDOMEN: Soft. Bowel sounds are present. No masses. No tenderness. EXTREMITIES: No pedal edema. No calf tenderness. NEUROLOGICAL: Patient is awake, alert and oriented x3. ASSESSMENT Acute: 19 infection with GI symptoms Possible Covid pneumonitis with infiltrate on chest x-ray PLAN Patient is clear for discharge from infectious disease Continue prednisone taper Continue Questran for diarrhea. The above dictated assessment and findings were discussed with Dr. Sanches. The impression and plan of care have been directed as dictated. Karina Moura nurse practitioner acting as scribe for Dr. Sanches. Objective - Vital Signs Vital signs: Vital Signs Temp 98.1 F 03/17/20 05:00 Pulse 62 03/17/20 05:00 Resp 16 03/17/20 05:00 BP 123/69 03/17/20 05:00 Pulse Ox 93 L 03/17/20 05:00 Intake & Output 03/16/20 03/17/20 03/17/20 18:59 06:59 18:59 Intake Total 900 590 Balance 900 590 Intake: Intake, IV Titration 900 Amount Sodium Chloride 0.9% 1, 900 000 ml @ 75 mls/hr IV . [id number] [facility] Rx#:[id number] Oral 590 Other: # Voids 2 - Labs CBC & Chem 7: 03/17/20 09:29 03/17/20 09:29 Labs: Abnormal Lab Results - Last 24 Hours (Table) 03/17/20 Range/Units 09:29 Lymphocytes # 0.7 L (1.0-4.8) k/uL Microbiology - Last 24 Hours (Table) 03/14/20 14:38 Blood Culture - Preliminary Blood No Growth after 48 hours
== END 2020-03-17 16:29 | disposition home or self-care (01) | DRG 177 ==
LOC: EC 11:12 → 6NMEDSUR 16:26
PROVIDERS: ADMIT Hospitalist; ATTEND Hospitalist
PROC: 05HC33Z Insertion of Infusion Device into Left Basilic Vein, Percutaneous Approach (ICD-10-PCS; principal; 2020-03-14 17:50)
DX: U07.1 COVID-19 (principal); J12.89 Other viral pneumonia; E87.1 Hypo-osmolality and hyponatremia; E78.5 Hyperlipidemia, unspecified; M19.90 Unspecified osteoarthritis, unspecified site; G25.81 Restless legs syndrome; E89.0 Postprocedural hypothyroidism; R74.01 Elevation of levels of liver transaminase levels; E66.9 Obesity, unspecified; D72.810 Lymphocytopenia; Z68.31 Body mass index [BMI] 31.0-31.9, adult; Z79.82 Long term (current) use of aspirin; Z79.899 Other long term (current) drug therapy; Z79.890 Hormone replacement therapy; Z90.710 Acquired absence of both cervix and uterus; Z98.890 Other specified postprocedural states; Z80.52 Family history of malignant neoplasm of bladder; Z82.49 Family history of ischemic heart disease and other diseases of the circulatory system; Z83.3 Family history of diabetes mellitus
CPT/HCPCS: 36410; 36415; 36556; 71045; 71275; 76937; 80048; 80053; 82728; 83605; 83615; 83735; 84145; 85025; 85379; 85610; 85730; 86140; 87040; 87324; 93005; 96360; 96361; 96372; 99285

== ENCOUNTER → 2020-06-22 | Outpatient (CLI) | payer MEDICAID ==
--- NOTE | 2020-06-22 13:35 | MM ---
Reason for exam: additional evaluation requested from prior study. Last mammogram was performed 7 years and 6 months ago. History: Family history of breast cancer in aunt at age 43. Physical Findings: Nurse Summary: 1cm nodule in the right breast at 10-11 o'clock (nurse db). MG Diagnostic Mammo w CAD RAY Bilateral CC and MLO view(s) were taken. Prior study comparison: December 10, 2012, bilateral digital screening mammo w/CAD. July 16, 2011, bilateral digital screening mammo w/CAD. There are scattered fibroglandular densities. There is chronic nodularity in the right breast. Palpable marker right upper outer quadrant. Global asymmetry left 2-3 o'clock. Associated calcifications appear heterogeneous and increased. These results were verbally communicated with the patient and result sheet given to the patient on 06/22/20. ASSESSMENT: Incomplete: need additional imaging evaluation, BI-RAD 0 RECOMMENDATION: Ultrasound of both breasts. (right palpable, left upper outer quadrant)
--- NOTE | 2020-06-22 13:38 | USB ---
Reason for exam: additional evaluation requested from abnormal screening. History: Family history of breast cancer in aunt at age 43. US Breast Limited BILAT Technologist: Daisy Molina Right limited breast ultrasound including focal area of concern, retroareolar and axilla demonstrates no cystic or solid lesion seen. Scanned 9-12 o'clock. Left limited breast ultrasound including focal area of concern, retroareolar and axilla demonstrates no cystic or solid lesion seen. Scanned 12-3 o'clock, dense patch of tissue noted corresponding to the mammographic global asymmetry. These results were verbally communicated with the patient and result sheet given to the patient on 06/22/20. ASSESSMENT: Suspicious, BI-RAD 4 RECOMMENDATION: Stereotactic core biopsy of the left breast. (calcifications) Called Dr. Ngo's office with mammographic findings and has scheduled an appointment for the patient for 08/04/20 at 8:[address] Kearns. Biopsy scheduled for 07/29/20 at 3:00. PRELIMINARY REPORT CALLED AND FAXED TO DR. KEARNS ON 06/22/20.
== END | disposition home or self-care (01) ==
LOC: RADMAMWWP 07:48
PROVIDERS: ATTEND Internal Medicine
DX: R92.8 Other abnormal and inconclusive findings on diagnostic imaging of breast (principal)
CPT/HCPCS: 77066

== ENCOUNTER → 2020-07-18 | Outpatient (CLI) | payer MEDICAID | END | disposition home or self-care (01) | LOC: LABWHC1 16:46 | PROVIDERS: ATTEND Internal Medicine | DX: Z20.822 Contact with and (suspected) exposure to COVID-19 (principal) | CPT/HCPCS: U0003; C9803; U0005 ==

== ENCOUNTER → 2020-07-29 | Outpatient (CLI) | payer MEDICAID ==
[2020-07-29 16:04] VITALS: BP 145/71; PULSE 70; RESP 16; TEMP 97.9
--- NOTE | 2020-07-29 16:13 | P.GSHP ---
History of Present Illness H&P Date: 07/29/20 Chief Complaint: abnormal left breast mammogram Saray is a 54 year old white female seen in consultation for Dr. Ngo regarding a mammographic abnormality noted in her left breast. Bilateral mammogram [place] [id number]. Scattered fibroglandular densities were noted. Calcifications were noted in the left breast at the 2 to 3 o'clock position which were increased and heterogeneous from prior studies. She had a bilateral ultrasound done which was negative for any suspicious lesions in either breast. The patient was recommended to undergo a stereotactic core biopsy of the left breast. She states she has felt some fullness in her right breast in the 11:30 to 12 o'clock position. It is uncomfortable for her and has not gone away. She does not have any pain or masses that she is noted in her left breast. She is not complaining of any nipple discharge or skin changes. She has not had any recent trauma or infection in the breast. Caffeine: pop and tea daily nicotine: none chocolate: twice a week hormones: none Family History: father: bladder cancer (smoker) Hormonal History: menarche: 11 1 stillborn, breast fed:no, age at first : 16 hysterectomy: 31 done for endometriosis, no cancer, left ovaries BCP: 2 months Surgical History: hysterectomy lipoma back of neck colon resection not cancer cardiac cath thyroid resection Medical History: restless leg syndrome palpitations high lipids low iron osteoporosis Social History: smoke: none alcohol: none drugs: none - Constitutional Constitutional: Reports sweats, Denies chills, Denies fever - EENT Eyes: denies blurred vision, denies pain Ears: deny: decreased hearing, tinnitus Ears, nose, mouth and throat: Denies headache, Denies sore throat - Breasts Breasts: bilateral: as per HPI - Cardiovascular Cardiovascular: Denies chest pain, Denies shortness of breath - Respiratory Respiratory: Denies cough, Denies 7 - Gastrointestinal Gastrointestinal: Reports as per HPI - Genitourinary (Female) Genitourinary: Denies dysuria, Denies hematuria - Menstruation Menstruation: Reports post hysterectomy - Musculoskeletal Musculoskeletal: Reports as per HPI - Integumentary Integumentary: Denies pruritus, Denies rash - Neurological Neurological: Denies numbness, Denies weakness - Psychiatric Psychiatric: Denies anxiety, Denies depression - Endocrine Comment: hypothyroid - Hematologic/Lymphatic Comment: none - Allergic/Immunologic Allergic/Immunologic: Reports as per HPI Past Medical History Past Medical History: Hyperlipidemia, Osteoarthritis (OA), Thyroid Disorder Additional Past Medical History / Comment(s): RLS., anemia, occasional "racing heart" ., states mass in colon/ hemicolectomy. History of Any Multi-Drug Resistant Organisms: None Reported Past Surgical History: Appendectomy, Heart Catheterization, Hysterectomy Additional Past Surgical History / Comment(s): partial thyroidectomy, fatty tumor on neck, R hemicolectomy. Past Anesthesia/Blood Transfusion Reactions: Postoperative Nausea & Vomiting (PONV) Past Psychological History: No Psychological Hx Reported Smoking Status: Never smoker Past Alcohol Use History: None Reported Past Drug Use History: None Reported - Past Family History Father Family Medical History: Cancer, Myocardial Infarction ([place]) Additional Family Medical History / Comment(s): Bladder CA, from [place]-CAB[place] Mother Family Medical History: Diabetes Mellitus, Hypertension Additional Family Medical History / Comment(s): [place] Son(s) Family Medical History: Diabetes Mellitus Sister(s) Family Medical History: Diabetes Mellitus, Hyperlipidemia Medications and Allergies Home Medications Medication Instructions Recorded Confirmed Type Gabapentin [Neurontin] 100 mg PO BID 08/17/15 07/25/20 History Levothyroxine Sodium [Synthroid] 137 mcg PO QAM 08/17/15 07/25/20 History Atorvastatin [Lipitor] 10 mg PO HS 07/05/17 07/25/20 History Aspirin 81 mg PO HS 08/13/17 07/25/20 History Ferrous Sulfate [Iron (65 MG 325 mg PO DAILY 08/13/17 07/25/20 History Elemental)] Baclofen [Lioresal] 10 mg PO HS 08/21/18 07/25/20 History Multivitamin [Multivitamins Adult 1 tab PO DAILY 08/21/18 07/25/20 History Gummies] Metoprolol Succinate (ER) [Toprol 25 mg PO DAILY 03/11/20 07/25/20 History XL] Acetaminophen Tab [Tylenol] 650 mg PO Q6HR PRN tab 03/17/20 07/25/20 Rx Ascorbic Acid [Vitamin C] 500 mg PO DAILY 30 Days #30 tab 03/17/20 07/25/20 Rx Cholecalciferol [Vitamin D3 (25 1,000 unit PO DAILY 30 Days #30 tab 03/17/20 07/25/20 Rx Mcg = 1000 Iu)] Zinc Sulfate [Orazinc] 220 mg PO DAILY 30 Days #30 cap 03/17/20 07/25/20 Rx Allergies Allergy/AdvReac Type Severity Reaction Status Date / Time No Known Allergies Allergy Verified 07/25/20 12:45 Surgical - Exam 31.3 - General no distress - Eyes normal ocular movement - ENT normal pinna, normal nares - Neck no masses, trachea midline - Respiratory normal expansion, normal respiratory effort, clear to auscultation - Cardiovascular Rhythm: regular Heart Sounds: normal: S1, S2 - Abdomen Abdomen: soft, non tender, no guarding, no rigid, no rebound - Integumentary normal turgor - Neurologic no disoriented, no combative - Musculoskeletal normal gait - Psychiatric oriented to time, oriented to person, oriented to place, speech is normal, memory intact breast exam: BRA: 3XL inspection: bilateral grade 2/3 ptosis Palpation: Right breast: Right breast slightly larger than left breast, multiple positional exam fibrocystic breast changes no dominant masses or nodules of concern Right axilla: No adenopathy of concern Left breast: Multi-positional exam fibrocystic changes, no dominant masses or nodules of concern Left axilla: No adenopathy of concern Particular attention was paid in the right breast at the 12:00 area in the upper outer quadrant region no discrete mass was noted. Results Mammogram and ultrasound results reviewed Assessment and Plan Assessment: Impression: 1. Asymmetry of the breast 2. Tenderness and fullness right breast upper outer quadrant as per patient nothing demonstrated on today's examination which would warrant interventional biopsy 3. Fiber cystic breast changes 4. Abnormal left breast mammogram Plan: 1. Encourage patient to decrease caffeine intake 2. Stereotactic core biopsy of the left breast 3. Close surveillance of the area of fullness in the right breast Cc: Dr. Gardner Risk and benefits of stereotactic core biopsy discussed with the patient and her . Risks include but are not limited to bleeding, infection, reaction to the anesthetic. They understand and wish to proceed.
== END ==
LOC: WWCWWP 15:05
PROVIDERS: ATTEND Surgery
DX: N60.11 Diffuse cystic mastopathy of right breast (principal); N60.12 Diffuse cystic mastopathy of left breast; R92.1 Mammographic calcification found on diagnostic imaging of breast; E78.5 Hyperlipidemia, unspecified; N64.89 Other specified disorders of breast; E03.9 Hypothyroidism, unspecified; M19.90 Unspecified osteoarthritis, unspecified site

== ENCOUNTER → 2020-08-04 | Day surgery (SDC) | payer MEDICAID ==
[2020-08-04 07:23] VITALS: RESP 16; TEMP 98.1
--- NOTE | 2020-08-04 08:55 | P.PCN ---
Date of Procedure: 08/04/20 Preoperative Diagnosis: Abnormal left breast mammogram Postoperative Diagnosis: Same Procedure(s) Performed: Stereotactic core biopsy left breast Anesthesia: local Surgeon: Shannon Kearns Pathology: other (breast tissue) Condition: stable Disposition: same day Indications for Procedure: Calcifications heterogeneous left breast 2 to 3 o'clock position increased in number Operative Findings: Fibrofatty breast tissue with a few calcifications Description of Procedure: The patient is a 54-year-old white female who was noted to have increased heterogeneous calcifications in the 2 to 3 o'clock position of the left breast. Stereotactic core biopsy was recommended. Risks and benefits of the procedure were discussed with the patient. She understood and wished to proceed. Alternatives such as watchful waiting or removal in the operating room were not recommended. The patient was brought to the stereotactic core biopsy room. She was positioned on the lobe. Table. A aircraft pneudraulics repairer film was obtained. The area of concern in the left breast was identified. A lateral to medial approach was utilized. The lesion was targeted. The breast was prepped using Betadine. Approximately 24 mL of 1% lidocaine was used to anesthetize the area of concern. The needle was driven to the correct coordinates. A 9-gauge vacuum-assisted core rotating biopsy needle was utilized. The needle was fired. Post-fire film was obtained and the needle was noted to be in the correct location. 12 core biopsy samples were obtained. Radiograph the specimen revealed several calcifications but there was concern that the area had not been more fully sampled. Additional samples were then obtained from the 6 to 9 o'clock position. Radiograph the specimen did not reveal more calcifications. The needle was driven slightly deeper and additional samples were obtained. In the additional samples another calcification was identified. Prior to getting additional samples proximally 6 mL more of 1% lidocaine was utilized. A secure marked top Marker was placed. The marker appeared to be in the correct location. There were residual calcifications in the breast. I discussed with the patient that depending on pathology results we may recommend a another attempt at stereo biopsy or needle local excisional biopsy of the area of concern. Patient tolerated procedure in stable condition. Specimen was sent to pathology. There was some concern that the area has been adequately sampled. We will await pathology results.
[2020-08-04 09:25] VITALS: BP 155/89; PULSE 65
--- NOTE | 2020-08-04 09:49 | MM ---
EXAMINATION TYPE: MG stereo VAD BX LT DATE OF EXAM: 08/04/2020 COMPARISON: Prior mammogram June 22, 2020 and older studies CLINICAL HISTORY: Abnormal mammogram TECHNIQUE: Stereotactic guided core biopsy of left breast. FINDINGS: The procedure of stereotactic guided core biopsy was explained to the patient. Benefits, alternatives, and risks were discussed. An informed consent was then obtained. The lateral pathway for biopsy was chosen. Shortness pathway was lateral or cranial approach. There were some superior vessels and thus lateral approach chosen. I performed the localization, then surgeon, Dr. Kearns performed the remainder of the procedure. A vacuum assisted biopsy gun was used to obtain multiple core samples. The patient tolerated the procedure well without any immediate complication. The patient was kept in the radiology department for short stay after the procedure and then discharged home in stable condition. Some targeted calcifications are identified in specimen mammogram. Post biopsy mammogram shows the clip to appear in satisfactory position relative to the targeted area of concern on the preprocedure images. Targeted clip along the lateral aspect of the group of heterogeneous calcifications IMPRESSION: SUCCESSFUL, UNCOMPLICATED STEREOTACTIC GUIDED CORE BIOPSY OF AREA OF CONCERN IN THE LEFT BREAST, FULL PATHOLOGY RESULTS TO FOLLOW. Intermediate index of suspicion noted at time of procedure. Pathology Results: Benign LEFT BREAST, STEREOTACTIC CORE BIOPSY: Fibrocystic changes including fibrosis, cysts, columnar cell change, adenosis, mild usual type ductal hyperplasia and calcifications. Recommendation Follow up mammogram of the left breast in 6 months. CARLOSD
== END ==
LOC: RADMAMWWP 07:11
PROVIDERS: ATTEND Surgery
DX: N62 Hypertrophy of breast (principal); N60.02 Solitary cyst of left breast; N60.32 Fibrosclerosis of left breast; R92.8 Other abnormal and inconclusive findings on diagnostic imaging of breast
CPT/HCPCS: 88305; 19081; A4648; J2001

== ENCOUNTER → 2020-08-11 | Outpatient (CLI) | payer MEDICAID ==
[2020-08-11 14:39] VITALS: BP 142/91; PULSE 86; RESP 18; TEMP 98.1
--- NOTE | 2020-08-11 15:03 | P.PN ---
Subjective Progress Note Date: 08/11/20 Principal diagnosis: Sterotactic core biopsy results left breast Saray is a 54-year-old white female status post stereotactic core biopsy of the left breast. Pathology revealed fibrocystic changes including fibrosis, cysts, columnar cell change, adenosis, mild usual type ductal hyperplasia and calcifications. She has tolerated the procedure without any difficulty. The specimen was reviewed with radiology and it is felt the collections representative tissue was obtained. Objective - Vital Signs Vital signs: Vital Signs Temp 98.1 F 08/11/20 14:37 Pulse 86 08/11/20 14:37 Resp 18 08/11/20 14:37 BP 142/91 08/11/20 14:37 Pulse Ox 99 08/11/20 14:37 Intake & Output 08/10/20 08/11/20 08/11/20 18:59 06:59 18:59 Weight 90.718 kg - Exam BMI 31.1 - Constitutional General appearance: Present: cooperative - EENT Eyes: Present: EOMI ENT: Present: hearing grossly normal - Neck Neck: Present: normal ROM - Respiratory Respiratory: bilateral: CTA - Cardiovascular Rhythm: regular Heart sounds: normal: S1, S2 - Integumentary Integumentary: Present: normal turgor - Musculoskeletal Musculoskeletal: Present: gait normal - Psychiatric Psychiatric: Present: A&O x's 3, appropriate affect, intact judgment & insight - Additional findings Additional findings: Breast examination: Left breast biopsy site clean and dry mild ecchymosis no evidence of any infection Assessment and Plan Assessment: Impression: 1. Status [place] [id number] pathology benign concordant Plan: 1. Repeat left breast mammogram and physician exam in 6 months CC: Dr. Ngo
== END ==
LOC: WWCWWP 08-04 06:54
PROVIDERS: ATTEND Surgery
DX: N60.92 Unspecified benign mammary dysplasia of left breast (principal)

== ENCOUNTER 2020-08-31 10:02 | Emergency (ER) | payer MEDICAID ==
[2020-08-31 10:07] VITALS: RESP 18; TEMP 97.4
[2020-08-31] MEDS ORDERED: MECLIZINE 12.5 MG TAB PO STA (12:05)
[2020-08-31] MEDS ORDERED: SODIUM CHLORIDE 0.9% 1,000 ML IV STA (12:05)
[2020-08-31 12:06] LABS: Basophils # (A) 0.1 k/uL (0-0.2); Basophils % (A) 1 %; Eosinophils # (A) 0.1 k/uL (0-0.7); Eosinophils % (A) 1 %; HCT 42.5 % (34.0-46.0); HGB 14.1 gm/dL (11.4-16.0); Lymphocytes % (A) 20 %; MCH 29.8 pg (25.0-35.0); MCHC 33.1 g/dL (31.0-37.0); MCV 90.1 fL (80.0-100.0); Monocytes # (A) 0.3 k/uL (0-1.0); Monocytes % (A) 3 %; Neutrophils # (A) 7.4 k/uL (1.3-7.7); Neutrophils % (A) 74 %; Platelet Count 261 k/uL (150-450); RBC 4.72 m/uL (3.80-5.40); RDW 13.7 % (11.5-15.5); WBC 10.1 k/uL (3.8-10.6)
[2020-08-31] MEDS ORDERED: METOCLOPRAMIDE 5 MG/ML 2 ML VIAL IVP STA (12:09)
[2020-08-31] MEDS ORDERED: DIAZEPAM 5 MG/ML 2 ML INJ IVP STA (12:09)
--- NOTE | 2020-08-31 12:15 | ED ---
General Adult HPI - General Chief complaint: Dizziness Stated complaint: dizziness Time Seen by Provider: 08/31/20 11:45 Source: patient, family Mode of arrival: ambulatory Limitations: no limitations - History of Present Illness Initial comments: Dictation was produced using [employer] dictation software. please excuse any grammatical, word or spelling errors. This patient was cared for during a federal and state declared state of emergency secondary to Covid 19 Chief Complaint: 54-year-old female with past medical history of vertigo presents emergency Department with vertiginous symptoms History of Present Illness: 54-year-old female she states that since yesterday she's been having symptoms of the room spinning. Patient has been diagnosed with vertigo in the past. Patient is prescribed by primary care physician some Antivert medication 25 mg by mouth. Patient states that she has the sensation of room spinning whenever she rapidly moves her head and turns her head to the left. Patient has any headache. She feels like her right ear is clogged. Patient has been having feelings of hot and cold chills and palpitations. She has no other complaints. No nausea or vomiting. The ROS documented in this emergency department record has been reviewed and confirmed by me. Those systems with pertinent positive or negative responses have been documented in the HPI. All other systems are other negative and/or noncontributory. PHYSICAL EXAM: General Impression: Alert and oriented x3, not in acute distress HEENT: Normocephalic atraumatic, extra-ocular movements intact, pupils equal and reactive to light bilaterally, mucous membranes moist. Cardiovascular: Heart regular rate and rhythm Chest: Able to complete full sentences, no retractions, no tachypnea Abdomen: abdomen soft, non-tender, non-distended, no organomegaly Musculoskeletal: Pulses present and equal in all extremities, no peripheral edema Motor: no focal deficits noted Neurological: CN II-XII grossly intact, no focal motor or sensory deficits noted , left-sided nystagmus that is fatigable, vertigo is reproduced with rapid head movements lying supine with head turned to the left. Skin: Intact with no visualized rashes Psych: Normal affect and mood ED course: 54-year-old female past medical history of vertigo presents to emergency Department with benign paroxysmal positional vertigo. Vital signs upon arrival are within acceptable limits. Laboratory evaluation obtained. CBC, metabolic panel, urinalysis is negative. Patient given vertigo cocktail. She is observed in emergency department for approximately 3 hours with significant improvement of symptoms. Patient given prescription for Antivert and Reglan. She is advised to follow-up with primary care physician she is given referral to ENT for outpatient management of vertigo. EKG interpretation: Ventricular rate 69, normal sinus rhythm, SC interval 140, QRS 86, QTC 428. No SC prolongation, no QTC prolongation, no ST or T-wave changes noted. EKG compared to 03/14/2020 showing no changes. Overall, this EKG is unremarkable - Related Data Home Medications Medication Instructions Recorded Confirmed Gabapentin [Neurontin] 100 mg PO HS 08/17/15 08/31/20 Levothyroxine Sodium [Synthroid] 137 mcg PO DAILY 08/17/15 08/31/20 Atorvastatin [Lipitor] 10 mg PO HS 07/05/17 08/31/20 Aspirin 81 mg PO HS 08/13/17 08/31/20 Ferrous Sulfate [Iron (65 MG 325 mg PO DAILY 08/13/17 08/31/20 Elemental)] Baclofen [Lioresal] 10 mg PO HS 08/21/18 08/31/20 Multivitamin [Multivitamins Adult 1 tab PO DAILY 08/21/18 08/31/20 Gummies] Metoprolol Succinate (ER) [Toprol 25 mg PO HS 03/11/20 08/31/20 XL] Ascorbic Acid [Vitamin C] 500 mg PO DAILY 07/29/20 08/31/20 Cholecalciferol [Vitamin D3 (25 1,000 unit PO DAILY 07/29/20 08/31/20 Mcg = 1000 Iu)] Zinc Sulfate [Orazinc] 30 mg PO DAILY 07/29/20 08/31/20 Amoxic-Pot Clav 875-125Mg 1 tab PO Q12HR 08/31/20 08/31/20 [Augmentin 875-125] Meclizine [Antivert] 25 mg PO TID PRN 08/31/20 08/31/20 Previous Rx's Medication Instructions Recorded Meclizine [Antivert] 50 mg PO TID PRN #15 tab 08/31/20 Metoclopramide [Reglan] 10 mg PO TID PRN #12 tab 08/31/20 Allergies Allergy/AdvReac Type Severity Reaction Status Date / Time No Known Allergies Allergy Verified 08/31/20 12:37 Review of Systems ROS Statement: Those systems with pertinent positive or pertinent negative responses have been documented in the HPI. ROS Other: All systems not noted in ROS Statement are negative. Past Medical History Past Medical History: Hyperlipidemia, Osteoarthritis (OA), Thyroid Disorder Additional Past Medical History / Comment(s): RLS., anemia, occasional "racing heart" ., states mass in colon/ hemicolectomy. History of Any Multi-Drug Resistant Organisms: None Reported Past Surgical History: Appendectomy, Heart Catheterization, Hysterectomy Additional Past Surgical History / Comment(s): partial thyroidectomy, fatty tumor on neck, R hemicolectomy. Past Anesthesia/Blood Transfusion Reactions: Postoperative Nausea & Vomiting (PONV) Past Psychological History: No Psychological Hx Reported Smoking Status: Never smoker Past Alcohol Use History: None Reported Past Drug Use History: None Reported - Past Family History Father Family Medical History: Cancer, Myocardial Infarction ([place]) Additional Family Medical History / Comment(s): Bladder CA, from [place]-CABG Mother Family Medical History: Diabetes Mellitus, Hypertension Additional Family Medical History / Comment(s): [place] Son(s) Family Medical History: Diabetes Mellitus Sister(s) Family Medical History: Diabetes Mellitus, Hyperlipidemia General Exam Limitations: no limitations Course Vital Signs 08/31/20 10:02 Temperature 97.4 F L Pulse Rate 79 Respiratory 18 Rate Blood Pressure 134/77 O2 Sat by Pulse 96 Oximetry Medical Decision Making - Lab Data Result diagrams: 08/31/20 11:56 08/31/20 11:56 Lab Results 08/31/20 08/31/20 08/31/20 Range/Units 11:56 11:56 11:56 WBC 10.1 (3.8-10.6) k/uL RBC 4.72 (3.80-5.40) m/uL Hgb 14.1 (11.4-16.0) gm/dL Hct 42.5 (34.0-46.0) % MCV 90.1 (80.0-100.0) fL MCH 29.8 (25.0-35.0) pg MCHC 33.1 (31.0-37.0) g/dL RDW 13.7 (11.5-15.5) % Plt Count 261 (150-450) k/uL MPV 8.0 Neutrophils % 74 % Lymphocytes % 20 % Monocytes % 3 % Eosinophils % 1 % Basophils % 1 % Neutrophils # 7.4 (1.3-7.7) k/uL Lymphocytes # 2.0 (1.0-4.8) k/uL Monocytes # 0.3 (0-1.0) k/uL Eosinophils # 0.1 (0-0.7) k/uL Basophils # 0.1 (0-0.2) k/uL Sodium 141 (137-145) mmol/L Potassium 4.6 (3.5-5.1) mmol/L Chloride 106 (98-107) mmol/L Carbon Dioxide 27 (22-30) mmol/L Anion Gap 8 mmol/L BUN 12 (7-17) mg/dL Creatinine 0.68 (0.52-1.04) mg/dL Est GFR (CKD-EPI)AfAm >90 (>60 ml/min/1.73 sqM) Est GFR (CKD-EPI)NonAf >90 (>60 ml/min/1.73 sqM) Glucose 98 (74-99) mg/dL Calcium 10.3 H (8.4-10.2) mg/dL Total Bilirubin 0.6 (0.2-1.3) mg/dL AST 38 H (14-36) U/L ALT 40 H (4-34) U/L Alkaline Phosphatase 110 (38-126) U/L Total Protein 7.7 (6.3-8.2) g/dL Albumin 4.9 (3.5-5.0) g/dL Urine Color Light Yellow Urine Appearance Clear (Clear) Urine pH 6.0 (5.0-8.0) Ur Specific [place] 1.010 (1.001-1.035) Urine Protein Negative (Negative) Urine Glucose (UA) Negative (Negative) Urine Ketones Negative (Negative) Urine Blood Negative (Negative) Urine Nitrite Negative (Negative) Urine Bilirubin Negative (Negative) Urine Urobilinogen <2.0 (<2.0) mg/dL Ur Leukocyte Esterase Negative (Negative) Disposition Clinical Impression: Vertigo Disposition: HOME SELF-CARE Condition: Good Instructions (If sedation given, give patient instructions): Dizziness (ED) Prescriptions: Meclizine [Antivert] 50 mg PO TID PRN #15 tab PRN Reason: dizziness Metoclopramide [Reglan] 10 mg PO TID PRN #12 tab PRN Reason: Vertigo Is patient prescribed a controlled substance at d/c from ED?: No Referrals: Tamela Ngo MD [Primary Care Provider] - 1-2 days Kenneth Jacobo MD [STAFF PHYSICIAN] - 1-2 days Time of Disposition: 13:28
[2020-08-31 12:19] LABS: ALT 40 U/L (4-34); AST 38 U/L (14-36); African American GFR (CKD) >90 (>60 ml/min/1.73 sqM); Albumin 4.9 g/dL (3.5-5.0); Alkaline Phosphatase 110 U/L (38-126); Anion Gap 8 mmol/L; Blood Urea Nitrogen 12 mg/dL (7-17); Calcium 10.3 mg/dL (8.4-10.2); Carbon Dioxide 27 mmol/L (22-30); Chloride 106 mmol/L (98-107); Glucose 98 mg/dL (74-99); Non-African American GFR(CKD) >90 (>60 ml/min/1.73 sqM); Potassium 4.6 mmol/L (3.5-5.1); Sodium 141 mmol/L (137-145); Total Bilirubin 0.6 mg/dL (0.2-1.3); Total Protein 7.7 g/dL (6.3-8.2)
[2020-08-31 12:30] LABS: Appearance,Urine Clear (Clear); Bilirubin,Urine Negative (Negative); Blood,Urine Negative (Negative); Color,Urine Light Yellow; Glucose,Urine (UA) Negative (Negative); Ketones,Urine Negative (Negative); Leukocyte Esterase,Urine Negative (Negative); Nitrite,Urine Negative (Negative); Protein,Urine Negative (Negative); Urobilinogen,Urine <2.0 mg/dL (<2.0)
[2020-08-31 13:36] VITALS: BP 130/79; PULSE 87
== END 2020-08-31 13:34 | disposition home or self-care (01) ==
LOC: EC 10:02
DX: H81.10 Benign paroxysmal vertigo, unspecified ear (principal); E78.5 Hyperlipidemia, unspecified; G25.81 Restless legs syndrome; M19.90 Unspecified osteoarthritis, unspecified site; Z79.82 Long term (current) use of aspirin; Z79.899 Other long term (current) drug therapy; Z82.49 Family history of ischemic heart disease and other diseases of the circulatory system; Z83.3 Family history of diabetes mellitus; Z83.49 Family history of other endocrine, nutritional and metabolic diseases
CPT/HCPCS: 36415; 93005; 80053; 85025; 81003; 99284; 96374; 96375; 96361; J2765; J3360

== ENCOUNTER → 2020-10-08 | Outpatient (CLI) | payer MEDICAID ==
[2020-10-08 17:09] LABS: Chol/HDL Ratio 3.73; LDL Cholesterol,Calculated 92.2 mg/dL (0.0-131.0); VLDL Calculation 57.8 mg/dL (5.00-40.00)
== END | disposition home or self-care (01) ==
LOC: LABWHC1 09:16
PROVIDERS: ATTEND Internal Medicine Interventional Cardiology
DX: E78.2 Mixed hyperlipidemia (principal)
CPT/HCPCS: 36415; 80061; 84450; 84460

== ENCOUNTER → 2021-03-22 | Outpatient (CLI) | payer MEDICAID ==
--- NOTE | 2021-03-23 10:21 | MM ---
Reason for exam: follow-up at short interval from prior study. Last mammogram was performed 9 months ago. History: Family history of breast cancer in aunt at age 43. Benign MG stereo VAD BX LT of the left breast, August 04, 2020. Physical Findings: Nurse did not find any significant physical abnormalities on exam. MG Diagnostic Mammo LT w CAD CC and MLO view(s) were taken of the left breast. Prior study comparison: June 22, 2020, bilateral MG diagnostic mammo w CAD RAY. There are scattered fibroglandular densities. Previous mammotome biopsy in the left breast. No significant new findings when compared with previous films. These results were verbally communicated with the patient and result sheet given to the patient on 03/22/21. ASSESSMENT: Benign, BI-RAD 2 RECOMMENDATION: Routine screening mammogram of both breasts in 3 months. Back on schedule for June 2021.
== END | disposition home or self-care (01) ==
LOC: RADMAMWWP 14:14
PROVIDERS: ATTEND Surgery
DX: R92.8 Other abnormal and inconclusive findings on diagnostic imaging of breast (principal)
CPT/HCPCS: 77065

== ENCOUNTER → 2021-03-30 | Outpatient (CLI) | payer MEDICAID ==
[2021-03-30 16:12] VITALS: BP 119/77; PULSE 71; RESP 18; TEMP 98.2
--- NOTE | 2021-03-30 16:19 | P.PN ---
Subjective Progress Note Date: 03/30/21 Saray is a 55 -year-old white female status post [place] [id number]. Pathology was benign[place] [id number]. Scattered fibroglandular densities were noted. Calcifications were noted in the left breast at the 2 to 3 o'clock position wh ich were increased and heterogeneous from prior studies. She had a bilateral ultrasound done which was negative for any suspicious lesions in either breast. The patient was recommended to undergo a stereotactic core biopsy of the left breast. Which was done. Pathology revealed fibrocystic changes. At this time the patient does not feel any new lumps masses or nodules of concern in either breast. Caffeine: pop and tea daily nicotine: none chocolate: twice a week hormones: none Family History: father: bladder cancer (smoker) Hormonal History: menarche: 11 1 stillborn, breast fed:no, age at first : 16 hysterectomy: 31 done for endometriosis, no cancer, left ovaries BCP: 2 months Surgical History: hysterectomy lipoma back of neck colon resection not cancer cardiac cath thyroid resection Medical History: restless leg syndrome palpitations high lipids low iron osteoporosis Social History: smoke: none alcohol: none drugs: none - Constitutional Constitutional: Reports night sweats improved, Denies chills, Denies fever - EENT Eyes: denies blurred vision, denies pain Ears: deny: decreased hearing, tinnitus Ears, nose, mouth and throat: Denies headache, Denies sore throat - Breasts Breasts: bilateral: as per HPI - Cardiovascular Cardiovascular: Denies chest pain, Denies shortness of breath - Respiratory Respiratory: Denies cough - Gastrointestinal Gastrointestinal: Reports as per HPI - Genitourinary (Female) Genitourinary: Denies dysuria, Denies hematuria - Menstruation Menstruation: Reports post hysterectomy - Musculoskeletal Musculoskeletal: Reports as per HPI - Integumentary Integumentary: Denies pruritus, Denies rash - Neurological Neurological: Denies numbness, Denies weakness - Psychiatric Psychiatric: Denies anxiety, Denies depression - Endocrine Comment: hypothyroid - Hematologic/Lymphatic Comment: none - Allergic/Immunologic Allergic/Immunologic: Reports as per HPI Objective - Constitutional General appearance: Present: cooperative - EENT Eyes: Present: EOMI ENT: Present: hearing grossly normal - Neck Neck: Present: normal ROM - Respiratory Respiratory: bilateral: CTA - Cardiovascular Rhythm: regular Heart sounds: normal: S1, S2 - Gastrointestinal General gastrointestinal: Present: soft - Integumentary Integumentary: Present: normal turgor - Musculoskeletal Musculoskeletal: Present: gait normal - Psychiatric Psychiatric: Present: A&O x's 3, appropriate affect, intact judgment & insight - Additional findings Additional findings: Breast Exam: BRA: 3XL inspection: grade 3 ptosis bilateral; rash over her anterior chest patient feels that this may be related to a perfume that she used palpation: right breast: Multi-positional exam fibrocystic changes no dominant masses or nodules of concern Right axilla: No adenopathy of concern Left breast: Multiple positional exam fibrocystic changes no dominant masses or nodules of concern Left axilla: No adenopathy of concern Assessment and Plan Assessment: Impression: restless leg syndrome palpitations high lipids low iron osteoporosis fibrocystic breast changes Recent left breast mammogram [id number] left breast benign BIRADS 2; this is in draft form at this time Plan: 1. Repeat bilateral mammogram in 6 months with physician exam at that time CC: Dr. Ngo
== END | disposition home or self-care (01) ==
LOC: WWCWWP 15:55
PROVIDERS: ATTEND Surgery
DX: Z53.9 Procedure and treatment not carried out, unspecified reason (principal)

== ENCOUNTER → 2021-07-03 | Outpatient (CLI) | payer MEDICAID ==
--- NOTE | 2021-07-05 09:19 | MM ---
Reason for exam: screening (asymptomatic). Last mammogram was performed 3 months ago. History: Patient is postmenopausal. Family history of breast cancer in aunt at age 43. Benign MG stereo VAD BX LT of the left breast, August 04, 2020. Physical Findings: A clinical breast exam by your physician is recommended on an annual basis and results should be correlated with mammographic findings. MG Screening Mammo w CAD Bilateral CC and MLO view(s) were taken. Prior study comparison: March 22, 2021, left breast MG diagnostic mammo LT w CAD. June 22, 2020, bilateral MG diagnostic mammo w CAD RAY. Focal asymmetry left breast, stable. No significant changes when compared with prior studies. ASSESSMENT: Benign, BI-RAD 2 RECOMMENDATION: Routine screening mammogram of both breasts in 1 year.
== END | disposition home or self-care (01) ==
LOC: RADMAMWWP 10:58
PROVIDERS: ATTEND Surgery
DX: Z12.31 Encounter for screening mammogram for malignant neoplasm of breast (principal)
CPT/HCPCS: 77067

== ENCOUNTER → 2021-07-13 | Outpatient (CLI) | payer MEDICAID ==
[2021-07-13 10:32] VITALS: BP 135/90; PULSE 71; RESP 17; TEMP 98.7
--- NOTE | 2021-07-13 10:41 | P.PN ---
Subjective Progress Note Date: 07/13/21 Principal diagnosis: Fibrocystic breast changes Saray is a 55 -year-old white female status post stero-tactic core biopsy of the left breast on . Pathology was benign. Bilateral mammogram had been performed on . Scattered fibroglandular densities were noted. C alcifications were noted in the left breast at the 2 to 3 o'clock position which were increased and heterogeneous from prior studies. She had a bilateral ultrasound done which was negative for any suspicious lesions in either breast. The patient was recommended to undergo a stereotactic core biopsy of the left breast. Which was done. Pathology revealed fibrocystic changes. She had a repeat left breast mammogram on 03-22-22 which was benign BIRAD 2. She had a bilateral mammogram on 07-03-21; stable focal asymmetry in the left breast. No lesions of concern in the right breast. This was benign BIRADS 2. At this time the patient does not feel any new lumps masses or nodules of concern in either breast. Caffeine: pop and tea daily nicotine: none chocolate: twice a week hormones: none Family History: father: bladder cancer (smoker) Hormonal History: menarche: 11 1 stillborn, breast fed:no, age at first : 16 hysterectomy: 31 done for endometriosis, no cancer, left ovaries BCP: 2 months Surgical History: hysterectomy lipoma back of neck colon resection not cancer cardiac cath thyroid resection Medical History: restless leg syndrome palpitations high lipids low iron osteoporosis Social History: smoke: none alcohol: none drugs: none - Constitutional Constitutional: Reports night sweats improved, Denies chills, Denies fever - EENT Eyes: denies blurred vision, denies pain Ears: deny: decreased hearing, tinnitus Ears, nose, mouth and throat: Denies headache, Denies sore throat - Breasts Breasts: bilateral: as per HPI - Cardiovascular Cardiovascular: Denies chest pain, Denies shortness of breath - Respiratory Respiratory: Denies cough - Gastrointestinal Gastrointestinal: Reports as per HPI - Genitourinary (Female) Genitourinary: Denies dysuria, Denies hematuria - Menstruation Menstruation: Reports post hysterectomy - Musculoskeletal Musculoskeletal: Reports as per HPI - Integumentary Integumentary: Denies pruritus, Denies rash - Neurological Neurological: Denies numbness, Denies weakness - Psychiatric Psychiatric: Denies anxiety, Denies depression - Endocrine Comment: hypothyroid - Hematologic/Lymphatic Comment: none - Allergic/Immunologic Allergic/Immunologic: Reports as per HPI Objective - Constitutional General appearance: Present: cooperative - EENT Eyes: Present: EOMI ENT: Present: hearing grossly normal - Neck Neck: Present: normal ROM - Respiratory Respiratory: bilateral: CTA - Cardiovascular Rhythm: regular Heart sounds: normal: S1, S2 - Integumentary Integumentary: Present: normal turgor - Musculoskeletal Musculoskeletal: Present: gait normal - Psychiatric Psychiatric: Present: A&O x's 3, appropriate affect, intact judgment & insight - Additional findings Additional findings: Breast Exam: BR: 3X inspection: Bilateral grade 2 ptosis; beginning of fungal infection under right breast Palpation: Right breast: Multi-positional exam no dominant masses or nodules of concern Right axilla: No adenopathy of concern Left breast: Multiple positional exam no dominant masses or nodules of concern Left axilla: No adenopathy of concern Assessment and Plan Assessment: Impression: Fibrocystic breast changes Bilateral mammogram stable in draft form this was personally reviewed Plan: 1. Bilateral mammogram in 1 year physician exam in 1 year CC: Dr. Ngo
== END | disposition home or self-care (01) ==
LOC: WWCWWP 09:45
PROVIDERS: ATTEND Surgery
DX: Z53.9 Procedure and treatment not carried out, unspecified reason (principal)

== ENCOUNTER 2021-08-01 08:07 | Emergency (ER) | payer MEDICAID ==
[2021-08-01 08:13] VITALS: TEMP 97.9
[2021-08-01] MEDS ORDERED: SODIUM CHLORIDE 0.9% 1,000 ML IV STA (08:27)
[2021-08-01] MEDS ORDERED: DEXAMETHASONE SOD PHOSPHATE 10 MG/ML 1 ML VIAL IV STA (08:28)
--- NOTE | 2021-08-01 08:31 | ED ---
General Adult HPI - General Chief complaint: Upper Respiratory Infection Stated complaint: Covid+/Chest Pain Time Seen by Provider: 08/01/21 08:12 Source: patient, RN notes reviewed, old records reviewed Mode of arrival: ambulatory Limitations: no limitations - History of Present Illness Initial comments: 55-year-old female presenting for evaluation of cough, sore throat, headache. Patient tested positive for coronavirus about 6 days prior. She had been vaccinated and had previously been infected with coronavirus about 2 years ago. Patient developed chest pain and increased dyspnea. This prompted her to come to the emergency department. She has pain with deep inspiration. She has no previous history of DVT or PE. She states she is otherwise healthy. - Related Data Home Medications Medication Instructions Recorded Confirmed Gabapentin [Neurontin] 100 mg PO HS 08/17/15 07/13/21 Levothyroxine Sodium [Synthroid] 137 mcg PO DAILY 08/17/15 07/13/21 Atorvastatin [Lipitor] 10 mg PO HS 07/05/17 07/13/21 Aspirin 81 mg PO HS 08/13/17 07/13/21 Ferrous Sulfate [Iron (65 MG 325 mg PO DAILY 08/13/17 07/13/21 Elemental)] Baclofen [Lioresal] 10 mg PO HS 08/21/18 07/13/21 Multivitamin [Multivitamins Adult 1 tab PO DAILY 08/21/18 07/13/21 Gummies] Metoprolol Succinate (ER) [Toprol 25 mg PO HS 03/11/20 07/13/21 XL] Previous Rx's Medication Instructions Recorded Dexamethasone [Decadron] 6 mg PO DAILY #5 tablet 08/01/21 Allergies Allergy/AdvReac Type Severity Reaction Status Date / Time No Known Allergies Allergy Verified 08/01/21 08:13 Review of Systems ROS Statement: Those systems with pertinent positive or pertinent negative responses have been documented in the HPI. ROS Other: All systems not noted in ROS Statement are negative. Past Medical History Past Medical History: Hyperlipidemia, Osteoarthritis (OA), Thyroid Disorder Additional Past Medical History / Comment(s): RLS., anemia, occasional "racing heart" ., states mass in colon/ hemicolectomy. History of Any Multi-Drug Resistant Organisms: None Reported Past Surgical History: Appendectomy, Heart Catheterization, Hysterectomy Additional Past Surgical History / Comment(s): partial thyroidectomy, fatty tumor on neck, R hemicolectomy. Past Anesthesia/Blood Transfusion Reactions: Postoperative Nausea & Vomiting (PONV) Past Psychological History: No Psychological Hx Reported Smoking Status: Never smoker Past Alcohol Use History: None Reported Past Drug Use History: None Reported - Past Family History Father Family Medical History: Cancer, Myocardial Infarction ([place]) Additional Family Medical History / Comment(s): Bladder CA, from [place]-CABG Mother Family Medical History: Diabetes Mellitus, Hypertension Additional Family Medical History / Comment(s): [place] Son(s) Family Medical History: Diabetes Mellitus Sister(s) Family Medical History: Diabetes Mellitus, Hyperlipidemia General Exam Limitations: no limitations General appearance: alert, in no apparent distress Head exam: Present: atraumatic, normocephalic Eye exam: Present: normal appearance, PERRL ENT exam: Present: normal exam Neck exam: Present: normal inspection. Absent: tenderness, meningismus Respiratory exam: Present: normal lung sounds bilaterally. Absent: respiratory distress, wheezes Cardiovascular Exam: Present: regular rate, normal rhythm GI/Abdominal exam: Present: soft. Absent: distended, tenderness, guarding Extremities exam: Present: normal inspection, normal capillary refill. Absent: pedal edema, calf tenderness Neurological exam: Present: alert, oriented X3, CN II-XII intact. Absent: motor sensory deficit Psychiatric exam: Present: normal affect, normal mood Skin exam: Present: warm, dry, intact. Absent: cyanosis, diaphoretic Course Vital Signs 08/01/21 08/01/21 08/01/21 08:09 09:15 10:05 Temperature 97.9 F Pulse Rate 62 53 L Respiratory 18 20 18 Rate Blood Pressure 170/90 149/90 O2 Sat by Pulse 97 99 Oximetry EKG Findings - EKG Comments: EKG Findings:: EKG: Sinus bradycardia rate of 57, NH interval 140, QRS duration 90, QTC 423, no ST segment elevation. Medical Decision Making - Medical Decision Making 55-year-old female with coronavirus. Patient well-appearing, no respiratory distress. Chest x-ray clear. Laboratory testing shows some leukocytosis but is otherwise unremarkable including negative d-dimer and negative troponin. She is feeling better on reevaluation. She did qualify for monoclonal antibodies and receive these in the emergency department as well as Decadron. She will follow-up with her primary care physician. - Lab Data Result diagrams: 08/01/21 08:47 08/01/21 08:47 Lab Results 08/01/21 08/01/21 08/01/21 Range/Units 08:47 08:47 08:47 WBC 15.1 H (3.8-10.6) k/uL RBC 4.91 (3.80-5.40) m/uL Hgb 14.6 (11.4-16.0) gm/dL Hct 43.9 (34.0-46.0) % MCV 89.5 (80.0-100.0) fL MCH 29.6 (25.0-35.0) pg MCHC 33.1 (31.0-37.0) g/dL RDW 13.0 (11.5-15.5) % Plt Count 292 (150-450) k/uL MPV 8.4 Neutrophils % 80 % Lymphocytes % 13 % Monocytes % 5 % Eosinophils % 1 % Basophils % 1 % Neutrophils # 12.0 H (1.3-7.7) k/uL Lymphocytes # 2.0 (1.0-4.8) k/uL Monocytes # 0.7 (0-1.0) k/uL Eosinophils # 0.1 (0-0.7) k/uL Basophils # 0.1 (0-0.2) k/uL PT (9.0-12.0) sec INR (<1.2) APTT (22.0-30.0) sec D-Dimer (<0.60) mg/L FEU Sodium 136 L (137-145) mmol/L Potassium 4.4 (3.5-5.1) mmol/L Chloride 101 (98-107) mmol/L Carbon Dioxide 29 (22-30) mmol/L Anion Gap 6 mmol/L BUN 21 H (7-17) mg/dL Creatinine 0.67 (0.52-1.04) mg/dL Est GFR (CKD-EPI)AfAm >90 (>60 ml/min/1.73 sqM) Est GFR (CKD-EPI)NonAf >90 (>60 ml/min/1.73 sqM) Glucose 93 (74-99) mg/dL Calcium 9.6 (8.4-10.2) mg/dL Magnesium 2.1 (1.6-2.3) mg/dL Total Bilirubin 0.8 (0.2-1.3) mg/dL AST 20 (14-36) U/L ALT 26 (4-34) U/L Alkaline Phosphatase 79 (38-126) U/L Troponin I <0.012 (0.000-0.034) ng/mL Total Protein 7.0 (6.3-8.2) g/dL Albumin 4.1 (3.5-5.0) g/dL Coronavirus (PCR) (Not Detectd) 08/01/21 08/01/21 Range/Units 08:48 09:25 WBC (3.8-10.6) k/uL RBC (3.80-5.40) m/uL Hgb (11.4-16.0) gm/dL Hct (34.0-46.0) % MCV (80.0-100.0) fL MCH (25.0-35.0) pg MCHC (31.0-37.0) g/dL RDW (11.5-15.5) % Plt Count (150-450) k/uL MPV Neutrophils % % Lymphocytes % % Monocytes % % Eosinophils % % Basophils % % Neutrophils # (1.3-7.7) k/uL Lymphocytes # (1.0-4.8) k/uL Monocytes # (0-1.0) k/uL Eosinophils # (0-0.7) k/uL Basophils # (0-0.2) k/uL PT 10.2 (9.0-12.0) sec INR 0.9 (<1.2) APTT 21.6 L (22.0-30.0) sec D-Dimer 0.23 (<0.60) mg/L FEU Sodium (137-145) mmol/L Potassium (3.5-5.1) mmol/L Chloride (98-107) mmol/L Carbon Dioxide (22-30) mmol/L Anion Gap mmol/L BUN (7-17) mg/dL Creatinine (0.52-1.04) mg/dL Est GFR (CKD-EPI)AfAm (>60 ml/min/1.73 sqM) Est GFR (CKD-EPI)NonAf (>60 ml/min/1.73 sqM) Glucose (74-99) mg/dL Calcium (8.4-10.2) mg/dL Magnesium (1.6-2.3) mg/dL Total Bilirubin (0.2-1.3) mg/dL AST (14-36) U/L ALT (4-34) U/L Alkaline Phosphatase (38-126) U/L Troponin I (0.000-0.034) ng/mL Total Protein (6.3-8.2) g/dL Albumin (3.5-5.0) g/dL Coronavirus (PCR) Detected A (Not Detectd) Disposition Clinical Impression: COVID-19 Disposition: HOME SELF-CARE Condition: Fair Instructions (If sedation given, give patient instructions): COVID-19 (Coronavirus Disease 2019) (ED) Prescriptions: Dexamethasone [Decadron] 6 mg PO DAILY #5 tablet Is patient prescribed a controlled substance at d/c from ED?: No Referrals: Tamela Ngo MD [Primary Care Provider] - 1-2 days Time of Disposition: 10:20
[2021-08-01 08:51] LABS: Basophils # (A) 0.1 k/uL (0-0.2); Basophils % (A) 1 %; Eosinophils # (A) 0.1 k/uL (0-0.7); Eosinophils % (A) 1 %; HCT 43.9 % (34.0-46.0); HGB 14.6 gm/dL (11.4-16.0); Lymphocytes % (A) 13 %; MCH 29.6 pg (25.0-35.0); MCHC 33.1 g/dL (31.0-37.0); MCV 89.5 fL (80.0-100.0); Mean Platelet Volume 8.4; Monocytes # (A) 0.7 k/uL (0-1.0); Monocytes % (A) 5 %; Neutrophils % (A) 80 %; Platelet Count 292 k/uL (150-450); RBC 4.91 m/uL (3.80-5.40); WBC 15.1 k/uL (3.8-10.6)
[2021-08-01 09:05] LABS: ALT 26 U/L (4-34); AST 20 U/L (14-36); African American GFR (CKD) >90 (>60 ml/min/1.73 sqM); Albumin 4.1 g/dL (3.5-5.0); Alkaline Phosphatase 79 U/L (38-126); Anion Gap 6 mmol/L; Blood Urea Nitrogen 21 mg/dL (7-17); Calcium 9.6 mg/dL (8.4-10.2); Carbon Dioxide 29 mmol/L (22-30); Chloride 101 mmol/L (98-107); Glucose 93 mg/dL (74-99); Magnesium 2.1 mg/dL (1.6-2.3); Non-African American GFR(CKD) >90 (>60 ml/min/1.73 sqM); Potassium 4.4 mmol/L (3.5-5.1); Sodium 136 mmol/L (137-145); Total Bilirubin 0.8 mg/dL (0.2-1.3)
--- NOTE | 2021-08-01 09:07 | XR ---
EXAMINATION TYPE: XR chest 1V portable DATE OF EXAM: 08/01/2021 COMPARISON: 03/16/2020 HISTORY: Chest pain TECHNIQUE: Single frontal view of the chest is obtained. FINDINGS: Heart size prominent. There is no consolidation. Arthropathy of the shoulders. No overt fa ilure or pneumothorax. IMPRESSION: No acute process
[2021-08-01] MEDS ORDERED: BEBTELOVIMAB (EUA) 175 MG/2 ML VIAL IV ONE (09:45)
[2021-08-01 09:48] LABS: INR 0.9 (<1.2); Prothrombin Time 10.2 sec (9.0-12.0)
[2021-08-01 10:11] VITALS: RESP 18
[2021-08-01 10:13] LABS: Partial Thromboplastin Time 21.6 sec (22.0-30.0)
[2021-08-01 11:17] VITALS: BP 120/77; PULSE 59
== END 2021-08-01 11:17 | disposition home or self-care (01) ==
LOC: EC 08:07
DX: U07.1 COVID-19 (principal); E07.9 Disorder of thyroid, unspecified; Z79.899 Other long term (current) drug therapy; Z82.49 Family history of ischemic heart disease and other diseases of the circulatory system; Z20.822 Contact with and (suspected) exposure to COVID-19
CPT/HCPCS: 36415; 93005; 85379; 80053; 83735; 84484; 85025; 85610; 85730; 87635; 71045; 99285; 96374; J1100; Q0222

== ENCOUNTER → 2021-09-25 | Outpatient (CLI) | payer MEDICAID ==
--- NOTE | 2021-09-25 10:05 | CA ---
Transthoracic Echo Report Name: Saray Merrill Age: 55 Gender: F : 1965 Exam Date: 09/25/2021 08:34 Exam Location: [facility] Ht (in): 67 Wt (lb): 200 Ordering Physician: Lul Jolly MD ([id number]) Attending/Referring Phys: Lead Fire Protection Engineer Concepción Keller RDCS Procedure CPT: Indications: I50.33 CHF I73.9 PVD Cardiac Hx: Fm hx of heart disease. Technical Quality: Good Contrast 1: Total Dose (mL): Contrast 2: Total Dose (mL): MEASUREMENTS (Male / Female) Normal Values 2D ECHO LV Diastolic Diameter PLAX 3.8 cm 4.2 - 5.9 / 3.9 - 5.3 cm LV Systolic Diameter PLAX 1.4 cm IVS Diastolic Thickness 1.3 cm 0.6 - 1.0 / 0.6 - 0.9 cm LVPW Diastolic Thickness 1.1 cm 0.6 - 1.0 / 0.6 - 0.9 cm LV Relative Wall Thickness 0.6 LA Volume 54.7 cm??? 18 - 58 / 22 - 52 cm??? M-MODE Aortic Root Diameter MM 2.6 cm LA Systolic Diameter MM 3.9 cm LA Ao Ratio MM 1.5 MV E Point Septal Separation 1.2 cm AV Cusp Separation MM 1.8 cm DOPPLER AV Peak Velocity 136.1 cm/s AV Peak Gradient 7.4 mmHg MV Area PHT 3.6 cm??? MR Peak Velocity 151.3 cm/s MR Peak Gradient 9.2 mmHg Mitral E Point Velocity 100.7 cm/s Mitral A Point Velocity 43.1 cm/s Mitral E to A Ratio 2.3 MV Deceleration Time 209.4 ms MV E' Velocity 10.1 cm/s Mitral E to MV E' Ratio 10.0 TR Peak Velocity 177.8 cm/s TR Peak Gradient 12.6 mmHg Right Ventricular Systolic Press 17.6 mmHg FINDINGS Left Ventricle Mildly increased septal wall thickness. Mildly increased posterior wall thickness. Left ventricular ejection fraction is estimated at 55-60 %. Left ventricular cavity size normal. Right Ventricle The right ventricle is normal in size and function. Right Atrium The right atrium is normal in size. Left Atrium Mildly increased left atrial volume. Mitral Valve Structurally normal mitral valve without significant stenosis or prolapse. There is trace mitral regurgitation. Aortic Valve Structurally normal aortic valve without significant sclerosis or stenosis. There is no aortic regurgitation. Tricuspid Valve Structurally normal tricuspid valve without significant stenosis. Pulmonary artery systolic pressure is normal. Trace tricuspid regurgitation. Pulmonic Valve Structurally normal pulmonic valve without significant stenosis. There is no pulmonic regurgitation. Pericardium Normal pericardium without effusion. Aorta Normal aortic root dimension. CONCLUSIONS Normal LV size and systolic function with concentric LVH. No significant abnormality on Doppler exam. No pericardial effusion Previewed by: Dr. Maykel Leram MD (Electronically Signed) Final Date: 25 September 2021 10:04
== END | disposition home or self-care (01) ==
LOC: RADECHMAIN 08:30
PROVIDERS: ATTEND Internal Medicine Interventional Cardiology
DX: I50.33 Acute on chronic diastolic (congestive) heart failure (principal); I73.9 Peripheral vascular disease, unspecified
CPT/HCPCS: 93306; 93922

== ENCOUNTER → 2021-11-16 | Outpatient (CLI) | payer MEDICAID | END | disposition home or self-care (01) | LOC: LABWHC1 10:47 | PROVIDERS: ATTEND Psychiatry & Neurology Neurology | DX: G60.9 Hereditary and idiopathic neuropathy, unspecified (principal) | CPT/HCPCS: 36415; 82607 ==

== ENCOUNTER 2021-11-27 12:57 | Day surgery (SDC) | payer MEDICAID ==
[~2021-11-27 12:57] MED LIST changes: -DEXAMETHASONE SOD PHOSPHATE 10 MG/ML 1 ML VIAL IV ONE; -HEPARIN SODIUM,PORCINE 5,000 UNIT/ML 1 ML VIAL SQ ONE; +LACTATED RINGERS 1,000 ML IV SCH; -MIDAZOLAM 2 MG/2 ML VIAL IV PRN; -ONDANSETRON 4 MG/2 ML VIAL IVP ONE; -SCOPOLAMINE 1.5MG/72HR PATCH TRANSDERM ONE; -ceFAZolin IN SWFI 2 GM/20 ML SYRINGE IVP ONE; -metroNIDAZOLE-NS PMX 500 MG in SALINE 1 100ML.BAG IVPB ONE
[2021-11-27 13:25] VITALS: TEMP 97.8
[2021-11-27] MEDS ORDERED: LIDOCAINE 2% INJ 20 MG/ML (2 ML VIAL) ONE (14:00)
[2021-11-27] MEDS ORDERED: PROPOFOL 10 MG/ML 20 ML VIAL IV ONE (14:00)
--- NOTE | 2021-11-27 14:35 | P.PCN ---
Date of Procedure: 11/27/21 Preoperative Diagnosis: Colon cancer screening, history of colon polyps, nausea Postoperative Diagnosis: Colon cancer screening, first history of colon polyps, nausea, gastritis, diverticulosis, colon polyps Procedure(s) Performed: EGD with biopsy, colonoscopy with polypectomy Anesthesia: MAC Surgeon: Claudia Gatica Condition: stable Disposition: PACU Description of Procedure: Patient presents for colon cancer screening. She also has some nausea or quadrant pain. Patient's taken to the endoscopy suite were gastroscope is passe d per mouth to the third and fourth portions of the duodenum. Pharynx is unremarkable. The esophagus is without evidence of esophagitis or mass lesion. GE junction is without inflammatory change. She has some mild gastritis in the antrum and cold biopsies were obtained. Otherwise the stomach, pylorus and duodenum are without evidence of polyp, mass lesion or other mucosal abnormality. She is then repositioned in a colonoscope is passed per rectum to the anastomosis. The anastomosis is widely patent. She has several small polyps that are round 4 mm in size. There is 1 in the proximal transverse colon biopsied and destroyed with hot biopsy forceps. In the descending colon biopsied and destroyed with hot biopsy forceps and another one at 60 centimeters biopsied and destroyed with hot biopsy forceps. There are a few diverticuli noted in the sigmoid colon. The colon is otherwise without evidence of mass lesion, ulcer, stricture or other mucosal abnormality. No significant hemorrhoidal disease was seen on retroflexion of the scope. She tolerated the procedure without difficulty and is taken to recovery room in satisfactory condition. We'll call with report of the biopsies. Likely repeat colonoscopy in 5 years. Plan - Discharge Summary Discharge Rx Participant: No New Discharge Prescriptions: No Action Levothyroxine Sodium [Synthroid] 137 mcg PO DAILY Atorvastatin [Lipitor] 10 mg PO HS Ferrous Sulfate [Iron (65 MG Elemental)] 325 mg PO DAILY Multivitamin [Multivitamins Adult Gummies] 1 tab PO DAILY Baclofen [Lioresal] 10 mg PO HS Metoprolol Succinate (ER) [Toprol XL] 25 mg PO HS Cyanocobalamin (Vitamin B-12) [Vitamin B-12] 1,000 mcg PO DAILY Discharge Medication List Levothyroxine Sodium [Synthroid] 137 mcg PO DAILY 08/17/15 [History] Atorvastatin [Lipitor] 10 mg PO HS 07/05/17 [History] Ferrous Sulfate [Iron (65 MG Elemental)] 325 mg PO DAILY 08/13/17 [History] Baclofen [Lioresal] 10 mg PO HS 08/21/18 [History] Multivitamin [Multivitamins Adult Gummies] 1 tab PO DAILY 08/21/18 [History] Metoprolol Succinate (ER) [Toprol XL] 25 mg PO HS 03/11/20 [History] Cyanocobalamin (Vitamin B-12) [Vitamin B-12] 1,000 mcg PO DAILY 11/23/21 [History] Discharge Disposition: HOME SELF-CARE
[2021-11-27 14:54] VITALS: BP 149/89; PULSE 77; RESP 15
== END 2021-11-27 15:16 | disposition home or self-care (01) ==
LOC: ORWHC2ENDO 12:57
PROVIDERS: ATTEND Surgery
DX: Z12.11 Encounter for screening for malignant neoplasm of colon (principal); D12.4 Benign neoplasm of descending colon; D12.3 Benign neoplasm of transverse colon; K57.30 Diverticulosis of large intestine without perforation or abscess without bleeding; K29.50 Unspecified chronic gastritis without bleeding; Z86.010 Personal history of colon polyps; I10 Essential (primary) hypertension; E78.5 Hyperlipidemia, unspecified; E03.9 Hypothyroidism, unspecified; M19.90 Unspecified osteoarthritis, unspecified site; D64.9 Anemia, unspecified; G25.81 Restless legs syndrome; Z79.890 Hormone replacement therapy; Z79.899 Other long term (current) drug therapy; Z90.49 Acquired absence of other specified parts of digestive tract; E78.00 Pure hypercholesterolemia, unspecified; Z90.710 Acquired absence of both cervix and uterus; Z80.52 Family history of malignant neoplasm of bladder
CPT/HCPCS: 88305; 45384; 43239; J2704; J2001

== ENCOUNTER → 2022-03-03 | Outpatient (CLI) | payer MEDICAID ==
[2022-03-03 12:45] LABS: Basophils # (A) 0.06 X 10*3/uL (0.00-0.10); Basophils % (A) 0.8 %; Eosinophils # (A) 0.15 X 10*3/uL (0.04-0.35); HCT 40.2 % (37.2-46.3); HGB 13.1 g/dL (12.0-15.0); Immature Grans, Automated 0.3 %; Lymphocytes # (A) 2.22 X 10*3/uL (0.90-5.00); Lymphocytes % (A) 29.2 %; MCH 29.2 pg (27.0-32.0); MCHC 32.6 g/dL (32.0-37.0); MCV 89.7 fL (80.0-97.0); Monocytes # (A) 0.44 X 10*3/uL (0.20-1.00); Monocytes % (A) 5.8 %; NRBC Per 100 WBC 0 /100 WBCS (0.0-0.0); Neutrophils # (A) 4.71 X 10*3/uL (1.80-7.70); Neutrophils % (A) 61.9 %; Platelet Count 235 X 10*3/uL (140-440); RBC 4.48 X 10*6/uL (4.10-5.20); RDW 13.6 % (11.5-14.5)
[2022-03-03 18:10] LABS: BUN/Creat Ratio 14.37 Ratio (12.00-20.00); Chol/HDL Ratio 3.88 Ratio; Globulin 2.1 g/dL (1.6-3.3); LDL Cholesterol,Calculated 83.2 mg/dL (0.0-131.0)
[2022-03-03 18:11] LABS: ALT 47 U/L (8-44); AST 37 U/L (13-35); African American GFR (CKD) 110.9 (60.0-200.0); Albumin 4.4 g/dL (3.8-4.9); Alkaline Phosphatase 104 U/L (41-126); Blood Urea Nitrogen 10.1 mg/dL (9.0-27.0); Calcium 9.6 mg/dL (8.7-10.3); Carbon Dioxide 25.2 mmol/L (20.0-27.5); Chloride 104 mmol/L (96-109); Glucose 90 mg/dL (70-110); Non-African American GFR(CKD) 95.7 (60.0-200.0); Potassium 4.3 mmol/L (3.5-5.5); Sodium 143 mmol/L (135-145); Total Protein 6.5 g/dL (6.2-8.2)
== END | disposition home or self-care (01) ==
LOC: LABWHC1 03-02 08:35
PROVIDERS: ATTEND Internal Medicine Geriatric Medicine
DX: E78.2 Mixed hyperlipidemia (principal); E03.9 Hypothyroidism, unspecified; D64.9 Anemia, unspecified
CPT/HCPCS: 36415; 80053; 80061; 82607; 82746; 84439; 84443; 85025

== ENCOUNTER → 2022-07-09 | Outpatient (CLI) | payer MEDICAID ==
--- NOTE | 2022-07-09 13:24 | MM ---
Reason for Exam: Clinical finding. Last screening mammogram was performed 12 month(s) ago. Indicated Problems: Palpable abnormality of the right side. Patient History: Menarche at age 11. First Full-Term at age 16. Hysterectomy at age 32. Postmenopausal. 08/04/2020, Benign Core Biopsy on the left side. Maternal aunt had breast cancer, age 43. Risk Values: Zeny 5 year model risk: 1.1%. NCI Lifetime model risk: 6.7%. Prior Study Comparison: 12/10/2012 Bilateral Screening Mammogram, [facility]. 06/22/2020 Bilateral Diagnostic Mammogram, [facility]. 06/22/2020 Bilateral Diagnostic Ultrasound, [facility]. 07/03/2021 Bilateral Screening Mammogram, [facility]. Tissue Density: There are scattered fibroglandular densities. Findings: Analyzed By CAD. No evidence for discrete mass within either breast or at the site of clinical concern right breast. Precautionary ultrasound of the right breast palpable abnormality is advised. Stable benign calcifications seen. Overall Assessment: Incomplete: need additional imaging evaluation, BI-RAD 0 Management: Diagnostic Breast Ultrasound of the right breast. A clinical breast exam by your physician is recommended on an annual basis and results should be correlated with mammographic findings. This exam should not preclude additional follow-up of suspicious palpable abnormalities. Results were given to the patient verbally at the time of exam. Electronically signed and approved by: Doug Patel M.D. Radiologis
--- NOTE | 2022-07-09 13:56 | USB ---
Reason for Exam: Clinical finding. Patient History: Menarche at age 11. First Full-Term at age 16. Hysterectomy at age 32. Postmenopausal. 08/04/2020, Benign Core Biopsy on the left side. Maternal aunt had breast cancer, age 43. Risk Values: Zeny 5 year model risk: 1.1%. NCI Lifetime model risk: 6.7%. Technique: Method: Targeted. Patient Position: Supine. Prior Study Comparison: 06/22/2020 Bilateral Diagnostic Mammogram, [facility]. 03/22/2021 Left Diagnostic Mammogram, [facility]. 07/03/2021 Bilateral Screening Mammogram, [facility]. Findings: The upper outer quadrant of the right breast, the axilla of the right breast and the retroareolar of the right breast were scanned. No solid or cystic masses are identified.. Overall Assessment: Negative, BI-RAD 1 Management: Screening Mammogram of both breasts in 1 year. A clinical breast exam by your physician is recommended on an annual basis and results should be correlated with mammographic findings. This exam should not preclude additional follow-up of suspicious palpable abnormalities. Results were given to the patient verbally at the time of exam. Electronically signed and approved by: Doug Patel M.D. Radiologis
== END | disposition home or self-care (01) ==
LOC: RADMAMWWP 12:51
PROVIDERS: ATTEND Surgery
DX: R92.8 Other abnormal and inconclusive findings on diagnostic imaging of breast (principal); Z78.0 Asymptomatic menopausal state; Z80.3 Family history of malignant neoplasm of breast
CPT/HCPCS: 77062; 77066

== ENCOUNTER → 2022-07-13 | Outpatient (CLI) | payer MEDICAID ==
[2022-07-13 09:44] VITALS: BP 148/78; PULSE 70; RESP 18; TEMP 98.3
--- NOTE | 2022-07-13 10:28 | P.PN ---
Subjective Progress Note Date: 07/13/22 Principal diagnosis: fibrocystic breast changes Fibrocystic breast changes Saray is a 55 -year-old white female status post stero-tactic core biopsy of the left breast on . Pathology was benign. Bilateral mammogram had been performed on . Scattered fibroglandular densities were noted. Calcifications were noted in the left breast at the 2 to 3 o'clock position which were increased and heterogeneous from prior studies. She had a bilateral ultrasound done which was negative for any suspicious lesions in either breast. The patient was recommended to undergo a stereotactic core biopsy of the left breast. Which was done. Pathology revealed fibrocystic changes. The patient had a bilateral mammogram followed by a right breast ultrasound on 07-09-22. This was BIRAD 1. The patient states several weeks ago she noted some increased firmness in the right breast in the upper-outer quadrant. She states that the nodularity has dissipated since it occurred. She did have an ultrasound of this area which did not show any definitive lesions of concern. Hysterectomy at 31, patient did not take her ovaries. We are uncertain as to when she went through menopause. Caffeine: pop and tea daily nicotine: none chocolate: twice a week hormones: none Family History: father: bladder cancer (smoker) Hormonal History: menarche: 11 1 stillborn, breast fed:no, age at first : 16 hysterectomy: 31 done for endometriosis, no cancer, left ovaries BCP: 2 months Surgical History: hysterectomy lipoma back of neck colon resection not cancer cardiac cath thyroid resection Medical History: restless leg syndrome palpitations high lipids low iron osteoporosis Social History: smoke: none alcohol: none drugs: none - Constitutional Constitutional: Reports night sweats improved, Denies chills, Denies fever - EENT Eyes: denies blurred vision, denies pain Ears: deny: decreased hearing, tinnitus Ears, nose, mouth and throat: Denies headache, Denies sore throat - Breasts Breasts: bilateral: as per HPI - Cardiovascular Cardiovascular: Denies chest pain, Denies shortness of breath - Respiratory Respiratory: Denies cough - Gastrointestinal Gastrointestinal: Reports as per HPI - Genitourinary (Female) Genitourinary: Denies dysuria, Denies hematuria - Menstruation Menstruation: Reports post hysterectomy - Musculoskeletal Musculoskeletal: Reports as per HPI - Integumentary Integumentary: Denies pruritus, Denies rash - Neurological Neurological: Denies numbness, Denies weakness - Psychiatric Psychiatric: Denies anxiety, Denies depression - Endocrine Comment: hypothyroid - Hematologic/Lymphatic Comment: none - Allergic/Immunologic Allergic/Immunologic: Reports as per HPI Objective - Vital Signs Vital signs: Vital Signs Temp 98.3 F 07/13/22 09:41 Pulse 70 07/13/22 09:41 Resp 18 07/13/22 09:41 BP 148/78 07/13/22 09:41 Pulse Ox 96 07/13/22 09:41 FiO2 Intake & Output 07/12/22 07/13/22 07/13/22 18:59 06:59 18:59 Weight 94.801 kg - Constitutional General appearance: Present: cooperative - EENT Eyes: Present: EOMI ENT: Present: hearing grossly normal - Neck Neck: Present: normal ROM - Respiratory Respiratory: bilateral: CTA - Cardiovascular Rhythm: regular Heart sounds: normal: S1, S2 - Gastrointestinal General gastrointestinal: Present: soft - Integumentary Integumentary: Present: normal turgor - Musculoskeletal Musculoskeletal: Present: gait normal - Psychiatric Psychiatric: Present: A&O x's 3, appropriate affect, intact judgment & insight - Additional findings Additional findings: Breast Exam: BR: 3X inspection: Bilateral grade 2 ptosis; the right breast is larger than the left breast Palpation: Right breast: Multi-positional exam no dominant masses or nodules of concern; there is asymmetry between the right upper quadrant and the left upper quadrant with slightly more tissue in the right upper quadrant but no discrete mass Right axilla: No adenopathy of concern Left breast: Multiple positional exam no dominant masses or nodules of concern Left axilla: No adenopathy of concern Fungal infection under both breast Assessment and Plan Assessment: Impression: restless leg syndrome palpitations high lipids low iron osteoporosis Mastodynia right breast improved Asymmetry of the breast Recent bilateral mammogram and right breast ultrasound [place] [address] [place] [id number] Plan: Conservative management of breast pain Decrease caffeine intake If patient notes that the firmness recurs we would like to see her again At this time there is nothing which would warrant interventional biopsy Patient is given a book on breast pain Bilateral mammogram 1 year with physician exam at that time CC: Dr. Menchaca
== END ==
LOC: WWCWWP 09:27
PROVIDERS: ATTEND Surgery
DX: N64.4 Mastodynia (principal); R92.8 Other abnormal and inconclusive findings on diagnostic imaging of breast; G25.81 Restless legs syndrome; M81.0 Age-related osteoporosis without current pathological fracture; N60.12 Diffuse cystic mastopathy of left breast; N64.89 Other specified disorders of breast; E78.5 Hyperlipidemia, unspecified; E61.1 Iron deficiency; Z80.52 Family history of malignant neoplasm of bladder

== ENCOUNTER → 2022-11-23 | Outpatient (CLI) | payer MEDICAID ==
--- NOTE | 2022-11-23 10:18 | US ---
EXAMINATION TYPE: US abdomen complete DATE OF EXAM: 11/23/2022 COMPARISON: CT CLINICAL INDICATION: Female, 56 years old with history of R10.9 abd pain; Pt states RUQ post prandial pain TECHNIQUE: Multiple sonographic images of the abdomen are obtained. FINDINGS: EXAM MEASUREMENTS: Liver Length: 17.1 cm Gallbladder Wall: 0.3 cm CBD: 0.5 cm Spleen: 11.1 cm Right Kidney: 11.5 x 4.1 x 4.7 cm Left Kidney: 10.8 x 5.0 x 4.8 cm TANNING SALON ATTENDANT NOTES: Pancreas: 2mm panc duct visualized, tail obscured by overlying bowel gas Liver: Heterogeneous, difficult to penetrate, bright echotexture Gallbladder: lumen clear, possibly distended Evidence for sonographic Ontiveros's sign: Yes CBD: wnl Spleen: wnl Right Kidney: wnl Left Kidney: wnl Upper IVC: wnl Abd Aorta: wnl The intrahepatic portion of the IVC and proximal abdominal aorta are within normal limits. There is no evidence of cholelithiasis. Common bile duct is unremarkable. The visualized portions of the lindsey creas are homogenous. The spleen is unremarkable. Kidneys are symmetric and free of hydronephrosis. No renal lesions are seen. IMPRESSION: Hepatic steatosis.
[2022-11-23 13:15] LABS: Basophils # (A) 0.06 X 10*3/uL (0.00-0.10); Basophils % (A) 0.8 %; Eosinophils # (A) 0.18 X 10*3/uL (0.04-0.35); Eosinophils % (A) 2.3 %; HCT 42.9 % (37.2-46.3); HGB 14.1 d/dL (12.0-15.0); Lymphocytes # (A) 2.34 X 10*3/uL (0.90-5.00); Lymphocytes % (A) 29.7 %; MCH 29.8 pg (27.0-32.0); MCHC 32.9 d/dL (32.0-37.0); MCV 90.7 FL (80.0-97.0); Mean Platelet Volume 11.6 FL (9.5-12.2); Monocytes # (A) 0.42 X 10*3/uL (0.20-1.00); Monocytes % (A) 5.3 %; NRBC Per 100 WBC 0 X 10*3/uL (0.00-0.01); Neutrophils # (A) 4.85 X 10*3/uL (1.80-7.70); Neutrophils % (A) 61.6 %; Platelet Count 241 X 10*3/uL (140-440); RBC 4.73 X 10*6/uL (4.10-5.20); RDW 13.2 % (11.5-14.5); WBC 7.87 X 10*3/uL (4.50-10.00)
[2022-11-23 14:09] LABS: LDL Cholesterol,Calculated 78.7 mg/dL (0.0-131.0); T4, Free (Free Thyroxine) 1.45 ng/dL (0.80-1.80)
[2022-11-23 14:18] LABS: ALT 42 U/L (8-44); AST 39 U/L (13-35); Albumin 4.7 d/dL (3.8-4.9); Albumin/Globulin Ratio 2.24 Ratio (1.60-3.17); Alkaline Phosphatase 104 U/L (41-126); BUN/Creat Ratio 15.62 Ratio (12.00-20.00); Blood Urea Nitrogen 12.5 mg/dL (9.0-27.0); Calcium 9.8 mg/dL (8.7-10.3); Carbon Dioxide 26.3 mmol/L (21.6-31.8); Chloride 106 mmol/L (96-109); Globulin 2.1 d/dL (1.6-3.3); Glucose 97 mg/dL (70-110); Potassium 4.7 mmol/L (3.5-5.5); Sodium 144 mmol/L (135-145); Total Bilirubin 0.5 mg/dL (0.3-1.2); Total Protein 6.8 d/dL (6.2-8.2)
== END | disposition home or self-care (01) ==
LOC: RADUSWWP 07:36
PROVIDERS: ATTEND Internal Medicine Geriatric Medicine
DX: K76.0 Fatty (change of) liver, not elsewhere classified (principal); R10.9 Unspecified abdominal pain
CPT/HCPCS: 76700; 80053; 80061; 83036; 84439; 84443; 85025

== ENCOUNTER → 2023-07-16 | Outpatient (CLI) | payer MEDICAID ==
--- NOTE | 2023-07-18 12:53 | MM ---
Reason for Exam: Screening (asymptomatic). Last mammogram was performed 1 year(s) and 1 month(s) ago. Patient History: Menarche at age 11. First Full-Term at age 16. Hysterectomy at age 32. Postmenopausal. 08/04/2020, Benign Core Biopsy on the left side. Maternal aunt had breast cancer, age 43. Risk Values: Zeny 5 year model risk: 1.1%. NCI Lifetime model risk: 6.6%. Prior Study Comparison: 03/22/2021 Left Diagnostic Mammogram, [facility]. 07/03/2021 Bilateral Screening Mammogram, [facility]. 07/09/2022 Bilateral MG 3D diag mammo w/cad RAY, [facility]. Tissue Density: The breasts are heterogeneously dense, which may obscure small masses. Findings: Analyzed By CAD. There is no suspicious group of microcalcifications or new suspicious mass in either breast. Radiopaque clip marker right breast from prior biopsy. Overall Assessment: Benign, BI-RAD 2 Management: Screening Mammogram of both breasts in 1 year. . Patient should continue monthly self-breast exams. A clinical breast exam by your physician is recommended on an annual basis. This exam should not preclude additional follow-up of suspicious palpable abnormalities. Note on Zeny scores and lifetime risk: 1. A Zeny score greater than 3% is considered moderate risk. If this is the case, consider specialist referral to assess eligibility for a risk reducing agent. 2. If overall lifetime risk for the development of breast cancer is 20% or higher, the patient may qualify for future screening with alternating mammogram and breast MRI. Electronically signed and approved by: Doug aPtel M.D. Radiologis
== END | disposition home or self-care (01) ==
LOC: RADMAMWWP 07:37
PROVIDERS: ATTEND Surgery
DX: Z12.31 Encounter for screening mammogram for malignant neoplasm of breast (principal); Z80.3 Family history of malignant neoplasm of breast; Z78.0 Asymptomatic menopausal state
CPT/HCPCS: 77063; 77067

== ENCOUNTER → 2023-07-18 | Outpatient (CLI) | payer MEDICAID ==
[2023-07-18 10:20] VITALS: BP 117/79; PULSE 63; RESP 16; TEMP 97.9
--- NOTE | 2023-07-18 10:27 | P.PN ---
Subjective Progress Note Date: 07/18/23 Principal diagnosis: fibrocystic breast disease 07-18-23 Principal diagnosis: fibrocystic breast changes Fibrocystic breast changes Saray is a 57 -year-old white female status post stero-tactic core biopsy of the left breast on . Pathology was benign. Bilateral mammogram had been performed on . Scattered fibroglandular densities were noted. Calcifications were noted in the left breast at the 2 to 3 o'clock position which were increased and heterogeneous from prior studies. She had a bilateral ultrasound done which was negative for any suspicious lesions in either breast. The patient was recommended to undergo a stereotactic core biopsy of the left breast. Which was done. Pathology revealed fibrocystic changes. The patient had a bilateral mammogram followed by a right breast ultrasound on 07-09-22. This was BIRAD 1. The patient in 2022 noted some increased firmness in the right breast in the upper-outer quadrant. She states that the nodularity dissipated since it occurred. She did have an ultrasound of this area which did not show any definitive lesions of concern. Hysterectomy at 31, patient did not take her ovaries. We are uncertain as to when she went through menopause. Most recent mammogram bilateral 07-18-23 results pending, not complaining of any new lumps masses or nodules of concern in either breast. Caffeine: pop and tea daily nicotine: none chocolate: twice a week hormones: none Family History: father: bladder cancer (smoker) aunt paternal: breast cancer Hormonal History: menarche: 11 1 stillborn, breast fed:no, age at first : 16 hysterectomy: 31 done for endometriosis, no cancer, left ovaries BCP: 2 months Surgical History: hysterectomy lipoma back of neck colon resection not cancer cardiac cath thyroid resection Medical History: restless leg syndrome palpitations high lipids low iron osteoporosis Social History: smoke: none alcohol: none drugs: none - Constitutional Constitutional: Reports night sweats improved, Denies chills, Denies fever - EENT Eyes: denies blurred vision, denies pain Ears: deny: decreased hearing, tinnitus Ears, nose, mouth and throat: Denies headache, Denies sore throat - Breasts Breasts: bilateral: as per HPI - Cardiovascular Cardiovascular: Denies chest pain, Denies shortness of breath - Respiratory Respiratory: Denies cough - Gastrointestinal Gastrointestinal: Reports as per HPI - Genitourinary (Female) Genitourinary: Denies dysuria, Denies hematuria - Menstruation Menstruation: Reports post hysterectomy - Musculoskeletal Musculoskeletal: Reports as per HPI - Integumentary Integumentary: Denies pruritus, Denies rash - Neurological Neurological: Denies numbness, Denies weakness - Psychiatric Psychiatric: Denies anxiety, Denies depression - Endocrine Comment: hypothyroid - Hematologic/Lymphatic Comment: none - Allergic/Immunologic Allergic/Immunologic: Reports as per HPI Objective - Vital Signs Vital signs: Vital Signs Temp 97.9 F 07/18/23 09:56 Pulse 63 07/18/23 09:56 Resp 16 07/18/23 09:56 BP 117/79 07/18/23 09:56 Pulse Ox 96 07/18/23 09:56 FiO2 Intake & Output 07/17/23 07/18/23 07/18/23 18:59 06:59 18:59 Weight 90.265 kg - Constitutional General appearance: Present: cooperative - EENT Eyes: Present: EOMI ENT: Present: hearing grossly normal - Neck Neck: Present: normal ROM - Respiratory Respiratory: bilateral: CTA - Cardiovascular Rhythm: regular Heart sounds: normal: S1, S2 - Gastrointestinal General gastrointestinal: Present: soft - Integumentary Integumentary: Present: normal turgor - Musculoskeletal Musculoskeletal: Present: gait normal - Psychiatric Psychiatric: Present: A&O x's 3, appropriate affect, intact judgment & insight - Additional findings Additional findings: Breast Exam: BRA: 3X inspection: Bilateral grade 2 ptosis; the right breast is larger than the left breast Palpation: Right breast: Multi-positional exam no dominant masses or nodules of concern; there is asymmetry between the right upper quadrant and the left upper quadrant with slightly more tissue in the right upper quadrant but no discrete mass Right axilla: No adenopathy of concern Left breast: Multiple positional exam no dominant masses or nodules of concern Left axilla: No adenopathy of concern Fungal infection under both breast resolved Assessment and Plan Assessment: Impression: restless leg syndrome palpitations high lipids low iron osteoporosis Mastodynia right breast improved Asymmetry of the breast bilateral mammogram and right breast ultrasound BIRADS 1 done on , bilateral mammogram on 07-16-23 results pending Plan: breast pain improved At this time there is nothing which would warrant interventional biopsy on physical exam await results of mammogram CC: Dr. Menchaca
== END ==
LOC: WWCWWP 09:48
PROVIDERS: ATTEND Surgery
DX: R92.321 Mammographic fibroglandular density, right breast (principal); N60.12 Diffuse cystic mastopathy of left breast; R92.1 Mammographic calcification found on diagnostic imaging of breast; G25.81 Restless legs syndrome; R00.2 Palpitations; M81.0 Age-related osteoporosis without current pathological fracture; N64.4 Mastodynia; N64.89 Other specified disorders of breast; E61.1 Iron deficiency; E78.5 Hyperlipidemia, unspecified; Z80.3 Family history of malignant neoplasm of breast; Z90.710 Acquired absence of both cervix and uterus

== ENCOUNTER 2023-10-30 09:10 | Emergency (ER) | payer MEDICAID ==
[2023-10-30 09:19] VITALS: TEMP 98.4
--- NOTE | 2023-10-30 10:16 | ED ---
General Adult HPI - General Chief complaint: Arrhythmia/Palpitations Stated complaint: pain in L thumb/dizzy Time Seen by Provider: 10/30/23 09:25 Source: patient, RN notes reviewed, old records reviewed Mode of arrival: ambulatory Limitations: no limitations - History of Present Illness Initial comments: This is a 57-year-old female who presents to the emergency department complaining of having episodes of palpitation nausea and dizziness for the last 3 weeks. Patient also has had some pain in the left thumb region over the last 3 weeks the thumb pain does not associated with the episodes of palpitations. Patient states these palpitation episodes last about 5 minutes normally. Patient also states she has been a little nauseated every morning after she eats. Patient states she also has been diaphoretic at times when her heart is racing. Patient denies any injury to her thumb region. Patient states that pain is getting worse but patient states last night at 3:00 her thumb was burning and she was having the palpitations. Palpitations lasted last night between 5 and 8 minutes she was diaphoretic she states. Patient denies any chest pain shortness of breath or difficulty breathing. Patient has any recent fever chills or cough. Patient does not have any palpitations currently. - Related Data Home Medications Medication Instructions Recorded Confirmed Levothyroxine Sodium [Synthroid] 137 mcg PO DAILY@1200 08/17/15 10/30/23 Atorvastatin [Lipitor] 10 mg PO HS 07/05/17 10/30/23 Ferrous Sulfate [Iron (65 MG 325 mg PO DAILY@1200 08/13/17 10/30/23 Elemental)] Baclofen [Lioresal] 10 mg PO HS 08/21/18 10/30/23 Metoprolol Succinate (ER) [Toprol 25 mg PO HS 03/11/20 10/30/23 XL] Cyanocobalamin (Vitamin B-12) 5,000 mcg PO DAILY 10/30/23 10/30/23 [Vitamin B-12] Folic Acid 1 mg PO DAILY@1200 10/30/23 10/30/23 Multivit-Min/Iron Fum/Folic AC 1 tab PO DAILY 10/30/23 10/30/23 [One-A-Day Women's Complete Tab] Allergies Allergy/AdvReac Type Severity Reaction Status Date / Time No Known Allergies Allergy Verified 10/30/23 11:54 Review of Systems ROS Statement: Those systems with pertinent positive or pertinent negative responses have been documented in the HPI. ROS Other: All systems not noted in ROS Statement are negative. Past Medical History Past Medical History: Hyperlipidemia, Osteoarthritis (OA), Thyroid Disorder Additional Past Medical History / Comment(s): RLS., anemia, occasional "racing heart" ., states mass in colon/ hemicolectomy. History of Any Multi-Drug Resistant Organisms: None Reported Past Surgical History: Appendectomy, Heart Catheterization, Hysterectomy Additional Past Surgical History / Comment(s): partial thyroidectomy, fatty tumor on neck, R hemicolectomy. Past Anesthesia/Blood Transfusion Reactions: Postoperative Nausea & Vomiting (PONV) Past Psychological History: No Psychological Hx Reported Smoking Status: Never smoker Past Alcohol Use History: None Reported Past Drug Use History: None Reported - Past Family History Father Family Medical History: Cancer, Myocardial Infarction (SC) Additional Family Medical History / Comment(s): Bladder CA, from [place]-CABG Mother Family Medical History: Diabetes Mellitus, Hypertension Additional Family Medical History / Comment(s): Mur[place] Son(s) Family Medical History: Diabetes Mellitus Sister(s) Family Medical History: Diabetes Mellitus, Hyperlipidemia General Exam - General Exam Comments Initial Comments: GENERAL: Patient is well-developed and well-nourished. Patient is nontoxic and well- hydrated and is in no acute distress. ENT: Neck is soft and supple. No significant lymphadenopathy is noted. Oropharynx is clear. Moist mucous membranes. Neck has full range of motion without eliciting any pain. EYES: The sclera were anicteric and conjunctiva were pink and moist. Extraocular movements were intact and pupils were equal round and reactive to light. Eyelids were unremarkable. PULMONARY: Unlabored respirations. Good breath sounds bilaterally. No audible rales rhonchi or wheezing was noted. CARDIOVASCULAR: There is a regular rate and rhythm without any murmurs gallops or rubs. ABDOMEN: Soft and nontender with normal bowel sounds. SKIN: Skin is clear with no lesions or rashes and otherwise unremarkable. NEUROLOGIC: Patient is alert and oriented x3. Cranial nerves II through XII are grossly intact. Motor and sensory are also intact. Normal speech, volume and content. Symmetrical smile. MUSCULOSKELETAL: Normal extremities with adequate strength and full range of motion. Patient has reproducible pain along the extensor surface of her left thumb. There is no redness or swelling in the area LYMPHATICS: No significant lymphadenopathy is noted PSYCHIATRIC: Normal psychiatric evaluation. Limitations: no limitations Course Vital Signs 10/30/23 10/30/23 10/30/23 09:16 10:23 10:30 Temperature 98.4 F Pulse Rate 65 64 61 Respiratory 20 18 Rate Blood Pressure 160/80 143/88 O2 Sat by Pulse 96 Oximetry Medical Decision Making - Medical Decision Making EKG is interpreted by myself but EKG shows sinus rhythm at 67 bpm WY interval 149 QRS is 92 QT interval 385 QTc is 401. Patient's EKG shows no ST segment elevation or depression. Was pt. sent in by a medical professional or institution (, PA, CLINICAL TRAINER, urgent care, hospital, or [facility]...) When possible be specific @ -No Did you speak to anyone other than the patient for history (EMS, parent, family, police, friend...)? What history was obtained from this source @ -No Did you review nursing and triage notes (agree or disagree)? Why? @ -I reviewed and agree with nursing and triage notes Were old charts reviewed (outside hosp., previous admission, EMS record, old EKG, old radiological studies, urgent care reports/EKG's, [facility] records)? Report findings @ -No old charts were reviewed Differential Diagnosis? @ -Differential Palpitations Ventricular arrhythmias, atrial arrhythmias, myocardial infarction, anemia, thyrotoxicosis, electrolyte imbalance, hypokalemia, pulmonary embolism, pulmonary disease, drugs, alcohol, anxiety, stress.... This is not meant to be an all-inclusive list. EKG interpreted by me (3pts min.). @ -As above X-rays interpreted by me (1pt min.). @ -Hand x-ray shows osteoarthritis of the base of the thumb. Patient chest x- ray shows no acute abnormality CT interpreted by me (1pt min.). @ -None done U/S interpreted by me (1pt. min.). @ -None done What testing was considered but not performed or refused? (CT, X-rays, U/S, labs)? Why? @ -None What meds were considered but not given or refused? Why? @ -None Did you discuss the management of the patient with other professionals (professionals i.e. , PA, CLINICAL TRAINER, lab, RT, psych nurse, social psychologist, business school dean, teacher, credit officer, case checker)? Give summary @ -No Was smoking cessation discussed for >3mins.? @ -No Was critical care preformed (if so, how long)? @ -No Were there social determinants of health that impacted care today? How? (Homelessness, low income, unemployed, alcoholism, drug addiction, transportation, low edu. Level, literacy, decrease access to med. care, [facility], re hab)? @ -No Was there de-escalation of care discussed even if they declined (Discuss DNR or withdrawal of care, Hospice)? DNR status @ -No What co-morbidities impacted this encounter? (DM, HTN, Smoking, COPD, CAD, Cancer, CVA, ARF, Chemo, Hep., AIDS, mental health diagnosis, sleep apnea, morbid obesity)? @ -None Was patient admitted / discharged? Hospital course, mention meds given and route, prescriptions, significant lab abnormalities, going to OR and other pertinent info. @ -Patient was asymptomatic throughout most of her ED course. Undiagnosed new problem with uncertain prognosis? @ -No Drug Therapy requiring intensive monitoring for toxicity (Heparin, Nitro, Insulin, Cardizem)? @ -No Were any procedures done? @ -No Diagnosis/symptom? @ -Palpitations Acute, or Chronic, or Acute on Chronic? @ -Acute Uncomplicated (without systemic symptoms) or Complicated (systemic symptoms)? @ -Complicated Side effects of treatment? @ -No Exacerbation, Progression, or Severe Exacerbation? @ -No Poses a threat to life or bodily function? How? (Chest pain, USA, SC, pneumonia, PE, COPD, DKA, ARF, appy, cholecystitis, CVA, Diverticulitis, Homicidal, Suicidal, threat to staff... and all critical care pts) @ -No - Lab Data Result diagrams: 10/30/23 10:12 10/30/23 10:12 Lab Results 10/30/23 10/30/23 10/30/23 Range/Units 10:12 10:12 10:12 WBC 7.9 (3.8-10.6) k/uL RBC 4.64 (3.80-5.40) m/uL Hgb 14.1 (11.4-16.0) gm/dL Hct 43.1 (34.0-46.0) % MCV 92.9 (80.0-100.0) fL MCH 30.3 (25.0-35.0) pg MCHC 32.7 (31.0-37.0) g/dL RDW 12.8 (11.5-15.5) % Plt Count 223 (150-450) k/uL MPV 8.9 Neutrophils % 61 % Lymphocytes % 29 % Monocytes % 6 % Eosinophils % 2 % Basophils % 1 % Neutrophils # 4.8 (1.3-7.7) k/uL Lymphocytes # 2.2 (1.0-4.8) k/uL Monocytes # 0.4 (0-1.0) k/uL Eosinophils # 0.2 (0-0.7) k/uL Basophils # 0.1 (0-0.2) k/uL PT 9.7 L (10.0-12.5) sec INR 0.9 (<1.2) APTT 23.6 (22.0-30.0) sec Sodium 141 (137-145) mmol/L Potassium 4.5 (3.5-5.1) mmol/L Chloride 107 (98-107) mmol/L Carbon Dioxide 29 (22-30) mmol/L Anion Gap 5 mmol/L BUN 11 (7-17) mg/dL Creatinine 0.64 (0.52-1.04) mg/dL Est GFR (CKD-EPI)AfAm >90 (>60 ml/min/1.73 sqM) Est GFR (CKD-EPI)NonAf >90 (>60 ml/min/1.73 sqM) Glucose 80 (74-99) mg/dL Calcium 10.0 (8.4-10.2) mg/dL Magnesium 2.1 (1.6-2.3) mg/dL Total Bilirubin 0.7 (0.2-1.3) mg/dL AST 39 H (14-36) U/L ALT 36 H (4-34) U/L Alkaline Phosphatase 77 (38-126) U/L Troponin I (0.000-0.034) ng/mL Total Protein 6.8 (6.3-8.2) g/dL Albumin 4.4 (3.5-5.0) g/dL Lipase 71 (23-300) U/L TSH 6.260 H (0.465-4.680) mIU/L 10/30/23 Range/Units 10:12 WBC (3.8-10.6) k/uL RBC (3.80-5.40) m/uL Hgb (11.4-16.0) gm/dL Hct (34.0-46.0) % MCV (80.0-100.0) fL MCH (25.0-35.0) pg MCHC (31.0-37.0) g/dL RDW (11.5-15.5) % Plt Count (150-450) k/uL MPV Neutrophils % % Lymphocytes % % Monocytes % % Eosinophils % % Basophils % % Neutrophils # (1.3-7.7) k/uL Lymphocytes # (1.0-4.8) k/uL Monocytes # (0-1.0) k/uL Eosinophils # (0-0.7) k/uL Basophils # (0-0.2) k/uL PT (10.0-12.5) sec INR (<1.2) APTT (22.0-30.0) sec Sodium (137-145) mmol/L Potassium (3.5-5.1) mmol/L Chloride (98-107) mmol/L Carbon Dioxide (22-30) mmol/L Anion Gap mmol/L BUN (7-17) mg/dL Creatinine (0.52-1.04) mg/dL Est GFR (CKD-EPI)AfAm (>60 ml/min/1.73 sqM) Est GFR (CKD-EPI)NonAf (>60 ml/min/1.73 sqM) Glucose (74-99) mg/dL Calcium (8.4-10.2) mg/dL Magnesium (1.6-2.3) mg/dL Total Bilirubin (0.2-1.3) mg/dL AST (14-36) U/L ALT (4-34) U/L Alkaline Phosphatase (38-126) U/L Troponin I <0.012 (0.000-0.034) ng/mL Total Protein (6.3-8.2) g/dL Albumin (3.5-5.0) g/dL Lipase (23-300) U/L TSH (0.465-4.680) mIU/L Disposition Clinical Impression: Osteoarthritis, Palpitations Disposition: HOME SELF-CARE Instructions (If sedation given, give patient instructions): Heart Palpitations (ED) Is patient prescribed a controlled substance at d/c from ED?: No Referrals: Ed Purcell MD [Primary Care Provider] - 1-2 days Time of Disposition: 12:36
[2023-10-30] MEDS: SODIUM CHLORIDE 0.9% 500 ML 500 ML IV STA (10:24)
[2023-10-30 10:32] VITALS: PULSE 61; RESP 18
[2023-10-30 10:47] LABS: Basophils # (A) 0.1 k/uL (0-0.2); Basophils % (A) 1 %; Eosinophils # (A) 0.2 k/uL (0-0.7); Eosinophils % (A) 2 %; HCT 43.1 % (34.0-46.0); HGB 14.1 gm/dL (11.4-16.0); Lymphocytes # (A) 2.2 k/uL (1.0-4.8); Lymphocytes % (A) 29 %; MCH 30.3 pg (25.0-35.0); MCHC 32.7 g/dL (31.0-37.0); MCV 92.9 fL (80.0-100.0); Mean Platelet Volume 8.9; Monocytes # (A) 0.4 k/uL (0-1.0); Monocytes % (A) 6 %; Neutrophils # (A) 4.8 k/uL (1.3-7.7); Neutrophils % (A) 61 %; Platelet Count 223 k/uL (150-450); RBC 4.64 m/uL (3.80-5.40); RDW 12.8 % (11.5-15.5); WBC 7.9 k/uL (3.8-10.6)
[2023-10-30 10:53] LABS: ALT 36 U/L (4-34); AST 39 U/L (14-36); African American GFR (CKD) >90 (>60 ml/min/1.73 sqM); Albumin 4.4 g/dL (3.5-5.0); Alkaline Phosphatase 77 U/L (38-126); Anion Gap 5 mmol/L; Blood Urea Nitrogen 11 mg/dL (7-17); Carbon Dioxide 29 mmol/L (22-30); Chloride 107 mmol/L (98-107); Glucose 80 mg/dL (74-99); Lipase 71 U/L (23-300); Magnesium 2.1 mg/dL (1.6-2.3); Non-African American GFR(CKD) >90 (>60 ml/min/1.73 sqM); Potassium 4.5 mmol/L (3.5-5.1); Sodium 141 mmol/L (137-145); Total Bilirubin 0.7 mg/dL (0.2-1.3); Total Protein 6.8 g/dL (6.3-8.2)
[2023-10-30 11:10] LABS: INR 0.9 (<1.2); Partial Thromboplastin Time 23.6 sec (22.0-30.0); Prothrombin Time 9.7 sec (10.0-12.5)
--- NOTE | 2023-10-30 12:06 | XR ---
EXAMINATION TYPE: XR chest 2V DATE OF EXAM: 10/30/2023 COMPARISON: 08/01/2021 HISTORY: 57-year-old female dysrhythmia TECHNIQUE: PA and lateral views FINDINGS: The heart is borderline in size. Aorta and pulmonary vasculature within normal limits. Stringy areas of atelectasis in the lungs. No consolidation or pleural effusion. IMPRESSION: Borderline heart size. Some strandy areas of atelectasis. No definite acute process.
--- NOTE | 2023-10-30 12:16 | XR ---
EXAMINATION TYPE: XR hand complete 3 views LT DATE OF EXAM: 10/30/2023 Comparison: None Clinical History: 57-year-old female Thumb pain Findings: Moderate degenerative joint space narrowing and marginal spurring at the first CMC joint. Small loose body noted. Overlying IV catheter. Osteopenia. No acute fracture, subluxation, dislocation seen. Impression: IV catheter overlying the thumb. 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 Otherwise, no acute osseous abnormality seen.
[2023-10-30 13:15] VITALS: BP 139/63
== END 2023-10-30 13:15 | disposition home or self-care (01) ==
LOC: EC 09:10
DX: R00.2 Palpitations (principal); M19.90 Unspecified osteoarthritis, unspecified site
CPT/HCPCS: 36415; 71046; 80053; 83690; 83735; 84443; 84484; 85025; 85610; 85730; 93005; 99285

== ENCOUNTER → 2023-12-26 | Outpatient (CLI) | payer MEDICAID ==
[2023-12-26 10:37] LABS: Basophils # (A) 0.07 X 10*3/uL (0.00-0.10); Basophils % (A) 0.9 %; Eosinophils # (A) 0.19 X 10*3/uL (0.04-0.35); Eosinophils % (A) 2.4 %; HCT 39.9 % (37.2-46.3); HGB 13.2 g/dL (12.0-15.0); Lymphocytes # (A) 2.13 X 10*3/uL (0.90-5.00); Lymphocytes % (A) 27.2 %; MCH 30.3 pg (27.0-32.0); MCHC 33.1 g/dL (32.0-37.0); MCV 91.5 FL (80.0-97.0); Mean Platelet Volume 11.2 FL (9.5-12.2); Monocytes # (A) 0.57 X 10*3/uL (0.20-1.00); Monocytes % (A) 7.3 %; NRBC Per 100 WBC 0 X 10*3/uL (0.00-0.01); Neutrophils # (A) 4.82 X 10*3/uL (1.80-7.70); Neutrophils % (A) 61.7 %; Platelet Count 228 X 10*3/uL (140-440); RBC 4.36 X 10*6/uL (4.10-5.20); RDW 13.2 % (11.5-14.5); WBC 7.82 X 10*3/uL (4.50-10.00)
[2023-12-26 10:57] LABS: ALT 35 U/L (8-44); AST 29 U/L (13-35); Albumin 4.2 g/dL (3.8-4.9); Alkaline Phosphatase 100 U/L (41-126); BUN/Creat Ratio 15.57 Ratio (12.00-20.00); Blood Urea Nitrogen 10.9 mg/dL (9.0-27.0); Calcium 9.2 mg/dL (8.7-10.3); Carbon Dioxide 24.6 mmol/L (21.6-31.8); Chloride 106 mmol/L (96-109); Glucose 109 mg/dL (70-110); Potassium 4.2 mmol/L (3.5-5.5); Sodium 144 mmol/L (135-145); Total Bilirubin 0.4 mg/dL (0.3-1.2); Total Protein 6.2 g/dL (6.2-8.2)
== END | disposition home or self-care (01) ==
LOC: LABWHC1 07:02
PROVIDERS: ATTEND Registered Nurse Gerontology
DX: E86.0 Dehydration (principal)
CPT/HCPCS: 36415; 80053; 85025

== ENCOUNTER → 2024-04-27 | Outpatient (CLI) | payer MEDICAID ==
[2024-04-27 10:30] LABS: Microalbumin Creatinine Ratio <6 mg/g Cr (0-30)
[2024-04-27 10:42] LABS: ALT 31 U/L (8-44); AST 26 U/L (13-35); Albumin 4.3 g/dL (3.8-4.9); Albumin/Globulin Ratio 1.87 Ratio (1.60-3.17); Alkaline Phosphatase 104 U/L (41-126); BUN/Creat Ratio 21.57 Ratio (12.00-20.00); Blood Urea Nitrogen 15.1 mg/dL (9.0-27.0); Calcium 9.4 mg/dL (8.7-10.3); Carbon Dioxide 25.9 mmol/L (21.6-31.8); Chloride 104 mmol/L (96-109); Chol/HDL Ratio 4.37 Ratio; Globulin 2.3 g/dL (1.6-3.3); Glucose 107 mg/dL (70-110); Potassium 4.4 mmol/L (3.5-5.5); Sodium 142 mmol/L (135-145); T4, Free (Free Thyroxine) 1.24 ng/dL (0.80-1.80); Total Bilirubin 0.5 mg/dL (0.3-1.2); Total Protein 6.6 g/dL (6.2-8.2)
[2024-04-27 11:12] LABS: Basophils # (A) 0.08 X 10*3/uL (0.00-0.10); Basophils % (A) 0.9 %; Eosinophils # (A) 0.26 X 10*3/uL (0.04-0.35); HCT 43.6 % (37.2-46.3); HGB 13.9 g/dL (12.0-15.0); Lymphocytes # (A) 2.39 X 10*3/uL (0.90-5.00); Lymphocytes % (A) 27.7 %; MCH 29.3 pg (27.0-32.0); MCHC 31.9 g/dL (32.0-37.0); MCV 91.8 FL (80.0-97.0); Mean Platelet Volume 11.7 FL (9.5-12.2); Monocytes # (A) 0.47 X 10*3/uL (0.20-1.00); Monocytes % (A) 5.4 %; NRBC Per 100 WBC 0 X 10*3/uL (0.00-0.01); Neutrophils # (A) 5.41 X 10*3/uL (1.80-7.70); Neutrophils % (A) 62.7 %; Platelet Count 259 X 10*3/uL (140-440); RBC 4.75 X 10*6/uL (4.10-5.20); RDW 13.1 % (11.5-14.5); WBC 8.64 X 10*3/uL (4.50-10.00)
== END | disposition home or self-care (01) ==
LOC: LABWHC1 07:05
PROVIDERS: ATTEND Internal Medicine Interventional Cardiology
DX: K75.81 Nonalcoholic steatohepatitis (NASH) (principal); R73.9 Hyperglycemia, unspecified; E78.2 Mixed hyperlipidemia; E03.9 Hypothyroidism, unspecified
CPT/HCPCS: 36415; 80053; 80061; 82043; 82570; 83036; 83721; 84439; 84443; 85025

== ENCOUNTER → 2024-07-16 | Outpatient (CLI) | payer MEDICAID ==
--- NOTE | 2024-07-16 10:35 | MM ---
Reason for Exam: Screening (asymptomatic). Last screening mammogram was performed 12 month(s) ago. Patient History: Menarche at age 11. First Full-Term at age 16. Hysterectomy at age 32. Postmenopausal. 08/04/2020, Benign Core Biopsy on the left side. Maternal aunt had breast cancer, age 43. Risk Values: Zeny 5 year model risk: 1.2%. NCI Lifetime model risk: 6.4%. Prior Study Comparison: 07/03/2021 Bilateral Screening Mammogram, [facility]. 07/09/2022 Bilateral MG 3D diag mammo w/cad [facility], [facility]. 07/16/2023 Bilateral MG 3D screening mammo w/cad, [facility]. Tissue Density: There are scattered areas of fibroglandular density. Findings: Analyzed By CAD. Increasing calcifications upper outer left breast. Additional views are recommended. Stable benign calcifications right breast. Overall Assessment: Incomplete: need additional imaging evaluation, BI-RAD 0 Management: Diagnostic Mammogram of the left breast. . Patient should continue monthly self-breast exams. A clinical breast exam by your physician is recommended on an annual basis. This exam should not preclude additional follow-up of suspicious palpable abnormalities. Note on Zeny scores and lifetime risk: 1. A Zeny score greater than 3% is considered moderate risk. If this is the case, consider specialist referral to assess eligibility for a risk reducing agent. 2. If overall lifetime risk for the development of breast cancer is 20% or higher, the patient may qualify for future screening with alternating mammogram and breast MRI. [facility], , 07/16/2024 10:32 AM. Electronically signed and approved by: Doug Patel M.D. Radiologis
== END | disposition home or self-care (01) ==
LOC: RADMAMWWP 10:05
PROVIDERS: ATTEND Surgery
DX: Z12.31 Encounter for screening mammogram for malignant neoplasm of breast (principal); R92.323 Mammographic fibroglandular density, bilateral breasts; R92.1 Mammographic calcification found on diagnostic imaging of breast; Z78.0 Asymptomatic menopausal state; Z80.3 Family history of malignant neoplasm of breast
CPT/HCPCS: 77063; 77067

== ENCOUNTER → 2024-07-20 | Outpatient (CLI) | payer MEDICAID ==
--- NOTE | 2024-07-20 12:14 | MM ---
Reason for Exam: Additional evaluation requested from abnormal screening. Last screening mammogram was performed less than 1 month ago. Patient History: Menarche at age 11. First Full-Term at age 16. Hysterectomy at age 32. Postmenopausal. 08/04/2020, Benign Core Biopsy on the left side. Maternal aunt had breast cancer, age 43. Risk Values: Zeny 5 year model risk: 1.2%. NCI Lifetime model risk: 6.4%. Prior Study Comparison: 07/09/2022 Bilateral MG 3D diag mammo w/cad [facility], [facility]. 07/16/2023 Bilateral MG 3D screening mammo w/cad, [facility]. 07/16/2024 Bilateral MG 3D screening mammo w/cad, [facility]. Tissue Density: Left: There are scattered areas of fibroglandular density. Findings: Analyzed By CAD. Focal asymmetry redemonstrated upper outer quadrant left breast. Some associated nodularity remains unchanged. On magnification views, grouped and regional microcalcifications in this area remain unchanged and similar in appearance. No significant change from prior exams. Overall Assessment: Benign, BI-RAD 2 Management: Screening Mammogram of both breasts in 1 year. Results were given to the patient verbally at the time of exam. Patient should continue monthly self-breast exams. A clinical breast exam by your physician is recommended on an annual basis. This exam should not preclude additional follow-up of suspicious palpable abnormalities. Note on Zeny scores and lifetime risk: 1. A Zeny score greater than 3% is considered moderate risk. If this is the case, consider specialist referral to assess eligibility for a risk reducing agent. 2. If overall lifetime risk for the development of breast cancer is 20% or higher, the patient may qualify for future screening with alternating mammogram and breast MRI. [facility], , 07/20/2024 12:11 PM. Electronically signed and approved by: Jose Aguirre M.D. Radiologist
== END | disposition home or self-care (01) ==
LOC: RADMAMWWP 11:31
PROVIDERS: ATTEND Surgery
DX: R92.8 Other abnormal and inconclusive findings on diagnostic imaging of breast (principal); R92.312 Mammographic fatty tissue density, left breast; Z78.0 Asymptomatic menopausal state; Z80.3 Family history of malignant neoplasm of breast
CPT/HCPCS: 77061; 77065

== ENCOUNTER → 2024-07-23 | Outpatient (CLI) | payer MEDICAID ==
[2024-07-23 10:36] VITALS: BP 123/79; PULSE 73; RESP 17; TEMP 97.9
--- NOTE | 2024-07-23 10:48 | P.PN ---
Subjective Progress Note Date: 07/23/24 Principal diagnosis: fibrocystic breast disease bilateral mammogram on 07-16-23 reviewed and BIRAD 2 repeat mammogram in 1 year with appointment at that time. Patient called. Addendum entered and electronically signed by Shannon Kearns MD 07/18/23 10:27: If the mammogram results are BI-RADS 2 then we will repeat bilateral mammogram in 1 year with examination at that time Original Note: Subjective Progress Note Date: Principal diagnosis: fibrocystic breast disease 07-23-24 Principal diagnosis: fibrocystic breast changes Fibrocystic breast changes Saray is a 57 -year-old white female status post stero-tactic core biopsy of the left breast on . Pathology was benign. Bilateral mammogram had been performed on . Scattered fibroglandular densities were noted. Calcifications were noted in the left breast at the 2 to 3 o'clock position which were increased and heterogeneous from prior studies. She had a bilateral ultrasound done which was negative for any suspicious lesions in either breast. The patient was recommended to undergo a stereotactic core biopsy of the left breast. Which was done. Pathology revealed fibrocystic changes. The patient had a bilateral mammogram followed by a right breast ultrasound on 07-09-22. This was BIRAD 1. The patient in 2022 noted some increased firmness in the right breast in the upper-outer quadrant. She states that the nodularity dissipated since it occurred. She did have an ultrasound of this area which did not show any definitive lesions of concern. Hysterectomy at 31, did not take her ovaries. We are uncertain as to when she went through menopause. Most recent mammogram bilateral 07-20-24 with additional views of the left breast , BIRAD 2 stable findings not complaining of any new lumps masses or nodules of concern in either breast. She is not complaining of any new lumps masses or nodules of concern in either breast Caffeine: pop and tea daily nicotine: none chocolate: twice a week hormones: none Family History: father: bladder cancer (smoker) aunt paternal: breast cancer Hormonal History: menarche: 11 1 stillborn, breast fed:no, age at first : 16 hysterectomy: 31 done for endometriosis, no cancer, left ovaries BCP: 2 months Surgical History: hysterectomy lipoma back of neck colon resection not cancer cardiac cath thyroid resection Medical History: restless leg syndrome palpitations high lipids low iron osteoporosis Social History: smoke: none alcohol: none drugs: none - Constitutional Constitutional: Reports night sweats improved, Denies chills, Denies fever - EENT Eyes: denies blurred vision, denies pain Ears: deny: decreased hearing, tinnitus Ears, nose, mouth and throat: Denies headache, Denies sore throat - Breasts Breasts: bilateral: as per HPI - Cardiovascular Cardiovascular: Denies chest pain, Denies shortness of breath - Respiratory Respiratory: Denies cough - Gastrointestinal Gastrointestinal: Reports as per HPI - Genitourinary (Female) Genitourinary: Denies dysuria, Denies hematuria - Menstruation Menstruation: Reports post hysterectomy - Musculoskeletal Musculoskeletal: Reports as per HPI - Integumentary Integumentary: Denies pruritus, Denies rash - Neurological Neurological: Denies numbness, Denies weakness - Psychiatric Psychiatric: Denies anxiety, Denies depression - Endocrine Comment: hypothyroid - Hematologic/Lymphatic Comment: none - Allergic/Immunologic Allergic/Immunologic: Reports as per HPI Objective - Constitutional General appearance: Present: cooperative - EENT Eyes: Present: EOMI ENT: Present: hearing grossly normal - Neck Neck: Present: normal ROM - Respiratory Respiratory: bilateral: CTA - Cardiovascular Rhythm: regular Heart sounds: normal: S1, S2 - Integumentary Integumentary: Present: normal turgor - Musculoskeletal Musculoskeletal: Present: gait normal - Psychiatric Psychiatric: Present: A&O x's 3, appropriate affect, intact judgment & insight - Additional findings Additional findings: Breast Exam: BRA: 3X inspection: Bilateral grade 2 ptosis; the right breast is larger than the left breast Palpation: Right breast: Multi-positional exam no dominant masses or nodules of concern; there is asymmetry between the right upper quadrant and the left upper quadrant with slightly more tissue in the right upper quadrant but no discrete mass Right axilla: No adenopathy of concern Left breast: Multiple positional exam no dominant masses or nodules of concern Left axilla: No adenopathy of concern Assessment and Plan Assessment: Impression: restless leg syndrome palpitations high lipids low iron osteoporosis Mastodynia right breast improved Asymmetry of the breast bilateral mammogram and left breast spot views 07-20-24 BIRAD 2 Plan: breast pain improved At this time there is nothing which would warrant interventional biopsy on physical exam bilateral mammogram in 1 year with appointment at that time CC: Dr. Menchaca
== END ==
LOC: WWCWWP 09:58
PROVIDERS: ATTEND Surgery
DX: Z12.31 Encounter for screening mammogram for malignant neoplasm of breast (principal); N60.12 Diffuse cystic mastopathy of left breast

== ENCOUNTER → 2024-10-28 | Outpatient (CLI) | payer MEDICAID ==
[2024-10-28 10:46] LABS: ALT 38 U/L (8-44); AST 35 U/L (13-35); Cholesterol 206.00 mg/dL (0.00-200.00); HDL Cholesterol 55.90 mg/dL (40.00-60.00); LDL Cholesterol,Calculated 101.7 mg/dL (0.0-131.0); Triglycerides 242.00 mg/dL (0.00-149.00); VLDL Calculation 48.40 mg/dL (5.00-40.00)
== END | disposition home or self-care (01) ==
LOC: LABWHC1 07:56
PROVIDERS: ATTEND Internal Medicine Interventional Cardiology
DX: E78.2 Mixed hyperlipidemia (principal)
CPT/HCPCS: 36415; 80061; 84450; 84460